=== PATIENT | male | born 1945 | race Caucasian/White ===

== ENCOUNTER → 2017-04-13 | Outpatient (CLI) | payer MEDICARE, BC ==
--- NOTE | 2017-04-14 07:07 | US ---
EXAMINATION TYPE: US carotid duplex BILAT DATE OF EXAM: 04/13/2017 COMPARISON: US 2014 CLINICAL HISTORY: htn, I10, I73.9 Peripheral vascular disease, unsp. PAD EXAM MEASUREMENTS: RIGHT: Peak Systolic Velocity (PSV) cm/sec ----- Right CCA: 100.9 ----- Right ICA: 123.0 ----- Right ECA: 115.3 ICA/CCA ratio: 1.2 RIGHT: End Diastole cm/sec ----- Right CCA: 18.3 ----- Right ICA: 34.5 ----- Right ECA: 0.0 LEFT: Peak Systolic Velocity (PSV) cm/sec ----- Left CCA: 80.6 ----- Left ICA: 133.6 ----- Left ECA: 155.5 ICA/CCA ratio: 1.7 LEFT: End Diastole cm/sec ----- Left CCA: 17.3 ----- Left ICA: 37.5 ----- Left ECA: 12.3 VERTEBRALS (direction of flow): Right Vertebral: Antegrade Left Vertebral: Antegrade Rhythm: Elevated velocities: left mid ICA and left mid ECA, no significant stenosis. IMPRESSION: 1. 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 2. No hemodynamically significant stenosis within the right carotid system.
--- NOTE | 2017-04-14 12:00 | ECHOF ---
Referral Reason:htn, I10, I73.9 Peripheral vascular disease, unsp MEASUREMENTS -------- HEIGHT: 170.2 cm WEIGHT: 71.2 kg BP: IVSd: 1.0 cm (0.6 - 1.1) LVIDd: 4.8 cm (3.9 - 5.3) LVPWd: 1.2 cm (0.6 - 1.1) IVSs: 1.5 cm LVIDs: 3.8 cm LVPWs: 1.5 cm LAESV Index (A-L): 29.56 ml/m Ao Diam: 3.1 cm (2.0 - 3.7) AV Cusp: 0.8 cm (1.5 - 2.6) LA Diam: 0.0 cm (2.7 - 3.8) MV E Robe: 0.98 m/s MV DecT: 286 ms MV A Robe: 0.70 m/s MV E/A Ratio: 1.40 AR PHT: 568 ms RAP: 5.00 mmHg RVSP: 27.35 mmHg FINDINGS -------- Sinus rhythm. Resting bradycardia (HR<60bpm). This was a technically good study. The left ventricular size is normal. There is borderline concentric left ventricular hypertrophy. Overall left ventricular systolic function is normal with, an EF between 55 - 60 %. The right ventricle is normal in size and function. LA is midly dilated 29-33ml/m2. The right atrium is normal in size. There is moderate aortic valve sclerosis. There is [id number] aortic regurgitation. The aor tic pressure half-time by doppler is 568ms. The mitral valve leaflets are mildly thickened. Mild mitral regurgitation is present. Trace tricuspid regurgitation present. Right ventricular systolic pressure is normal at < 35 mmHg. There is no evidence of pulmonary hypertension. The pulmonic valve was not well visualized. There is no pulmonic regurgitation present. The aortic root size is normal. Normal inferior vena cava with normal inspiratory collapse consistent with estimated right atrial pre ssure of 5 mmHg. There is no pericardial effusion. CONCLUSIONS -------- 1. Sinus rhythm. 2. Resting bradycardia (HR<60bpm). 3. This was a technically good study. 4. There is borderline concentric left ventricular hypertrophy. 5. Overall left ventricular systolic function is normal with, an EF between 55 - 60 %. 6. LA is midly dilated 29-33ml/m2. 7. There is moderate aortic valve sclerosis. 8. There is [id number] aortic regurgitation. 9. The mitral valve leaflets are mildly thickened. 10. Mild mitral regurgitation is present. 11. Trace tricuspid regurgitation present. 12. Right ventricular systolic pressure is normal at < 35 mmHg. 13. The pulmonic valve was not well visualized. 14. There is no pulmonic regurgitation present. 15. The aortic root size is normal. 16. There is no pericardial effusion. SPAR MACHINE OPERATOR HELPER: Cong Daniels RDCS
== END | disposition home or self-care (01) ==
LOC: RADECHMAIN 15:10
DX: I65.22 Occlusion and stenosis of left carotid artery (principal); I08.0 Rheumatic disorders of both mitral and aortic valves; I73.9 Peripheral vascular disease, unspecified; I10 Essential (primary) hypertension
CPT/HCPCS: 93306; 93880

== ENCOUNTER 2018-01-30 13:47 | Inpatient (IN) | payer BC, MEDICARE ==
[2018-01-30] MEDS ORDERED: SODIUM CHLORIDE 0.9% 1,000 ML IV STA (14:25)
[2018-01-30 14:42] LABS: Calcium 8.5 mg/dL (8.4-10.2); Potassium 4.7 mmol/L (3.5-5.1); Total Bilirubin 0.2 mg/dL (0.2-1.3); Total Protein 5.2 g/dL (6.3-8.2)
[2018-01-30 14:44] LABS: Basophils % (A) 0 %; Eosinophils % (A) 0 %; Lymphocytes # (A) 0.7 k/uL (1.0-4.8); Lymphocytes % (A) 11 %; MCH 33.1 pg (25.0-35.0); MCHC 32.1 g/dL (31.0-37.0); MCV 103.2 fL (80.0-100.0); Macrocytosis Slight; Mean Platelet Volume 10.4; Monocytes # (A) 0.4 k/uL (0-1.0); Monocytes % (A) 7 %; Neutrophils # (A) 5.1 k/uL (1.3-7.7); Neutrophils % (A) 79 %; Platelet Count 134 k/uL (150-450); RBC 1.66 m/uL (4.30-5.90); RDW 15.2 % (11.5-15.5); WBC 6.4 k/uL (3.8-10.6)
[2018-01-30 14:47] LABS: HCT 17.1 % (39.0-53.0); HGB 5.5 gm/dL (13.0-17.5)
[2018-01-30 14:54] LABS: Creatine Kinase 41 U/L (55-170)
[2018-01-30 14:56] LABS: INR 1.1 (<1.2); Prothrombin Time 10.4 sec (9.0-12.0)
[2018-01-30 15:00] LABS: Partial Thromboplastin Time 21.1 sec (22.0-30.0)
--- NOTE | 2018-01-30 15:06 | ED ---
Syncope HPI - General Chief Complaint: Syncope Stated Complaint: syncope Time Seen by Provider: 01/30/18 14:09 Source: EMS Mode of arrival: EMS Limitations: no limitations - History of Present Illness Initial Comments: 73 years old gentleman was driving and he felt dizzy, he asked his who was on the passenger seat to take over, they switched the [employer] driver's than a few minutes down the road 5 noticed that he passed out said he passed out for about term minute or 2 she also noticed that he was jerking his upper extremities in the air like he was trying to reach something then she noticed that it took a few minutes to get back to his baseline. Right now is complaining about some headache no chest pain no shortness of breath no pleuritic chest pain and abdominal pain no frequency urgency dysuria no symptoms of TIA or CVA - Related Data Home Medications Medication Instructions Recorded Confirmed Atenolol [Tenormin] 50 mg PO BID 03/26/16 01/30/18 Clopidogrel Bisulfate [Plavix] 75 mg PO DAILY 03/26/16 01/30/18 Finasteride [Proscar] 5 mg PO DAILY 03/26/16 01/30/18 Losartan/Hydrochlorothiazide 1 tab PO DAILY 03/26/16 01/30/18 [Losartan-Hctz 100-25 mg Tab] Meloxicam 15 mg PO DAILY 03/26/16 01/30/18 Simvastatin [Zocor] 20 mg PO HS 03/26/16 01/30/18 Tamsulosin [Flomax] 0.4 mg PO DAILY 03/26/16 01/30/18 Esomeprazole Magnesium [NexIUM] 20 mg PO DAILY 01/30/18 01/30/18 Allergies Allergy/AdvReac Type Severity Reaction Status Date / Time No Known Allergies Allergy Verified 01/30/18 14:32 Review of Systems ROS Statement: Those systems with pertinent positive or pertinent negative responses have been documented in the HPI. ROS Other: All systems not noted in ROS Statement are negative. Past Medical History Past Medical History: Hyperlipidemia, Hypertension, Osteoarthritis (OA) Additional Past Medical History / Comment(s): bad heart valve History of Any Multi-Drug Resistant Organisms: None Reported Past Surgical History: Appendectomy, Cholecystectomy Past Psychological History: No Psychological Hx Reported Smoking Status: Current every day smoker Past Alcohol Use History: None Reported Past Drug Use History: None Reported General Exam - General Exam Comments Initial Comments: General: The patient is awake and alert, he looks pale, tired, spacey Skin: Skin is warm and dry and no rashes or lesions are noted. Eye: Pupils are equal, round and reactive to light, both his pupils are Constricted but they are reactive to light and accommodation Ears, nose, mouth and throat: There are moist mucous membranes and no oral lesions. Neck: The neck is supple, there is no tenderness or JVD. Cardiovascular: There is a regular rate k/6 systolic murmur on the right side of the sternum at 3rd intercostal space Respiratory: To auscultation bilateral, no wheezing no rhonchi no distress respiratory wiley noticed Gastrointestinal: Soft, non-distended, non-tender abdomen without masses or organomegaly noted. There is no rebound or guarding present. Bowel sounds are unremarkable. Rectal exam was done noticed black tarry stool was noticed Back: There is no tenderness to palpation in the midline. There is no obvious deformity. Musculoskeletal: Normal ROM, no tenderness, There is no pedal edema. There is no calf tenderness or swelling. No cords were appreciated. Neurological: CN II-XII intact, Cranial nerves III through XII are intact. There are no obvious motor or sensory deficits. Coordination appears grossly intact. Speech is normal. Psychiatric: Cooperative, appropriate mood & affect, normal judgment. Limitations: no limitations Course Vital Signs 01/30/18 01/30/18 01/30/18 13:53 14:47 15:47 Pulse Rate 59 L 67 72 Respiratory 16 18 18 Rate Blood Pressure 114/53 142/63 137/65 O2 Sat by Pulse 92 L 96 96 Oximetry I spoke with the Dr. Cifuentes and informed them that hemoglobin is 5.5 troponin is negative occult blood that was positive I don't have patient's baseline hemoglobin have ordered 2 units of packed red cells EKG Findings - EKG Comments: EKG Findings:: KG is a sinus bradycardia ventricular rate is 67 ND interval is 132 QRS duration is 100 QT/QTc is 444/432 review of this EKG does not reveal any ST elevation or ST depression noticed some toe T waves in V4 V5 and V6 Medical Decision Making - Lab Data Result diagrams: 01/30/18 13:56 01/30/18 13:56 Lab Results 01/30/18 01/30/18 01/30/18 Range/Units 13:56 13:56 13:56 WBC 6.4 (3.8-10.6) k/uL RBC 1.66 L (4.30-5.90) m/uL Hgb 5.5 L* (13.0-17.5) gm/dL Hct 17.1 L* (39.0-53.0) % MCV 103.2 H (80.0-100.0) fL MCH 33.1 (25.0-35.0) pg MCHC 32.1 (31.0-37.0) g/dL RDW 15.2 (11.5-15.5) % Plt Count 134 L (150-450) k/uL Neutrophils % 79 % Lymphocytes % 11 % Monocytes % 7 % Eosinophils % 0 % Basophils % 0 % Neutrophils # 5.1 (1.3-7.7) k/uL Lymphocytes # 0.7 L (1.0-4.8) k/uL Monocytes # 0.4 (0-1.0) k/uL Eosinophils # 0.0 (0-0.7) k/uL Basophils # 0.0 (0-0.2) k/uL Macrocytosis Slight PT (9.0-12.0) sec INR (<1.2) APTT (22.0-30.0) sec Sodium 132 L (137-145) mmol/L Potassium 4.7 (3.5-5.1) mmol/L Chloride 105 (98-107) mmol/L Carbon Dioxide 22 (22-30) mmol/L Anion Gap 5 mmol/L BUN 37 H (9-20) mg/dL Creatinine 1.20 (0.66-1.25) mg/dL Est GFR (CKD-EPI)AfAm 70 (>60 ml/min/1.73 sqM) Est GFR (CKD-EPI)NonAf 61 (>60 ml/min/1.73 sqM) Glucose 128 H (74-99) mg/dL Calcium 8.5 (8.4-10.2) mg/dL Total Bilirubin 0.2 (0.2-1.3) mg/dL AST 15 L (17-59) U/L ALT 23 (21-72) U/L Alkaline Phosphatase 60 (38-126) U/L Total Creatine Kinase 41 L (55-170) U/L CK-MB (CK-2) 0.7 (0.0-2.4) ng/mL CK-MB (CK-2) Rel Index 1.7 Troponin I <0.012 (0.000-0.034) ng/mL Total Protein 5.2 L (6.3-8.2) g/dL Albumin 3.0 L (3.5-5.0) g/dL Stool Occult Blood (Negative) Blood Type Blood Type Confirm Blood Type Recheck Antibody Screen Crossmatch Spec Expiration Date 01/30/18 01/30/18 01/30/18 Range/Units 13:56 13:56 15:06 WBC (3.8-10.6) k/uL RBC (4.30-5.90) m/uL Hgb (13.0-17.5) gm/dL Hct (39.0-53.0) % MCV (80.0-100.0) fL MCH (25.0-35.0) pg MCHC (31.0-37.0) g/dL RDW (11.5-15.5) % Plt Count (150-450) k/uL Neutrophils % % Lymphocytes % % Monocytes % % Eosinophils % % Basophils % % Neutrophils # (1.3-7.7) k/uL Lymphocytes # (1.0-4.8) k/uL Monocytes # (0-1.0) k/uL Eosinophils # (0-0.7) k/uL Basophils # (0-0.2) k/uL Macrocytosis PT 10.4 (9.0-12.0) sec INR 1.1 (<1.2) APTT 21.1 L (22.0-30.0) sec Sodium (137-145) mmol/L Potassium (3.5-5.1) mmol/L Chloride (98-107) mmol/L Carbon Dioxide (22-30) mmol/L Anion Gap mmol/L BUN (9-20) mg/dL Creatinine (0.66-1.25) mg/dL Est GFR (CKD-EPI)AfAm (>60 ml/min/1.73 sqM) Est GFR (CKD-EPI)NonAf (>60 ml/min/1.73 sqM) Glucose (74-99) mg/dL Calcium (8.4-10.2) mg/dL Total Bilirubin (0.2-1.3) mg/dL AST (17-59) U/L ALT (21-72) U/L Alkaline Phosphatase (38-126) U/L Total Creatine Kinase (55-170) U/L CK-MB (CK-2) (0.0-2.4) ng/mL CK-MB (CK-2) Rel Index Troponin I (0.000-0.034) ng/mL Total Protein (6.3-8.2) g/dL Albumin (3.5-5.0) g/dL Stool Occult Blood Positive (Negative) Blood Type A Positive Blood Type Confirm Blood Type Recheck CABO Indicated Antibody Screen NEGATIVE Crossmatch See Detail Spec Expiration Date 02/02/2018 - 235501/30/18 Range/Units 15:50 WBC (3.8-10.6) k/uL RBC (4.30-5.90) m/uL Hgb (13.0-17.5) gm/dL Hct (39.0-53.0) % MCV (80.0-100.0) fL MCH (25.0-35.0) pg MCHC (31.0-37.0) g/dL RDW (11.5-15.5) % Plt Count (150-450) k/uL Neutrophils % % Lymphocytes % % Monocytes % % Eosinophils % % Basophils % % Neutrophils # (1.3-7.7) k/uL Lymphocytes # (1.0-4.8) k/uL Monocytes # (0-1.0) k/uL Eosinophils # (0-0.7) k/uL Basophils # (0-0.2) k/uL Macrocytosis PT (9.0-12.0) sec INR (<1.2) APTT (22.0-30.0) sec Sodium (137-145) mmol/L Potassium (3.5-5.1) mmol/L Chloride (98-107) mmol/L Carbon Dioxide (22-30) mmol/L Anion Gap mmol/L BUN (9-20) mg/dL Creatinine (0.66-1.25) mg/dL Est GFR (CKD-EPI)AfAm (>60 ml/min/1.73 sqM) Est GFR (CKD-EPI)NonAf (>60 ml/min/1.73 sqM) Glucose (74-99) mg/dL Calcium (8.4-10.2) mg/dL Total Bilirubin (0.2-1.3) mg/dL AST (17-59) U/L ALT (21-72) U/L Alkaline Phosphatase (38-126) U/L Total Creatine Kinase (55-170) U/L CK-MB (CK-2) (0.0-2.4) ng/mL CK-MB (CK-2) Rel Index Troponin I (0.000-0.034) ng/mL Total Protein (6.3-8.2) g/dL Albumin (3.5-5.0) g/dL Stool Occult Blood (Negative) Blood Type Blood Type Confirm A Positive Blood Type Recheck Antibody Screen Crossmatch Spec Expiration Date Critical Care Time Total Critical Care Time: 30 Critical Care Time: He passed out because of the low hemoglobin is hemoglobin is 5.[address] is normal I spoke with the Dr. robertson she agreed with the his admission to the ICU he got 2 units of packed red cells along with some fluids I would consult Dr. Gandhi for possible scope, he would benefit from EGD and colonoscopy. Will do serial H&H every 6 hours 24 Disposition Clinical Impression: Syncopal episodes, Symptomatic anemia, GI bleed, Sinusitis Disposition: ADMITTED IP TO THIS HOSP Condition: Good Referrals: Kendall Chatman DO [Primary Care Provider] - 1-2 days
[2018-01-30 15:07] LABS: Creatine Kinase MB 0.7 ng/mL (0.0-2.4); Troponin I <0.012 ng/mL (0.000-0.034)
[2018-01-30] MEDS ORDERED: PANTOPRAZOLE 40 MG/10 ML VIAL IVP ONE (15:43)
--- NOTE | 2018-01-30 15:48 | CT ---
EXAMINATION TYPE: CT brain wo con DATE OF EXAM: 01/30/2018 HISTORY: syncope CT DLP: 935.4 mGycm. Automated Exposure Control for Dose Reduction was Utilized. TECHNIQUE: CT scan of the head is performed without contrast. COMPARISON: None. FINDINGS: There is no acute intracranial hemorrhage, mass effect, or midline shift identified. The ventricles and sulci are within normal limits in size. The globes are intact. Opacification of the bi lateral maxilla sinuses. IMPRESSION: No acute intracranial hemorrhage or midline shift. Bilateral maxillary sinus disease.
--- NOTE | 2018-01-30 16:48 | XR ---
EXAMINATION TYPE: XR chest 2V DATE OF EXAM: 01/30/2018 COMPARISON: NONE HISTORY: Syncope and weakness TECHNIQUE: Frontal and lateral views of the chest are obtained. FINDINGS: No focal consolidation, pleural effusion or pneumothorax. Increased interstitial markings are favored to be chronic. The cardiomediastinal silhouette is within normal limits. Surgical clips i n the correct location of the gallbladder fossa. Exaggerated kyphosis is evident which is likely chronometer adjuster ricardo. No acute fracture. IMPRESSION: No acute cardiopulmonary process.
[2018-01-30] MEDS ORDERED: NALOXONE 0.4 MG/ML 1 ML VIAL IV PRN (17:00)
[2018-01-30] MEDS ORDERED: MORPHINE SULFATE 2 MG/ML SYRINGE IV PRN (17:00)
[2018-01-30] MEDS ORDERED: ACETAMINOPHEN TAB 325 MG TAB PO PRN (17:00)
[2018-01-30 17:19] LABS: Appearance,Urine Clear (Clear); Bilirubin,Urine Negative (Negative); Blood,Urine Negative (Negative); Color,Urine Light Yellow; Glucose,Urine (UA) Negative (Negative); Ketones,Urine Negative (Negative); Leukocyte Esterase,Urine Trace (Negative); Nitrite,Urine Negative (Negative); Protein,Urine Negative (Negative); RBC,Urine <1 /hpf (0-5); Squamous Epithelial Cell,Urine <1 /hpf (0-4); Urobilinogen,Urine <2.0 mg/dL (<2.0); WBC,Urine 2 /hpf (0-5)
[2018-01-30 18:11] LABS: Glucose,Whole Blood 122 mg/dL (75-99)
[2018-01-30] MEDS: SODIUM CHLORIDE 0.9% 1,000 ML IV SCH (18:51)
[2018-01-30 19:46] LABS: Albumin 3.2 g/dL (3.5-5.0); Calcium 8.5 mg/dL (8.4-10.2); Potassium 4.4 mmol/L (3.5-5.1); Total Bilirubin 0.4 mg/dL (0.2-1.3); Total Protein 5.4 g/dL (6.3-8.2)
[2018-01-30] MEDS: ATENOLOL 50 MG TAB PO SCH (21:04)
[2018-01-30] MEDS: ATORVASTATIN 10 MG TAB PO SCH (21:04)
[2018-01-30] MEDS: LOSARTAN-HCTZ 50-12.5 MG 1 EACH TAB PO SCH (21:40)
[2018-01-31 01:33] LABS: Anisocytosis Slight; HCT 22.6 % (39.0-53.0); MCH 32.1 pg (25.0-35.0); Macrocytosis Slight; Mean Platelet Volume 10.9; Platelet Count 105 k/uL (150-450); RBC 2.33 m/uL (4.30-5.90); WBC 4.3 k/uL (3.8-10.6)
[2018-01-31 01:36] LABS: HGB 7.5 gm/dL (13.0-17.5); MCV 97.3 fL (80.0-100.0)
[2018-01-31 02:17] LABS: Lymphocytes # (M) 1.42 k/uL (1.0-4.8); Monocytes # (M) 0.52 k/uL (0-1.0); Neutrophils # (M) 2.37 k/uL (1.3-7.7); Neutrophils % (M) 55 %; Nucleated Red Blood Cells 0 /100 WBC (0-0); Total Cells Counted 100
[2018-01-31 02:21] LABS: Rouleaux Present
[2018-01-31 05:22] LABS: Anisocytosis Slight; Basophils % (A) 0 %; Eosinophils % (A) 0 %; HCT 24.9 % (39.0-53.0); HGB 8.3 gm/dL (13.0-17.5); Lymphocytes # (A) 1.3 k/uL (1.0-4.8); Lymphocytes % (A) 29 %; MCHC 33.2 g/dL (31.0-37.0); MCV 96.6 fL (80.0-100.0); Macrocytosis Slight; Mean Platelet Volume 10.9; Monocytes # (A) 0.4 k/uL (0-1.0); Monocytes % (A) 10 %; Neutrophils # (A) 2.5 k/uL (1.3-7.7); Neutrophils % (A) 56 %; Platelet Count 113 k/uL (150-450); RBC 2.58 m/uL (4.30-5.90); WBC 4.5 k/uL (3.8-10.6)
[2018-01-31 05:33] LABS: Calcium 8.4 mg/dL (8.4-10.2); Magnesium 1.6 mg/dL (1.6-2.3); Phosphorus 3.3 mg/dL (2.5-4.5); Potassium 4.2 mmol/L (3.5-5.1)
[2018-01-31] MEDS ORDERED: Magnesium Replacement Protocol 1 EACH MISC MISCELLANE PRN (05:34)
[2018-01-31] MEDS: MAGNESIUM SULFATE-D5W PMX 1 GM in DEXTROSE/WATER 1 100ML.BAG IVPB SCH ×2 (05:45→08:49)
[2018-01-31] MEDS: SODIUM CHLORIDE 0.9% 1,000 ML IV SCH ×2 (05:45→16:14)
[2018-01-31] MEDS: FINASTERIDE 5 MG TAB PO SCH (08:53)
[2018-01-31] MEDS: TAMSULOSIN 0.4 MG CAP.ER.24H PO SCH (08:53)
[2018-01-31] MEDS ORDERED: LOSARTAN-HCTZ 50-12.5 MG 1 EACH TAB PO SCH (09:00)
[2018-01-31] MEDS ORDERED: PANTOPRAZOLE 40 MG/10 ML VIAL IVP SCH (09:00)
--- NOTE | 2018-01-31 11:09 | P.CNPUL ---
<Rhonda Diaz E - Last Filed: 01/31/18 10:44> History of Present Illness Consult date: 01/31/18 Requesting physician: Clint Cifuentes Reason for consult: other (ICU management for GI bleed) Chief complaint: syncope History of present illness: This is a 73-year-old male patient being seen examined and evaluated today on rounds. He came into the hospital yesterday after driving he felt dizzy and passed out in the passenger side of the car for approximately 2 minutes. The had to shake and rattle him see him to wake up and become alert again. He was then brought into the emergency room for further evaluation and workup. The patient was noted to have a hemoglobin of 5.5. Apparently the patient had been having dark stools for the past 3-4 days and had some mild achy abdominal pain. He states he does not have a history of bleeding. He is on Plavix per his primary care provider, which is he states is due to a bad valve, however he is unsure of which valve it is. The patient states he usually goes for yearly echoes. He has no history of PEs or DVTs in the past. Patient was given 2 units of packed red blood cells and did have an improvement in his hemoglobin to 8.3 today. The patient states he did have 1 small dark tarry stool overnight. CT of the brain was obtained and was negative for any acute hemorrhage or midline shift, he did have bilateral maxillary sinus disease. Patient does have a history of left-sided carotid stenosis surgery in the past. He states he is currently a one pack per day smoker for approximately 30 years. He denies any COPD asthma or home oxygen use. Denies any alcohol or drug use. Review of Systems 14 point review of systems was completed and is negative unless noted above in the HPI Past Medical History Past Medical History: Hyperlipidemia, Hypertension, Osteoarthritis (OA), Syncope Additional Past Medical History / Comment(s): bad heart valve, left sided carotid stenosis History of Any Multi-Drug Resistant Organisms: None Reported Past Surgical History: Appendectomy, Cholecystectomy Past Anesthesia/Blood Transfusion Reactions: No Reported Reaction Past Psychological History: No Psychological Hx Reported Smoking Status: Current every day smoker Past Alcohol Use History: None Reported Past Drug Use History: None Reported Medications and Allergies Home Medications Medication Instructions Recorded Confirmed Type Atenolol [Tenormin] 50 mg PO BID 03/26/16 01/30/18 History Clopidogrel Bisulfate [Plavix] 75 mg PO DAILY 03/26/16 01/30/18 History Finasteride [Proscar] 5 mg PO DAILY 03/26/16 01/30/18 History Losartan/Hydrochlorothiazide 1 tab PO DAILY 03/26/16 01/30/18 History [Losartan-Hctz 100-25 mg Tab] Meloxicam 15 mg PO DAILY 03/26/16 01/30/18 History Simvastatin [Zocor] 20 mg PO HS 03/26/16 01/30/18 History Tamsulosin [Flomax] 0.4 mg PO DAILY 03/26/16 01/30/18 History Esomeprazole Magnesium [NexIUM] 20 mg PO DAILY 01/30/18 01/30/18 History Allergies Allergy/AdvReac Type Severity Reaction Status Date / Time No Known Allergies Allergy Verified 01/30/18 14:32 Physical Exam Vitals: Vital Signs Temp Pulse Resp BP Pulse Ox 01/31/18 10:00 65 25 H 131/59 97 01/31/18 09:00 64 15 107/45 97 01/31/18 08:00 98.1 F 61 12 107/45 94 L 01/31/18 07:00 63 14 100/45 94 L 01/31/18 06:00 64 14 107/47 97 01/31/18 05:00 65 14 110/52 95 01/31/18 04:00 98.2 F 74 12 98/44 94 L 01/31/18 03:00 64 12 102/48 93 L 01/31/18 02:00 75 12 123/60 95 01/31/18 01:00 70 10 L 105/45 98 01/31/18 00:03 64 12 103/44 96 01/31/18 00:00 98.0 F 66 15 103/44 95 01/30/18 23:05 98.0 F 66 12 140/51 100 01/30/18 23:00 71 11 L 140/51 96 01/30/18 22:00 69 16 135/62 100 01/30/18 21:32 97.8 F 77 22 135/62 100 01/30/18 21:30 82 20 135/62 100 01/30/18 21:02 98.2 F 82 18 143/71 98 01/30/18 21:00 74 23 132/63 98 01/30/18 20:52 98.1 F 73 16 132/63 100 01/30/18 20:30 79 21 140/60 100 01/30/18 20:00 97.8 F 64 22 103/52 100 01/30/18 19:30 97.8 F 78 24 141/66 100 01/30/18 19:00 77 31 H 129/58 92 L 01/30/18 18:30 70 14 109/50 100 01/30/18 18:07 82 11 L 01/30/18 17:36 97.4 F L 67 18 127/56 97 01/30/18 17:06 97 F L 70 18 127/58 100 01/30/18 16:56 97.9 F 69 18 125/56 100 01/30/18 15:47 72 18 137/65 96 01/30/18 14:47 67 18 142/63 96 01/30/18 13:53 59 L 16 114/53 92 L Intake and Output 01/30/18 01/31/18 01/31/18 22:59 06:59 14:59 Intake Total 1020 1420 600 Output Total 0 Balance 1020 1420 600 Intake: IV 400 800 600 Sodium Chloride 0.9% 1, 400 800 400 000 ml @ 100 mls/hr IV . Q10H [facility] Rx#:[id number] magnesium 200 Blood Product 620 620 Rc As-1 Unit 0 310 [id number] Rc As-1 Unit 310 [id number] Output: Urine 0 Other: Voiding Method Toilet Toilet Toilet # Voids 1 1 1 # Bowel Movements 1 1 1 Weight 75.2 kg GENERAL EXAM: Alert, active, comfortable in no apparent distress, pale HEAD: Normocephalic. EYES: Normal reaction of pupils, equal size. NOSE: Clear with pink turbinates. THROAT: No erythema or exudates. NECK: No masses, no JVD. CHEST: No chest wall deformity. LUNGS: Equal air entry with no crackles, wheeze, rhonchi or dullness. CVS: S1 and S2 normal with no audible mumurs, regular rhythm. ABDOMEN: No hepatosplenomegaly, normal bowel sounds, no guarding or rigidity. EXTREMITIES: No edema noted, pedal pulses palpable. CENTRAL NERVOUS SYSTEM: No focal deficits, tone is normal in all 4 extremities. Results - Laboratory Findings CBC and BMP: 01/31/18 04:42 01/31/18 04:42 PT/INR, D-dimer PT 10.4 sec (9.0-12.0) 01/30/18 13:56 INR 1.1 (<1.2) 01/30/18 13:56 Abnormal lab findings: Abnormal Labs 01/30/18 01/30/18 01/30/18 13:56 13:56 13:56 RBC 1.66 L Hgb 5.5 L* Hct 17.1 L* MCV 103.2 H RDW Plt Count 134 L Lymphocytes # 0.7 L APTT Sodium 132 L Carbon Dioxide BUN 37 H Glucose 128 H POC Glucose (mg/dL) AST 15 L Total Creatine Kinase 41 L Total Protein 5.2 L Albumin 3.0 L Ur Leukocyte Esterase Crossmatch 01/30/18 01/30/18 01/30/18 13:56 13:56 17:00 RBC Hgb Hct MCV RDW Plt Count Lymphocytes # APTT 21.1 L Sodium Carbon Dioxide BUN Glucose POC Glucose (mg/dL) AST Total Creatine Kinase Total Protein Albumin Ur Leukocyte Esterase Trace H Crossmatch See Detail 01/30/18 01/30/18 01/31/18 18:08 19:15 01:02 RBC 2.33 L Hgb 7.5 L D Hct 22.6 L MCV RDW 18.0 H Plt Count 105 L Lymphocytes # APTT Sodium 134 L Carbon Dioxide BUN 30 H Glucose 123 H POC Glucose (mg/dL) 122 H AST 16 L Total Creatine Kinase Total Protein 5.4 L Albumin 3.2 L Ur Leukocyte Esterase Crossmatch 01/31/18 01/31/18 04:42 04:42 RBC 2.58 L Hgb 8.3 L Hct 24.9 L MCV RDW 18.0 H Plt Count 113 L Lymphocytes # APTT Sodium 133 L Carbon Dioxide 21 L BUN 23 H Glucose POC Glucose (mg/dL) AST Total Creatine Kinase Total Protein Albumin Ur Leukocyte Esterase Crossmatch - Diagnostic Findings Comments: CT Brain Chest x-ray: report reviewed, image reviewed Assessment and Plan Assessment: Assessment Syncopal episode Symptomatic anemia, acute blood loss, related to GI bleed Precipitous drop in hematocrit Sinusitis History of left carotid stenosis History of moderate aortic valve sclerosis History of mild to moderate aortic regurgitation History of hypertension Plan Patient should continue in ICU with close observation Continue to monitor for any overt signs of blood loss and hemoglobin levels GI on consult appreciate recommendations Obtain a carotid Doppler and echocardiogram Medications have been reviewed and will be continued as ordered. Continue with pulmonary hygiene, coughing and deep breathing exercises, and supportive care. Supplemental oxygen to maintain oxygen saturations of 92% or better in needed. GI and DVT prophylaxis. Protonix, early mobility and SCDs We will continue to monitor labs/results and adjust treatment as necessary. May for this consultation we will continue to follow this patient with you Further recommendations pending. I performed an examination of the patient and discussed their management with the nurse practitioner. I have reviewed the nurse practitioner's note and agree with the documented findings and plan of care. <Eneida Valdez - Last Filed: 01/31/18 14:17> Physical Exam Osteopathic Statement: *. No significant issues noted on an osteopathic structural exam other than those noted in the History and Physical/Consult. Vitals: Vital Signs Temp Pulse Resp BP Pulse Ox 01/31/18 12:00 68 14 119/51 97 01/31/18 11:00 63 13 108/47 96 01/31/18 10:00 65 25 H 131/59 97 01/31/18 09:00 64 15 107/45 97 01/31/18 08:00 98.1 F 61 12 107/45 94 L 01/31/18 07:00 63 14 100/45 94 L 01/31/18 06:00 64 14 107/47 97 01/31/18 05:00 65 14 110/52 95 01/31/18 04:00 98.2 F 74 12 98/44 94 L 01/31/18 03:00 64 12 102/48 93 L 01/31/18 02:00 75 12 123/60 95 01/31/18 01:00 70 10 L 105/45 98 01/31/18 00:03 64 12 103/44 96 01/31/18 00:00 98.0 F 66 15 103/44 95 01/30/18 23:05 98.0 F 66 12 140/51 100 01/30/18 23:00 71 11 L 140/51 96 01/30/18 22:00 69 16 135/62 100 01/30/18 21:32 97.8 F 77 22 135/62 100 01/30/18 21:30 82 20 135/62 100 01/30/18 21:02 98.2 F 82 18 143/71 98 01/30/18 21:00 74 23 132/63 98 01/30/18 20:52 98.1 F 73 16 132/63 100 01/30/18 20:30 79 21 140/60 100 01/30/18 20:00 97.8 F 64 22 103/52 100 01/30/18 19:30 97.8 F 78 24 141/66 100 01/30/18 19:00 77 31 H 129/58 92 L 01/30/18 18:30 70 14 109/50 100 01/30/18 18:07 82 11 L 01/30/18 17:36 97.4 F L 67 18 127/56 97 01/30/18 17:06 97 F L 70 18 127/58 100 01/30/18 16:56 97.9 F 69 18 125/56 100 01/30/18 15:47 72 18 137/65 96 01/30/18 14:47 67 18 142/63 96 Intake and Output 01/30/18 01/31/18 01/31/18 22:59 06:59 14:59 Intake Total 1020 1420 750 Output Total 0 Balance 1020 1420 750 Intake: IV 400 800 750 Sodium Chloride 0.9% 1, 400 800 550 000 ml @ 100 mls/hr IV . Q10H [facility] Rx#:[id number] magnesium 200 Blood Product 620 620 Rc As-1 Unit 0 310 [id number] Rc As-1 Unit 310 [id number] Output: Urine 0 Other: Voiding Method Toilet Toilet Toilet # Voids 1 1 1 # Bowel Movements 1 1 1 Weight 75.2 kg Results - Laboratory Findings CBC and BMP: 01/31/18 12:20 01/31/18 04:42 PT/INR, D-dimer PT 10.4 sec (9.0-12.0) 01/30/18 13:56 INR 1.1 (<1.2) 01/30/18 13:56 Abnormal lab findings: Abnormal Labs 01/30/18 01/30/18 01/30/18 13:56 13:56 13:56 RBC 1.66 L Hgb 5.5 L* Hct 17.1 L* MCV 103.2 H RDW Plt Count 134 L Lymphocytes # 0.7 L APTT Sodium 132 L Carbon Dioxide BUN 37 H Glucose 128 H POC Glucose (mg/dL) AST 15 L Total Creatine Kinase 41 L Total Protein 5.2 L Albumin 3.0 L Ur Leukocyte Esterase Crossmatch 01/30/18 01/30/18 01/30/18 13:56 13:56 17:00 RBC Hgb Hct MCV RDW Plt Count Lymphocytes # APTT 21.1 L Sodium Carbon Dioxide BUN Glucose POC Glucose (mg/dL) AST Total Creatine Kinase Total Protein Albumin Ur Leukocyte Esterase Trace H Crossmatch See Detail 01/30/18 01/30/18 01/31/18 18:08 19:15 01:02 RBC 2.33 L Hgb 7.5 L D Hct 22.6 L MCV RDW 18.0 H Plt Count 105 L Lymphocytes # APTT Sodium 134 L Carbon Dioxide BUN 30 H Glucose 123 H POC Glucose (mg/dL) 122 H AST 16 L Total Creatine Kinase Total Protein 5.4 L Albumin 3.2 L Ur Leukocyte Esterase Crossmatch 01/31/18 01/31/18 01/31/18 04:42 04:42 12:20 RBC 2.58 L 2.56 L Hgb 8.3 L 8.2 L Hct 24.9 L 24.9 L MCV RDW 18.0 H 18.4 H Plt Count 113 L 102 L Lymphocytes # APTT Sodium 133 L Carbon Dioxide 21 L BUN 23 H Glucose POC Glucose (mg/dL) AST Total Creatine Kinase Total Protein Albumin Ur Leukocyte Esterase Crossmatch Assessment and Plan Assessment: patient seen and examined in the intensive care with family at bedside. The patient states he is feeling okay. He has not had any more syncopal episodes. The patient has been hemodynamically stable. He did receive blood transfusion overnight. Hemoglobin improved from 5.5-2.3. The patient is complaining of some abdominal discomfort. He also had dark tarry stools. He is an active smoker. Patient will remain in the intensive care area today. We will order carotid Doppler and echocardiogram. Gastroenterology evaluation pending. Patient is to remain nothing by mouth. Continue Protonix and SCDs. Transfuse for hemoglobin less than 7. ~Eneida Valdez,
[2018-01-31 12:39] LABS: Anisocytosis Slight; Basophils % (A) 0 %; Eosinophils % (A) 0 %; HCT 24.9 % (39.0-53.0); HGB 8.2 gm/dL (13.0-17.5); Lymphocytes % (A) 21 %; MCH 32.1 pg (25.0-35.0); MCV 97.2 fL (80.0-100.0); Macrocytosis Slight; Mean Platelet Volume 11.5; Monocytes # (A) 0.4 k/uL (0-1.0); Monocytes % (A) 8 %; Neutrophils # (A) 3.1 k/uL (1.3-7.7); Neutrophils % (A) 66 %; Platelet Count 102 k/uL (150-450); RBC 2.56 m/uL (4.30-5.90); RDW 18.4 % (11.5-15.5); WBC 4.6 k/uL (3.8-10.6)
[2018-01-31 14:04] LABS: Large Platelets Present
[2018-01-31] MEDS ORDERED: MIDAZOLAM 2 MG/2 ML VIAL ONE (14:13)
[2018-01-31] MEDS ORDERED: LIDOCAINE 1% INJ 10MG/ML (20 ML MDV) ONE (14:13)
[2018-01-31] MEDS ORDERED: PROPOFOL 10 MG/ML 20 ML VIAL IV ONE (14:13)
[2018-01-31] MEDS ORDERED: LACTATED RINGERS 1,000 ML IV ONE (14:17)
[2018-01-31] MEDS: ATENOLOL 50 MG TAB PO SCH ×2 (14:33→21:13)
[2018-01-31 15:21] LABS: Hemoglobin A1C 5.3 % (4.0-6.0)
--- NOTE | 2018-01-31 16:09 | P.CONS ---
History of Present Illness - Reason for Consult Consult date: 01/31/18 Anemia of acute blood loss, melena Requesting physician: Clint Cifuentes - Chief Complaint Syncopal episode - History of Present Illness The patient is a 73-year-old male who has a past medical history significant for hyperlipidemia, hypertension, osteoarthritis and prior surgical history consistent of appendectomy and cholecystectomy who presented to the hospital after a syncopal episode. Per the patient he was driving with his when he began to feel dizzy and the two switched seats. The patient then had a syncopal episode and was brought to the emergency department for further workup. At the emergency department the patient was noted to have a hemoglobin of 5.5. He is on Plavix therapy daily. In addition he reports daily use of naproxen over the past 2 weeks, taking the medication once to twice daily for treatment of osteoarthritis. The patient denies any history of peptic ulcer disease, has no prior EGD and last colonoscopy was approximately 10 years ago significant for polypectomy. The patient reports associated nausea without any vomiting. He denies any bright red blood per rectum but reports that over the last few days he has had black tarry bowel movements. He reports that this is different than his baseline one bowel movement normal in color and consistency every other day. No abdominal pain reported. The patient is a previous smoker. The patient does take Nexium daily for treatment of reflux disease. Past endoscopic history: Colonoscopy approximately 10 years ago significant for polypectomy per the patient. No prior EGD Social history: Every day smoker, denies excessive alcohol use, denies illicit drug use. Family history noncontributory. Review of Systems REVIEW OF SYSTEMS: CARDIOPULMONARY: Denies chest pain or shortness of breath at this time. GENITOURINARY: No dysuria or hematuria. MUSCULOSKELETAL: No weakness reported. SKIN: Denies any new rashes or lesions, jaundice or pallor. PSYCHIATRIC: Denies any depression or anxiety. NEUROLOGY: Denies headache, denies any new focal deficits, the patient did have a syncopal episode prior to presentation. EARS: No tinnitus, discharge or new hearing loss. NOSE: No discharge or congestion. EYES: No pain in eyes or change in vision. CONSTITUTIONAL: No recent weight loss. No fever, chills, night sweats. Past Medical History Past Medical History: Hyperlipidemia, Hypertension, Osteoarthritis (OA), Syncope Additional Past Medical History / Comment(s): bad heart valve, left sided carotid stenosis History of Any Multi-Drug Resistant Organisms: None Reported Past Surgical History: Appendectomy, Cholecystectomy Past Anesthesia/Blood Transfusion Reactions: No Reported Reaction Past Psychological History: No Psychological Hx Reported Smoking Status: Current every day smoker Past Alcohol Use History: None Reported Past Drug Use History: None Reported Medications and Allergies Home Medications Medication Instructions Recorded Confirmed Type Atenolol [Tenormin] 50 mg PO BID 03/26/16 01/30/18 History Clopidogrel Bisulfate [Plavix] 75 mg PO DAILY 03/26/16 01/30/18 History Finasteride [Proscar] 5 mg PO DAILY 03/26/16 01/30/18 History Losartan/Hydrochlorothiazide 1 tab PO DAILY 03/26/16 01/30/18 History [Losartan-Hctz 100-25 mg Tab] Meloxicam 15 mg PO DAILY 03/26/16 01/30/18 History Simvastatin [Zocor] 20 mg PO HS 03/26/16 01/30/18 History Tamsulosin [Flomax] 0.4 mg PO DAILY 03/26/16 01/30/18 History Esomeprazole Magnesium [NexIUM] 20 mg PO DAILY 01/30/18 01/30/18 History Allergies Allergy/AdvReac Type Severity Reaction Status Date / Time No Known Allergies Allergy Verified 01/30/18 14:32 Physical Exam Vitals: Vital Signs Temp Pulse Resp BP Pulse Ox 01/31/18 15:00 61 18 110/46 97 01/31/18 14:00 69 20 117/50 96 01/31/18 13:00 64 28 H 125/56 98 01/31/18 12:00 68 18 119/51 97 01/31/18 11:00 63 13 108/47 96 01/31/18 10:00 65 25 H 131/59 97 01/31/18 09:00 64 15 107/45 97 01/31/18 08:00 98.1 F 61 12 107/45 94 L 01/31/18 07:00 63 14 100/45 94 L 01/31/18 06:00 64 14 107/47 97 01/31/18 05:00 65 14 110/52 95 01/31/18 04:00 98.2 F 74 12 98/44 94 L 01/31/18 03:00 64 12 102/48 93 L 01/31/18 02:00 75 12 123/60 95 01/31/18 01:00 70 10 L 105/45 98 01/31/18 00:03 64 12 103/44 96 01/31/18 00:00 98.0 F 66 15 103/44 95 01/30/18 23:05 98.0 F 66 12 140/51 100 01/30/18 23:00 71 11 L 140/51 96 01/30/18 22:00 69 16 135/62 100 01/30/18 21:32 97.8 F 77 22 135/62 100 01/30/18 21:30 82 20 135/62 100 01/30/18 21:02 98.2 F 82 18 143/71 98 01/30/18 21:00 74 23 132/63 98 01/30/18 20:52 98.1 F 73 16 132/63 100 01/30/18 20:30 79 21 140/60 100 01/30/18 20:00 97.8 F 64 22 103/52 100 01/30/18 19:30 97.8 F 78 24 141/66 100 01/30/18 19:00 77 31 H 129/58 92 L 01/30/18 18:30 70 14 109/50 100 01/30/18 18:07 82 11 L 01/30/18 17:36 97.4 F L 67 18 127/56 97 01/30/18 17:06 97 F L 70 18 127/58 100 01/30/18 16:56 97.9 F 69 18 125/56 100 01/30/18 15:47 72 18 137/65 96 Intake and Output 01/31/18 01/31/18 01/31/18 06:59 14:59 22:59 Intake Total 1420 1150 100 Balance 1420 1150 100 Intake: IV 800 1150 100 Sodium Chloride 0.9% 1, 800 750 100 000 ml @ 100 mls/hr IV . Q10H [facility] Rx#:[id number] magnesium 200 Blood Product 620 Rc As-1 Unit 310 [id number] Other: Voiding Method Toilet Toilet # Voids 1 1 # Bowel Movements 1 1 Weight 75.2 kg On physical examination, patient appears comfortable in no apparent distress. HEAD: Normocephalic, atraumatic. EYES: No scleral icterus. No conjunctival injection. MOUTH: No lesions, tongue midline. NECK: Trachea midline, no gross abnormalities. CHEST: Decreased air entry in all lung tirado with no wheezing or rhonchi appreciated. HEART: Regular rate and rhythm. ABDOMEN: Soft, obese. Bowel sounds are positive. No organomegaly. No guarding or rigidity. EXTREMITIES: No pedal edema. SKIN: No rashes, no jaundice. NEUROLOGIC: Alert and oriented x3. No focal deficits. Results CBC & Chem 7: 01/31/18 12:20 01/31/18 04:42 Labs: Abnormal Lab Results - Last 24 Hours (Table) 01/30/18 01/30/18 01/30/18 Range/Units 13:56 17:00 18:08 RBC (4.30-5.90) m/uL Hgb (13.0-17.5) gm/dL Hct (39.0-53.0) % RDW (11.5-15.5) % Plt Count (150-450) k/uL Sodium (137-145) mmol/L Carbon Dioxide (22-30) mmol/L BUN (9-20) mg/dL Glucose (74-99) mg/dL POC Glucose (mg/dL) 122 H (75-99) mg/dL AST (17-59) U/L Total Protein (6.3-8.2) g/dL Albumin (3.5-5.0) g/dL Ur Leukocyte Esterase Trace H (Negative) Crossmatch See Detail 01/30/18 01/31/18 01/31/18 Range/Units 19:15 01:02 04:42 RBC 2.33 L 2.58 L (4.30-5.90) m/uL Hgb 7.5 L D 8.3 L (13.0-17.5) gm/dL Hct 22.6 L 24.9 L (39.0-53.0) % RDW 18.0 H 18.0 H (11.5-15.5) % Plt Count 105 L 113 L (150-450) k/uL Sodium 134 L (137-145) mmol/L Carbon Dioxide (22-30) mmol/L BUN 30 H (9-20) mg/dL Glucose 123 H (74-99) mg/dL POC Glucose (mg/dL) (75-99) mg/dL AST 16 L (17-59) U/L Total Protein 5.4 L (6.3-8.2) g/dL Albumin 3.2 L (3.5-5.0) g/dL Ur Leukocyte Esterase (Negative) Crossmatch 01/31/18 01/31/18 Range/Units 04:42 12:20 RBC 2.56 L (4.30-5.90) m/uL Hgb 8.2 L (13.0-17.5) gm/dL Hct 24.9 L (39.0-53.0) % RDW 18.4 H (11.5-15.5) % Plt Count 102 L (150-450) k/uL Sodium 133 L (137-145) mmol/L Carbon Dioxide 21 L (22-30) mmol/L BUN 23 H (9-20) mg/dL Glucose (74-99) mg/dL POC Glucose (mg/dL) (75-99) mg/dL AST (17-59) U/L Total Protein (6.3-8.2) g/dL Albumin (3.5-5.0) g/dL Ur Leukocyte Esterase (Negative) Crossmatch CT Scan - head: report reviewed (No acute findings) Assessment and Plan (1) Anemia associated with acute blood loss Narrative/Plan: Patient presenting with syncopal episode found to be anemic. Patient is a known user of daily NSAID therapy, and reports increased use over the past few weeks due to worsening osteoarthritis. The patient had multiple episodes of melanotic stool prior to presentation. Current Visit: Yes Status: Acute Code(s): D62 - ACUTE POSTHEMORRHAGIC ANEMIA SNOMED Code(s): 923857210 (2) Gastrointestinal hemorrhage with melena Narrative/Plan: Patient reporting black tarry stools over the past few days. Current Visit: Yes Status: Acute Code(s): K92.1 - MELENA SNOMED Code(s): 072304208 (3) History of gastroesophageal reflux (GERD) Narrative/Plan: On home therapy with Nexium OTC. Current Visit: Yes Status: Acute Code(s): Z87.19 - PERSONAL HISTORY OF OTHER DISEASES OF THE DIGESTIVE SYSTEM SNOMED Code(s): 20025752362663 Plan: Supportive care Nothing by mouth Plan for upper endoscopy today Continue Protonix IV Avoid NSAID use Continue to hold Plavix Follow CBC serially, transfuse PRBCs as needed Thank you for allowing us to participate in the care of this patient, we will continue to follow.
--- NOTE | 2018-01-31 16:16 | P.PCN ---
Date of Procedure: 01/31/18 Description of Procedure: BRIEF HISTORY: Patient is a 73-year-old, pleasant, who presents after syncopal episode and was found to be anemic with a hemoglobin of 5.5. The patient is on Plavix daily and has been using naproxen once to twice daily over the past 2 weeks for treatment of osteoarthritis. He is on Nexium daily therapy for treatment of reflux disease. The patient notes that he had 2-3 days of black tarry stools prior to presentation. PROCEDURE PERFORMED: Esophagogastroduodenoscopy with biopsy. PREOPERATIVE DIAGNOSIS: Anemia of acute blood loss, melena. IV sedation per anesthesia. PROCEDURE: After informed consent was obtained, the patient was brought into the endoscopy unit. IV sedation was administered by Anesthesia under continuous monitoring. Initially the Olympus GIF-190 video endoscope was inserted into the mouth. Esophagus intubated without any difficulty. It was gradually advanced into the stomach and duodenum and carefully examined. The bulb and the second part of the duodenum appeared normal. The scope at this time was withdrawn to the stomach, adequately insufflated with air, and upon careful examination, mucosa of the antrum, body, cardia and the fundus appeared grossly normal. On inspection of the antrum multiple mild superficial ulcerations were noted, with biopsies taken. Gastritis was also noted in the antrum and body, with biopsies taken. The scope was then withdrawn into the esophagus. The GE junction appeared normal. The esophagus appeared normal. The patient tolerated the procedure well and was sent back to the unit for continued monitoring IMPRESSION: 1. Multiple superficial ulcerations of the antrum likely secondary to NSAID use , biopsied. 2. Gastritis of the antrum and body, mild. Biopsied. RECOMMENDATIONS: The findings of this examination were discussed with the patient his and family. 1. Continue to monitor CBC. 2. Okay for clear liquid diet. 3. Continue Protonix 40 mg by mouth twice daily. 4. Avoid NSAID use. 5. Okay for Plavix to resume tomorrow. 6. Patient will need follow-up in the GI clinic in 2 weeks, he'll also need a surveillance colonoscopy given prior history of polyps. This should be scheduled as an outpatient. 7. Await pathology from biopsies.
--- NOTE | 2018-01-31 16:25 | US ---
EXAMINATION TYPE: US carotid duplex BILAT DATE OF EXAM: 01/31/2018 COMPARISON: NONE CLINICAL HISTORY: syncope. EXAM MEASUREMENTS: RIGHT: Peak Systolic Velocity (PSV) cm/sec ----- Right CCA: 126.3 ----- Right ICA: 146.8 ----- Right ECA: 146.8 ICA/CCA ratio: 1.2 RIGHT: End Diastole cm/sec ----- Right CCA: 20.3 ----- Right ICA: 19.1 ----- Right ECA: 0.0 LEFT: Peak Systolic Velocity (PSV) cm/sec ----- Left CCA: 96.8 ----- Left ICA: 137.03 ----- Left ECA: 109.7 ICA/CCA ratio: 1.4 LEFT: End Diastole cm/sec ----- Left CCA: 12.8 ----- Left ICA: 31.6 ----- Left ECA: 5.5 VERTEBRALS (direction of flow): Right Vertebral: Antegrade Left Vertebral: Antegrade Rhythm: Normal Mild atherosclerotic changes with velocity elevations seen in bilateral ICA's and right ECA without a ny significant stenosis. IMPRESSION: No hemodynamic significant stenosis of the proximal internal carotid arteries bilaterall y by Doppler criteria, an indirect measurement of carotid stenosis. Criteria for Assigning % of Stenosis / Diameter reduction (Estimation based on the indirect measurements of the internal carotid artery velocities (ICA PSV). 1. Normal (no stenosis)=ICA PSV < 125 cm/s: ratio < 2.0: ICA EDV<40 cm/s. 2. Less than 50% stenosis=ICA PSV < 125 cm/s: ratio < 2.0: ICA EDV<40 cm/s. 3. 50 to 69% stenosis=ICA PSV of 125 to 230 cm/s: ration 2.0 ? 4.0: ICA EDV 40-100 cm/s. 4. Greater than 70% stenosis to near occlusion= ICA PSV > 230 cm/s: ratio > 4.0: ICA EDV > 100 cm/s. 5. Near occlusion= ICA PSV velocities may be low or undetectable: variable ratio and ICA EDV. 6. Total occlusion=unable to detect flow.
[2018-01-31] MEDS: PANTOPRAZOLE 40 MG TABLET PO SCH (18:02)
[2018-01-31 18:47] LABS: Anisocytosis Slight; Basophils % (A) 0 %; Eosinophils % (A) 1 %; HCT 22.6 % (39.0-53.0); HGB 7.3 gm/dL (13.0-17.5); Lymphocytes # (A) 1.1 k/uL (1.0-4.8); Lymphocytes % (A) 27 %; MCH 31.7 pg (25.0-35.0); MCHC 32.2 g/dL (31.0-37.0); MCV 98.3 fL (80.0-100.0); Macrocytosis Slight; Mean Platelet Volume 11.1; Monocytes # (A) 0.4 k/uL (0-1.0); Monocytes % (A) 9 %; Neutrophils # (A) 2.5 k/uL (1.3-7.7); Neutrophils % (A) 60 %; Platelet Count 108 k/uL (150-450); RDW 18.4 % (11.5-15.5); WBC 4.1 k/uL (3.8-10.6)
[2018-01-31] MEDS: ATORVASTATIN 10 MG TAB PO SCH (21:13)
[2018-01-31] MEDS: LOSARTAN-HCTZ 50-12.5 MG 1 EACH TAB PO SCH (21:13)
--- NOTE | 2018-01-31 22:39 | HP ---
HISTORY AND PHYSICAL DATE OF SERVICE: 01/31/2018 PRESENTING COMPLAINT: Passed out. HISTORY OF PRESENTING COMPLAINT: This is a very pleasant 73-year-old patient who follows with Dr. Chatman. Chronic stable medical conditions include hypertension, hyperlipidemia, osteoarthritis, including the hips and lower back. Patient was driving a car with his and felt dizzy, and then actually patient passed out. There was no seizure activity. No tongue- biting or incontinence. No chest pain or palpitations. The patient was brought into the ER. He was found to have a hemoglobin of 5.5, and he was given 2 units of blood. The patient for last 3 days has been noticing dark stools. The patient does take Aleve because of arthritic pain that was getting worse. He had doubled up on the dose of Aleve. Patient did undergo EGD by Dr. Zamarripa from GI and was found to have gastritis, felt to be NSAID-induced. Patient does feel weak and tired, a bit better. I had come to see the patient earlier today, but the patient had gone to the endoscopy lab. REVIEW OF SYSTEMS: CONSTITUTIONAL: Tired. HEENT: None. RESPIRATORY: Occasional wheezing. CARDIOVASCULAR: None. GASTROINTESTINAL: No abdominal pain. GENITOURINARY: None. MUSCULOSKELETAL: Arthritic pain in the back and hips. DERMATOLOGICAL: None. HEMATOLOGICAL: None. LYMPHATICS: None. PSYCHIATRY: None. NEUROLOGICAL: None. PAST MEDICAL HISTORY: 1. Hyperlipidemia. 2. Hypertension. 3. Osteoarthritis. 4. Aortic stenosis. PAST SURGICAL HISTORY: 1. Appendectomy. 2. Cholecystectomy. SOCIAL HISTORY: The patient has been smoking about a pack a day for close to 40 years. 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 . No alcohol. FAMILY HISTORY: Reviewed; noncontributory to presentation. HOME MEDICATIONS: 1. Nexium 20 mg a day. 2. Flomax 0.4 mg a day. 3. Zocor 20 mg at bedtime. 4. Meloxicam 15 mg p.o. daily. 5. Losartan/hydrochlorothiazide 100/25 one tablet p.o. daily. 6. Proscar 5 mg p.o. daily. 7. Plavix 75 mg p.o. daily. 8. Tenormin 50 mg p.o. b.i.d. ALLERGIES: NONE. PHYSICAL EXAMINATION: VITAL SIGNS ON PRESENTATION: Temperature 97.9, pulse 70, respiration 18, blood pressure 127/58. GENERAL APPEARANCE: Average build. Lying in bed, tired-appearing. EYES: Pupils equal. Conjunctivae pale. HEENT: External appearance of nose and ears normal. Oral cavity normal. NECK: JVD not raised. Mass not palpable. RESPIRATORY: Effort normal. LUNGS: Decreased breath sounds and wheezing. CARDIOVASCULAR: First and second sounds normal. Soft ejection systolic murmur in the aortic area radiating to the neck. ABDOMEN: Soft, non-tender. Liver and spleen not palpable. LYMPHATIC: No lymph node palpable in neck or axillae. PSYCHIATRY: Alert and oriented x3. Mood and affect normal. NEUROLOGICAL: Pupils equal. Cranial nerves grossly intact. Power and sensation grossly intact. MUSCULOSKELETAL: Evidence of osteoarthritis, especially in the hands. INVESTIGATIONS: White count 6.5. Hemoglobin was 5.5, currently now 7.3. BUN 37, creatinine 1.20. Carotid Doppler shows no significant stenosis. ASSESSMENT: 1. Acute severe anemia from gastrointestinal blood loss secondary to non-steroidal anti-inflammatory drugs. 2. Multiple superficial ulcerations of the antrum of the stomach secondary to non- steroidal anti-inflammatory drug use and also patient on Plavix. 3. Essential hypertension. 4. Hyperlipidemia. 5. Primary osteoarthritis of multiple joints, bilateral. 6. Chronic nicotine dependence. Patient is an active cigarette smoker. 7. Chronic obstructive pulmonary disease in a current cigarette smoker. PLAN: Of course patient's NSAIDs were discontinued. The patient was put on PPIs, given IV fluids. Home medications will be resumed. We will hold off patient's Hyzaar for now until blood pressure comes up more. Patient will be put on DuoNeb. The patient was initially admitted to the ICU; can be late in the evening moved out of the ICU. Consultation was made to GI, Dr. Zamarrpia, and Dr. Manning from Critical Care. Smoking cessation counseling was done with the patient. I told him about his new diagnosis of COPD. The patient will get a nicotine patch. More than 3 minutes was spent on this aspect of the case. MMTITOL / SERENEN: [id number] /
[2018-02-01] MEDS: SODIUM CHLORIDE 0.9% 1,000 ML IV SCH ×3 (02:03→20:12)
[2018-02-01] MEDS: NICOTINE 21MG/24HR PATCH TRANSDERM SCH ×2 (02:04→08:25)
[2018-02-01] MEDS: IPRATROPIUM-ALBUTEROL 3 ML NEB INHALATION SCH ×4 (04:39→19:25)
[2018-02-01] MEDS: FINASTERIDE 5 MG TAB PO SCH (08:25)
[2018-02-01] MEDS: ATENOLOL 50 MG TAB PO SCH ×2 (08:25→20:11)
[2018-02-01] MEDS: TAMSULOSIN 0.4 MG CAP.ER.24H PO SCH (08:25)
[2018-02-01 08:33] LABS: Anion Gap 5 mmol/L; Blood Urea Nitrogen 13 mg/dL (9-20); Calcium 8.4 mg/dL (8.4-10.2); Carbon Dioxide 23 mmol/L (22-30); Chloride 105 mmol/L (98-107); Glucose 84 mg/dL (74-99); Magnesium 1.6 mg/dL (1.6-2.3); Phosphorus 2.8 mg/dL (2.5-4.5); Sodium 133 mmol/L (137-145)
[2018-02-01] MEDS: PANTOPRAZOLE 40 MG TABLET PO SCH ×2 (09:09→17:15)
--- NOTE | 2018-02-01 09:45 | P.PN ---
Subjective Progress Note Date: 02/01/18 History of present illness: This is a 73-year-old male patient being seen examined and evaluated today on rounds. He came into the hospital yesterday after driving he felt dizzy and passed out in the passenger side of the car for approximately 2 minutes. The had to shake and rattle him see him to wake up and become alert again. He was then brought into the emergency room for further evaluation and workup. The patient was noted to have a hemoglobin of 5.5. Apparently the patient had been having dark stools for the past 3-4 days and had some mild achy abdominal pain. He states he does not have a history of bleeding. He is on Plavix per his primary care provider, which is he states is due to a bad valve, however he is unsure of which valve it is. The patient states he usually goes for yearly echoes. He has no history of PEs or DVTs in the past. Patient was given 2 units of packed red blood cells and did have an improvement in his hemoglobin to 8.3 today. The patient states he did have 1 small dark tarry stool overnight. CT of the brain was obtained and was negative for any acute hemorrhage or midline shift, he did have bilateral maxillary sinus disease. Patient does have a history of left-sided carotid stenosis surgery in the past. He states he is currently a one pack per day smoker for approximately 30 years. He denies any COPD asthma or home oxygen use. Denies any alcohol or drug use. Interval history: 02/01/2018patient being seen examined and evaluated today on rounds. He is resting up in bed on room air. The patient did undergo an EGD yesterday with GI services. Multiple superficial ulcerations possibly related to NSAID use were observed and biopsy. Patient also was noted to have some mild gastritis which was also biopsied. He did have 1 dark tarry stool yesterday. He has not had any bowel movements today. Carotid Doppler was negative for any stenosis, echocardiogram is pending. His hemoglobin today is 7.3. He was downgraded from the intensive care unit yesterday. He has been hemodynamically stable Objective - Vital Signs Vital signs: Vital Signs Temp 97.9 F 02/01/18 04:37 Pulse 68 02/01/18 07:31 Resp 15 02/01/18 04:37 BP 126/58 02/01/18 04:37 Pulse Ox 96 02/01/18 04:37 Intake & Output 01/31/18 02/01/18 02/01/18 18:59 06:59 18:59 Intake Total 1550 2195 400 Output Total 800 Balance 1550 1395 400 Weight 75.2 kg Intake: IV 1550 1100 Sodium Chloride 0.9% 1, 1150 1100 000 ml @ 100 mls/hr IV . Q10H RHIANNA Rx#:[id number] magnesium 200 Oral 1095 400 Output: Urine 800 Other: Voiding Method Toilet Toilet Toilet # Voids 1 2 # Bowel Movements 1 - Exam GENERAL EXAM: Alert, active, comfortable in no apparent distress, pale HEAD: Normocephalic. EYES: Normal reaction of pupils, equal size. NOSE: Clear with pink turbinates. THROAT: No erythema or exudates. NECK: No masses, no JVD. CHEST: No chest wall deformity. LUNGS: Equal air entry with no crackles, wheeze, rhonchi or dullness. CVS: S1 and S2 normal with no audible mumurs, regular rhythm. ABDOMEN: No hepatosplenomegaly, normal bowel sounds, no guarding or rigidity. EXTREMITIES: No edema noted, pedal pulses palpable. CENTRAL NERVOUS SYSTEM: No focal deficits, tone is normal in all 4 extremities. - Labs CBC & Chem 7: 01/31/18 18:26 02/01/18 07:39 Labs: Abnormal Lab Results - Last 24 Hours (Table) 01/31/18 01/31/18 02/01/18 Range/Units 12:20 18:26 07:39 RBC 2.56 L 2.30 L (4.30-5.90) m/uL Hgb 8.2 L 7.3 L (13.0-17.5) gm/dL Hct 24.9 L 22.6 L (39.0-53.0) % RDW 18.4 H 18.4 H (11.5-15.5) % Plt Count 102 L 108 L (150-450) k/uL Sodium 133 L (137-145) mmol/L Assessment and Plan Assessment: Assessment Syncopal episode Symptomatic anemia, acute blood loss, related to GI bleed Precipitous drop in hematocrit Sinusitis History of left carotid stenosis History of moderate aortic valve sclerosis History of mild to moderate aortic regurgitation History of hypertension Multiple superficial ulcerations and mild gastritis on EGD procedure Plan Continue to monitor for any overt signs of blood loss and hemoglobin levels GI on consult appreciate recommendations Carotid Doppler reviewed and echocardiogram pending Medications have been reviewed and will be continued as ordered. Continue with pulmonary hygiene, coughing and deep breathing exercises, and supportive care. Supplemental oxygen to maintain oxygen saturations of 92% or better in needed. GI and DVT prophylaxis. Protonix, early mobility and SCDs We will continue to monitor labs/results and adjust treatment as necessary. May for this consultation we will continue to follow this patient with you Further recommendations pending. I performed an examination of the patient and discussed their management with the nurse practitioner. I have reviewed the nurse practitioner's note and agree with the documented findings and plan of care.
[2018-02-01 12:28] LABS: Anisocytosis Slight; HCT 22.4 % (39.0-53.0); HGB 7.3 gm/dL (13.0-17.5); MCH 32.3 pg (25.0-35.0); MCHC 32.6 g/dL (31.0-37.0); MCV 99.1 fL (80.0-100.0); Macrocytosis Slight; Mean Platelet Volume 11.5; RBC 2.27 m/uL (4.30-5.90); RDW 18.1 % (11.5-15.5); WBC 3.9 k/uL (3.8-10.6)
[2018-02-01 13:03] LABS: Eosinophils # (M) 0.04 k/uL (0-0.7)
--- NOTE | 2018-02-01 13:04 | ECHOF ---
Referral Reason:sncope MEASUREMENTS -------- HEIGHT: 170.2 cm WEIGHT: 74.8 kg BP: 131/59 IVSd: 1.1 cm (0.6 - 1.1) LVIDd: 4.1 cm (3.9 - 5.3) LVPWd: 1.1 cm (0.6 - 1.1) IVSs: 1.2 cm LVIDs: 2.1 cm LVPWs: 1.2 cm LAESV Index (A-L): 29.05 ml/m Ao Diam: 3.0 cm (2.0 - 3.7) LA Diam: 2.8 cm (2.7 - 3.8) MV E Robe: 1.18 m/s MV DecT: 243 ms MV A Robe: 0.61 m/s MV E/A Ratio: 1.92 AV maxP.26 mmHg AV meanP.99 mmHg AR PHT: 512 ms RAP: 5.00 mmHg RVSP: 43.98 mmHg FINDINGS -------- Sinus rhythm. This was a technically adequate study. The left ventricular size is normal. There is mild concentric left ventricular hypertrophy. Overa ll left ventricular systolic function is normal with, an EF between 55 - 60 %. The right ventricle is normal in size and function. LA is midly dilated 29-33ml/m2. The right atrium is normal in size. There is moderate aortic valve sclerosis. There is kevj-wl-vxgwdjul aortic regurgitation. There i s moderate aortic stenosis present. Peak/mean gradient across the Aortic Valve is 52.26mmHg / 28.99 mmHg. The mitral valve leaflets are mildly thickened. Mild mitral regurgitation is present. Mild tricuspid regurgitation present. There is mild pulmonary hypertension. The right ventricular systolic pressure, as measured by Doppler, is 43.98mmHg. The pulmonic valve was not well visualized. There is no pulmonic regurgitation present. The aortic root size is normal. Normal inferior vena cava with normal inspiratory collapse consistent with estimated right atrial pre ssure of 5 mmHg. There is no pericardial effusion. CONCLUSIONS -------- 1. Sinus rhythm. 2. This was a technically adequate study. 3. The left ventricular size is normal. 4. There is mild concentric left ventricular hypertrophy. 5. Overall left ventricular systolic function is normal with, an EF between 55 - 60 %. 6. LA is midly dilated 29-33ml/m2. 7. There is moderate aortic valve sclerosis. 8. There is ltza-gb-rzzvzlqi aortic regurgitation. 9. There is moderate aortic stenosis present. 10. Peak/mean gradient across the Aortic Valve is 52.26mmHg / 28.99mmHg. 11. The mitral valve leaflets are mildly thickened. 12. Mild mitral regurgitation is present. 13. Mild tricuspid regurgitation present. 14. There is mild pulmonary hypertension. 15. The pulmonic valve was not well visualized. 16. There is no pulmonic regurgitation present. 17. The aortic root size is normal. 18. There is no pericardial effusion. GLASS BLOWER HELPER: Cong Cardoza RDCS
[2018-02-01 13:05] LABS: Large Platelets Present; Lymphocytes # (M) 0.94 k/uL (1.0-4.8); Myelocytes # (M) 0.04 k/uL (0); Myelocytes % 1 %; Neutrophils # (M) 2.77 k/uL (1.3-7.7); Neutrophils % (M) 71 %; Nucleated Red Blood Cells 0 /100 WBC (0-0); Poikilocytosis (M) Present; Polychromasia Present; Total Cells Counted 200
[2018-02-01 13:06] LABS: Platelet Count 98 k/uL (150-450)
[2018-02-01] MEDS: ATORVASTATIN 10 MG TAB PO SCH (20:11)
--- NOTE | 2018-02-01 22:49 | PN ---
PROGRESS NOTE DATE OF SERVICE: 02/01/2018 PRESENTING COMPLAINT: GI bleed. INTERVAL HISTORY: This patient is status post GI bleed, moved out of the ICU, status post EGD. He did have some black today. Overall feeling better. No abdominal pain. Less tired. REVIEW OF SYSTEMS: Done for constitutional, cardiovascular, GI, pulmonary; relevant findings as above. CURRENT MEDICATIONS: Reviewed. They include PPIs. PHYSICAL EXAMINATION: Temperature 97.4, pulse 54, respiration 16, blood pressure 126/58, pulse ox 98% on room air. GENERAL APPEARANCE: Sitting up, comfortable. EYES: Pupils equal. Conjunctivae pale. HEENT: External appearance of nose and ears normal. Oral cavity normal. NECK: JVD not raised. Mass not palpable. RESPIRATORY: Effort normal. LUNGS: Decreased breath sounds. CARDIOVASCULAR: First and second sounds normal. Soft ejection systolic murmur. ABDOMEN: Soft, non-tender. Liver and spleen not palpable. PSYCHIATRY: Alert and oriented x3. Mood and affect normal. INVESTIGATIONS: Hemoglobin 7.3. ASSESSMENT: 1. Acute severe anemia from gastrointestinal bleed secondary to non-steroidal anti- inflammatory drugs. 2. Multiple superficial ulcerations in the antrum of the stomach secondary to non- steroidal anti-inflammatory drugs and also patient has been on Plavix. 3. Essential hypertension. 4. Hyperlipidemia. 5. Primary osteoarthritis of multiple joints, bilateral. 6. Chronic nicotine dependence. Patient is an active cigarette smoker. 7. Chronic obstructive pulmonary disease in a current cigarette smoker. PLAN: Will repeat patient's hemoglobin tomorrow. Will discontinue the IV fluids. Care was discussed with the patient. MMODL / IJN: [id number] /
--- NOTE | 2018-02-01 23:46 | P.PN ---
Subjective Progress Note Date: 02/01/18 Principal diagnosis: Melena, anemia Lying in bed. No distress. Reports one dark bowel movement today. Tolerating liquids. Objective - Vital Signs Vital signs: Vital Signs Temp 98.2 F 02/01/18 21:00 Pulse 63 02/01/18 21:00 Resp 18 02/01/18 21:00 BP 130/58 02/01/18 21:00 Pulse Ox 98 02/01/18 21:00 Intake & Output 02/01/18 02/01/18 02/02/18 06:59 18:59 06:59 Intake Total 2195 1540 Output Total 800 Balance 1395 1540 Weight 75.2 kg Intake: IV 1100 500 Sodium Chloride 0.9% 1, 1100 500 000 ml @ 100 mls/hr IV . Q10H RHIANNA Rx#:[id number] Oral 1095 1040 Output: Urine 800 Other: Voiding Method Toilet Toilet # Voids 2 - Exam Constitutional: Lying in bed in no apparent distress Head: normocephalic/atraumatic Eyes: No icterus, no injection Mouth: Moist mucous membranes Nose: No discharge noted Neck: Trachea midline Lungs: Normal air entry in all lung tirado, no wheezing appreciated Abdomen: Soft, nontender, nondistended, normal bowel sounds. No guarding or rigidity Skin: No rashes, no jaundice Neuro: Awake alert and oriented 3, no focal deficits - Labs CBC & Chem 7: 02/01/18 07:39 02/01/18 07:39 Labs: Abnormal Lab Results - Last 24 Hours (Table) 02/01/18 02/01/18 Range/Units 07:39 07:39 RBC 2.27 L (4.30-5.90) m/uL Hgb 7.3 L (13.0-17.5) gm/dL Hct 22.4 L (39.0-53.0) % RDW 18.1 H (11.5-15.5) % Plt Count 98 L (150-450) k/uL Lymphocytes # (Manual) 0.94 L (1.0-4.8) k/uL Myelocytes # (Manual) 0.04 H (0) k/uL Sodium 133 L (137-145) mmol/L Assessment and Plan (1) Anemia associated with acute blood loss Narrative/Plan: Patient presenting with syncopal episode found to be anemic. Likely secondary to numerous mild superficial ulcerations of the antrum likely associated to patient's NSAID use. Current Visit: Yes Status: Acute Code(s): D62 - ACUTE POSTHEMORRHAGIC ANEMIA SNOMED Code(s): 105303750 (2) Gastrointestinal hemorrhage with melena Narrative/Plan: Patient reporting black tarry stools over the past few days. Secondary to above. Current Visit: Yes Status: Acute Code(s): K92.1 - MELENA SNOMED Code(s): 970385794 (3) History of gastroesophageal reflux (GERD) Narrative/Plan: On home therapy with Nexium OTC. Current Visit: Yes Status: Acute Code(s): Z87.19 - PERSONAL HISTORY OF OTHER DISEASES OF THE DIGESTIVE SYSTEM SNOMED Code(s): 35290677568532 Plan: Supportive care Diet advance to full liquids today Given findings of superficial antral ulcerations on EGD patient will need twice daily PPI therapy (omeprazole 20 mg or pantoprazole 40 mg) on discharge Avoid NSAID use Okay to resume Plavix tomorrow if hemoglobin stable Follow CBC serially, transfuse PRBCs as needed Follow up with gastroenterology in 2 weeks, repeat EGD to ensure healing of ulcerations in 6-8 weeks Thank you for allowing us to participate in the care of this patient, we will continue to follow.
[2018-02-02] MEDS ORDERED: MORPHINE ORAL SOLN 10 MG/5 ML CUP PO PRN (05:59)
[2018-02-02 07:25] VITALS: BP 131/58; RESP 14; TEMP 97.5
[2018-02-02 07:58] LABS: Anisocytosis Slight; Basophils % (A) 0 %; Eosinophils % (A) 1 %; HCT 24.2 % (39.0-53.0); Lymphocytes # (A) 1.1 k/uL (1.0-4.8); Lymphocytes % (A) 27 %; MCH 32.9 pg (25.0-35.0); MCHC 33.1 g/dL (31.0-37.0); MCV 99.5 fL (80.0-100.0); Macrocytosis Slight; Mean Platelet Volume 10.6; Monocytes # (A) 0.4 k/uL (0-1.0); Monocytes % (A) 9 %; Neutrophils # (A) 2.4 k/uL (1.3-7.7); Neutrophils % (A) 59 %; Platelet Count 113 k/uL (150-450); RBC 2.43 m/uL (4.30-5.90); WBC 4.1 k/uL (3.8-10.6)
[2018-02-02] MEDS: IPRATROPIUM-ALBUTEROL 3 ML NEB INHALATION SCH ×2 (08:00→13:55)
[2018-02-02 08:21] LABS: Anion Gap 5 mmol/L; Blood Urea Nitrogen 9 mg/dL (9-20); Calcium 8.7 mg/dL (8.4-10.2); Carbon Dioxide 26 mmol/L (22-30); Chloride 103 mmol/L (98-107); Glucose 91 mg/dL (74-99); Magnesium 1.5 mg/dL (1.6-2.3); Phosphorus 3.6 mg/dL (2.5-4.5); Potassium 4.3 mmol/L (3.5-5.1); Sodium 134 mmol/L (137-145)
[2018-02-02] MEDS: TAMSULOSIN 0.4 MG CAP.ER.24H PO SCH (08:48)
[2018-02-02] MEDS: ATENOLOL 50 MG TAB PO SCH (08:48)
[2018-02-02] MEDS: PANTOPRAZOLE 40 MG TABLET PO SCH (08:48)
[2018-02-02] MEDS: FINASTERIDE 5 MG TAB PO SCH (08:49)
[2018-02-02] MEDS: NICOTINE 21MG/24HR PATCH TRANSDERM SCH (08:49)
[2018-02-02] MEDS: MAGNESIUM SULFATE-D5W PMX 1 GM in DEXTROSE/WATER 1 100ML.BAG IVPB SCH ×2 (10:06→11:56)
--- NOTE | 2018-02-02 10:15 | P.PN ---
<Rhonda Diaz E - Last Filed: 02/02/18 10:12> Subjective Progress Note Date: 02/02/18 History of present illness: This is a 73-year-old male patient being seen examined and evaluated today on rounds. He came into the hospital yesterday after driving he felt dizzy and passed out in the passenger side of the car for approximately 2 minutes. The had to shake and rattle him see him to wake up and become alert again. He was then brought into the emergency room for further evaluation and workup. The patient was noted to have a hemoglobin of 5.5. Apparently the patient had been having dark stools for the past 3-4 days and had some mild achy abdominal pain. He states he does not have a history of bleeding. He is on Plavix per his primary care provider, which is he states is due to a bad valve, however he is unsure of which valve it is. The patient states he usually goes for yearly echoes. He has no history of PEs or DVTs in the past. Patient was given 2 units of packed red blood cells and did have an improvement in his hemoglobin to 8.3 today. The patient states he did have 1 small dark tarry stool overnight. CT of the brain was obtained and was negative for any acute hemorrhage or midline shift, he did have bilateral maxillary sinus disease. Patient does have a history of left-sided carotid stenosis surgery in the past. He states he is currently a one pack per day smoker for approximately 30 years. He denies any COPD asthma or home oxygen use. Denies any alcohol or drug use. Interval history: 02/01/2018patient being seen examined and evaluated today on rounds. He is resting up in bed on room air. The patient did undergo an EGD yesterday with GI services. Multiple superficial ulcerations possibly related to NSAID use were observed and biopsy. Patient also was noted to have some mild gastritis which was also biopsied. He did have 1 dark tarry stool yesterday. He has not had any bowel movements today. Carotid Doppler was negative for any stenosis, echocardiogram is pending. His hemoglobin today is 7.3. He was downgraded from the intensive care unit yesterday. He has been hemodynamically stable 02/02/2018 patient is being seen examined and evaluated today on rounds. He is resting up in bed on room air. CT is feeling at his baseline. He is asking when he'll go home. He did have 1 dark all movement overnight approximately 8 PM. He has been tolerating food and fluids quite well. His appetite is back to normal. His hemoglobin today is 8.0, his magnesium is noted to be 1.5 and is being replaced. He is hemodynamically stable, no further complaints. Objective - Vital Signs Vital signs: Vital Signs Temp 97.5 F L 02/02/18 07:23 Pulse 76 02/02/18 08:10 Resp 14 02/02/18 07:40 BP 131/58 02/02/18 07:23 Pulse Ox 95 02/02/18 04:45 Intake & Output 02/01/18 02/02/18 02/02/18 18:59 06:59 18:59 Intake Total 1540 720 Balance 1540 720 Weight 75.2 kg 75.2 kg Intake: IV 500 Sodium Chloride 0.9% 1, 500 000 ml @ 100 mls/hr IV . Q10H RHIANNA Rx#:[id number] Oral 1040 720 Other: Voiding Method Toilet Toilet # Voids 2 - Exam GENERAL EXAM: Alert, active, comfortable in no apparent distress, pale HEAD: Normocephalic. EYES: Normal reaction of pupils, equal size. NOSE: Clear with pink turbinates. THROAT: No erythema or exudates. NECK: No masses, no JVD. CHEST: No chest wall deformity. LUNGS: Equal air entry with no crackles, wheeze, rhonchi or dullness. CVS: S1 and S2 normal with no audible mumurs, regular rhythm. ABDOMEN: No hepatosplenomegaly, normal bowel sounds, no guarding or rigidity. EXTREMITIES: No edema noted, pedal pulses palpable. CENTRAL NERVOUS SYSTEM: No focal deficits, tone is normal in all 4 extremities. - Labs CBC & Chem 7: 02/02/18 07:38 02/02/18 07:38 Labs: Abnormal Lab Results - Last 24 Hours (Table) 02/01/18 02/02/18 02/02/18 Range/Units 07:39 07:38 07:38 RBC 2.27 L 2.43 L (4.30-5.90) m/uL Hgb 7.3 L 8.0 L (13.0-17.5) gm/dL Hct 22.4 L 24.2 L (39.0-53.0) % RDW 18.1 H 18.0 H (11.5-15.5) % Plt Count 98 L 113 L (150-450) k/uL Lymphocytes # (Manual) 0.94 L (1.0-4.8) k/uL Myelocytes # (Manual) 0.04 H (0) k/uL Sodium 134 L (137-145) mmol/L Magnesium 1.5 L (1.6-2.3) mg/dL Assessment and Plan Assessment: Assessment Syncopal episode Symptomatic anemia, acute blood loss, related to GI bleed Precipitous drop in hematocrit Sinusitis History of left carotid stenosis History of moderate aortic valve sclerosis History of mild to moderate aortic regurgitation History of hypertension Multiple superficial ulcerations and mild gastritis on EGD procedure Hypomagnesemia Plan 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 Continue with pulmonary hygiene, coughing and deep breathing exercises, and supportive care. Supplemental oxygen to maintain oxygen saturations of 92% or better in needed. GI and DVT prophylaxis. Protonix, early mobility and SCDs We will continue to monitor labs/results and adjust treatment as necessary. May for this consultation we will continue to follow this patient with you Further recommendations pending. I performed an examination of the patient and discussed their management with the nurse practitioner. I have reviewed the nurse practitioner's note and agree with the documented findings and plan of care. <Eneida Valdez - Last Filed: 02/02/18 13:08> Objective - Vital Signs Vital signs: Vital Signs Temp 97.5 F L 02/02/18 07:23 Pulse 76 02/02/18 08:10 Resp 14 02/02/18 08:00 BP 131/58 02/02/18 07:23 Pulse Ox 95 02/02/18 04:45 Intake & Output 02/01/18 02/02/18 02/02/18 18:59 06:59 18:59 Intake Total 1540 720 480 Balance 1540 720 480 Weight 75.2 kg 75.2 kg Intake: IV 500 Sodium Chloride 0.9% 1, 500 000 ml @ 100 mls/hr IV . Q10H RHIANNA Rx#:[id number] Oral 1040 720 480 Other: Voiding Method Toilet Toilet Toilet # Voids 2 2 - Labs CBC & Chem 7: 02/02/18 07:38 02/02/18 07:38 Labs: Abnormal Lab Results - Last 24 Hours (Table) 02/01/18 02/02/18 02/02/18 Range/Units 07:39 07:38 07:38 RBC 2.43 L (4.30-5.90) m/uL Hgb 8.0 L (13.0-17.5) gm/dL Hct 24.2 L (39.0-53.0) % RDW 18.0 H (11.5-15.5) % Plt Count 98 L 113 L (150-450) k/uL Lymphocytes # (Manual) 0.94 L (1.0-4.8) k/uL Myelocytes # (Manual) 0.04 H (0) k/uL Sodium 134 L (137-145) mmol/L Magnesium 1.5 L (1.6-2.3) mg/dL Assessment and Plan Assessment: Patient seen and examined. Patient states he is feeling good and would like to go home. Hemoglobin has been stable. He did have one dark stool overnight. He is tolerating his diet. Ok to DC from pulmonary standpoint. ~Eneida Valdez DO
[2018-02-02 15:08] VITALS: PULSE 62
--- NOTE | 2018-02-03 07:34 | DS ---
DISCHARGE SUMMARY DATE OF ADMISSION: 01/30/2018 DATE OF DISCHARGE: 02/02/2018 FINAL DIAGNOSES: 1. Acute severe anemia from gastrointestinal bleed secondary to nonsteroidal anti- inflammatory drugs. 2. Multiple superficial ulcerations/severe gastritis of the antrum stomach secondary to NSAIDs. 3. Essential hypertension. 4. Hyperlipidemia. 5. Primary osteoarthritis multiple joints bilateral. 6. Chronic nicotine dependence, patient is a cigarette smoker. 7. Chronic obstructive pulmonary disease in a current cigarette smoker. 8. Moderate aortic valve stenosis, nonrheumatic. HOSPITAL COURSE: This patient presented with a hemoglobin of 5.5, was having dark stools for 2 to 3 days at home. Patient has been taking Aleve and Plavix. The patient did receive a total of 2 units of blood. Hemoglobin is stable at 8. The patient did undergo EGD by Dr. Zamarripa. The patient was found to have multiple superficial ulcerations in the antrum. The patient is up and about, feeling much better. On the day of discharge, care was discussed in detail with the patient, his and daughter. Questions were answered. The patient told to resume Plavix in 5 days. On examination: ABDOMEN: Soft, nontender. CONSULTATION: Dr. Zamarripa from GI; Dr. Valdez from Critical Care. Additionally because patient had passed out, patient did have a carotid Doppler that was unremarkable. CT scan of the brain showed chronic changes and 2-D echocardiogram showed preserved LV function and moderate aortic valve sclerosis. DISCHARGE MEDICATIONS: 1. Tenormin 50 mg b.i.d. 2. Plavix 75 mg a day, start in 5 days. 3. Proscar 5 mg a day. 4. Zocor 20 mg at bedtime. 5. Flomax 0.4 mg p.o. daily. 6. Tylenol 650 mg q.4 p.r.n. 7. Ventolin HFA 1 or 2 puffs q.6 p.r.n. 8. Nexium 20 mg p.o. b.i.d. 9. Nicotine 21 mg patch. Follow up with Dr. Eneida Valdez on 02/04/2018; Dr. Chatman on 02/10/2018; Dr. Zamarripa on 02/25/2018 CBC on 02/08/2018. Discussion and discharge planning more than 35 minutes. MMODL / IJN: [id number] /
== END 2018-02-02 16:10 | disposition home or self-care (01) | DRG 378 ==
LOC: EC 13:47 → 6ICU 17:00 → 5MS5E 01-31 23:08
PROVIDERS: ADMIT Hospitalist; ATTEND Hospitalist
PROC: 30233N1 Transfusion of Nonautologous Red Blood Cells into Peripheral Vein, Percutaneous Approach (ICD-10-PCS; 2018-01-30)
PROC: 0DB78ZX Excision of Stomach, Pylorus, Via Natural or Artificial Opening Endoscopic, Diagnostic (ICD-10-PCS; principal; 2018-01-31 09:35)
DX: K25.4 Chronic or unspecified gastric ulcer with hemorrhage (principal); D62 Acute posthemorrhagic anemia; K29.70 Gastritis, unspecified, without bleeding; E78.5 Hyperlipidemia, unspecified; E83.42 Hypomagnesemia; F17.210 Nicotine dependence, cigarettes, uncomplicated; I10 Essential (primary) hypertension; I35.2 Nonrheumatic aortic (valve) stenosis with insufficiency; J44.9 Chronic obstructive pulmonary disease, unspecified; K21.9 Gastro-esophageal reflux disease without esophagitis; M47.9 Spondylosis, unspecified; M16.0 Bilateral primary osteoarthritis of hip; T39.395A Adverse effect of other nonsteroidal anti-inflammatory drugs [NSAID], initial encounter; Z79.02 Long term (current) use of antithrombotics/antiplatelets; Z79.899 Other long term (current) drug therapy; Z71.6 Tobacco abuse counseling; I65.22 Occlusion and stenosis of left carotid artery; Z86.010 Personal history of colon polyps; J32.9 Chronic sinusitis, unspecified
CPT/HCPCS: 36415; 43239; 70450; 71046; 80048; 80053; 81001; 82272; 82550; 82553; 83036; 83735; 84100; 84484; 85025; 85610; 85730; 86850; 86900; 86901; 86920; 88305; 88342; 93005; 93306; 93880; 94640; 96361; 96374; 99291

== ENCOUNTER → 2018-02-26 | Outpatient (CLI) | payer MEDICARE ==
[2018-02-26 11:42] LABS: Anisocytosis Slight; HCT 30.3 % (39.0-53.0); HGB 9.8 gm/dL (13.0-17.5); Hypochromasia Moderate; MCH 31.6 pg (25.0-35.0); MCHC 32.4 g/dL (31.0-37.0); MCV 97.6 fL (80.0-100.0); Macrocytosis Slight; RDW 16.1 % (11.5-15.5); WBC 5.1 k/uL (3.8-10.6)
[2018-02-26 12:30] LABS: Platelet Count 92 k/uL (150-450)
== END ==
LOC: LABWHC1 10:49
PROVIDERS: ATTEND Internal Medicine
DX: D50.0 Iron deficiency anemia secondary to blood loss (chronic) (principal)
CPT/HCPCS: 36415; 85027

== ENCOUNTER 2018-05-19 08:25 | Day surgery (SDC) | payer MEDICARE ==
[2018-05-16 17:33] VITALS: BMI 25.8
[~2018-05-19 08:25] MED LIST: LACTATED RINGERS 1,000 ML IV SCH; LIDOCAINE 1% 20 ML VIAL (10MG/ML) FOR IV START INTRADERMA PRN
[2018-05-19 08:54] VITALS: RESP 16; TEMP 96.6
[2018-05-19] MEDS ORDERED: LIDOCAINE 1% INJ 10MG/ML (20 ML MDV) ONE (09:28)
[2018-05-19] MEDS ORDERED: PROPOFOL 10 MG/ML 20 ML VIAL IV ONE (09:28)
[2018-05-19] MEDS ORDERED: GLYCOPYRROLATE 0.2 MG/ML 2 ML VIAL ONE (09:28)
[2018-05-19 11:07] VITALS: BP 139/61; PULSE 56
--- NOTE | 2018-05-19 11:36 | P.PCN ---
Date of Procedure: 05/19/18 Description of Procedure: Brief history: Patient is a pleasant 73-year-old male with a medical history significant for a large polyp found approximate 10 years ago for which the patient reports perforation during polypectomy and was sent to [facility], as well as a history of a recent upper GI bleed secondary to gastric ulcer who presents for outpatient evaluation with colonoscopy. The patient's last colonoscopy was approximately 10 years ago and he has had no subsequent colonoscopic evaluation. Procedure performed: Esophagogastroduodenoscopy with biopsy Colonoscopy with polypectomy, clip placement and biopsy Estimated blood loss: Minimal. Preoperative diagnosis: Anesthesia: MAC Procedure: After informed consent was obtained from the patient was brought into the endoscopy unit and IV sedation was administered by anesthesia under continuous monitoring. Initially upper endoscopy was done. The Olympus GF 190 video endoscope was inserted into the mouth and esophagus intubated without any difficulty and was gradually advanced into the stomach and duodenum and carefully examined. The bulb and second part of the duodenum appeared normal, with biopsies taken. The scope was then withdrawn into the stomach adequately insufflated with air and upon careful examination the antrum and body, cardia and fundus appeared normal except for some mild scattered erythema in the antrum and body which was biopsied. The scope was then withdrawn into the esophagus. Patient had a small hiatal hernia The GE junction appeared regular with no erythema erosions or ulcerations. Rest of the esophagus appeared normal. Patient tolerated the procedure well. At this time the patient continued to remain sedation. Initial digital rectal examination was normal. Olympus CF 190 video colonoscope was then inserted into the rectum and gradually advanced to the cecum without any difficulty. Careful examination was performed as the scope was gradually being withdrawn. The prep was excellent. The cecum, ascending colon, transverse colon, descending colon, sigmoid colon and rectum appeared grossly normal with the mild amount of small diverticula scattered in the sigmoid and descending colon. 1 cm ascending colon polyp was removed with hot snare with a clip placed for hemostasis. Retroflexion was performed in the rectum with a flat villous appearing polyp noted measuring approximately 1.5 -2 cm which was biopsied with cold forcep. Internal hemorrhoids were also noted. Patient tolerated the procedure well. Impression: 1. Mild gastritis of the antrum and body, biopsied. Hiatal hernia. Duodenal biopsies. 2. Mild scattered diverticulosis. Internal hemorrhoids. Ascending colonic polyp removed with hot snare with a clip placed for hemostasis. Flat villous appearing large rectal polyp biopsied. Recommendations: Findings of this examination were discussed with the patient as well as his . Await pathology. Okay to keep her PPI therapy as tolerated. Okay to restart a high-fiber diet. Patient will need repeat endoscopy for removal of the large rectal polyp, to be scheduled. Follow up with gastroenterology as previously scheduled.
== END 2018-05-19 12:00 | disposition home or self-care (01) ==
LOC: ORWHC2ENDO 08:25
PROVIDERS: ATTEND Internal Medicine
DX: Z12.11 Encounter for screening for malignant neoplasm of colon (principal); D12.2 Benign neoplasm of ascending colon; D12.8 Benign neoplasm of rectum; K29.50 Unspecified chronic gastritis without bleeding; K44.9 Diaphragmatic hernia without obstruction or gangrene; K57.30 Diverticulosis of large intestine without perforation or abscess without bleeding; K64.8 Other hemorrhoids; Z86.010 Personal history of colon polyps; E78.5 Hyperlipidemia, unspecified; I10 Essential (primary) hypertension; I65.22 Occlusion and stenosis of left carotid artery; N40.0 Benign prostatic hyperplasia without lower urinary tract symptoms; Z79.02 Long term (current) use of antithrombotics/antiplatelets; Z79.899 Other long term (current) drug therapy; Z90.49 Acquired absence of other specified parts of digestive tract; Z87.891 Personal history of nicotine dependence
CPT/HCPCS: 88305; 45380; 45385; 43239; J2001; J2704; 45382

== ENCOUNTER 2018-06-23 08:27 | Day surgery (SDC) | payer MEDICARE ==
[2018-06-21 11:17] VITALS: BMI 25.8
[2018-06-23 08:47] VITALS: TEMP 97.6
[2018-06-23] MEDS ORDERED: PROPOFOL 10 MG/ML 20 ML VIAL IV ONE (09:06)
--- NOTE | 2018-06-23 10:44 | P.PCN ---
Date of Procedure: 06/23/18 Description of Procedure: BRIEF HISTORY: Patient is a 73-year-old pleasant male patient who previously presented for screening colonoscopy colonic including a large rectal tubulovillous adenoma. At that time biopsies of adenoma did not show evidence of dysplasia. The patient was brought back for polypectomy. PROCEDURE PERFORMED: Flexible sigmoidoscopy with polypectomy and clip placement. PREOPERATIVE DIAGNOSIS: Rectal polyp. ESTIMATED BLOOD LOSS: Minimal. IV sedation per Anesthesia. PROCEDURE: After informed consent was obtained, the patient, was brought into the endoscopy unit. IV sedation was administered by Anesthesia under continuous monitoring. Digital rectal examination was normal. Initially the Olympus CF- 190 flexible video colonoscope was then inserted in the rectum. Prep was excellent. The previously seen rectal polyp was visualized. Saline lift was used to raise the polyp, and pieces of the polyp were then removed with a combination of both hot snare and cold snare polypectomy. A large amount of tissue was obtained, however the polyp was extremely friable and the polyp was not able to be completely resected. A clip was placed for hemostasis at a point polyp resection where oozing of blood could be seen, hemostasis was achieved. The patient tolerated the procedure well. IMPRESSION: Flexible sigmoidoscopy with piecemeal resection of a large rectal polyp with both hot and cold snare polypectomy, and clip placement for hemostasis. Pieces of the polyp remained at the end of the procedure. RECOMMENDATIONS: Findings of this examination were discussed with the patient and his . Await pathology from biopsies. Patient should follow-up in the clinic in the next 1-2 weeks. The patient will be referred to a colorectal surgeon for further intervention.
[2018-06-23 10:53] VITALS: BP 122/57; PULSE 67; RESP 18
== END 2018-06-23 11:44 | disposition home or self-care (01) ==
LOC: ORWHC2ENDO 08:27
PROVIDERS: ATTEND Internal Medicine
DX: D12.8 Benign neoplasm of rectum (principal); Z87.891 Personal history of nicotine dependence; I10 Essential (primary) hypertension; E78.5 Hyperlipidemia, unspecified; I38 Endocarditis, valve unspecified; N40.0 Benign prostatic hyperplasia without lower urinary tract symptoms; Z86.73 Personal history of transient ischemic attack (TIA), and cerebral infarction without residual deficits; M19.90 Unspecified osteoarthritis, unspecified site; I65.22 Occlusion and stenosis of left carotid artery; Z79.02 Long term (current) use of antithrombotics/antiplatelets; Z79.899 Other long term (current) drug therapy
CPT/HCPCS: 88305; 45338; J2704; 45334; 45335

== ENCOUNTER → 2018-07-08 | Outpatient (CLI) | payer MEDICARE ==
[2018-07-08 15:31] LABS: Anisocytosis Slight; Basophils % (A) 0 %; Eosinophils # (A) 0.1 k/uL (0-0.7); Eosinophils % (A) 2 %; HCT 26.4 % (39.0-53.0); HGB 8.6 gm/dL (13.0-17.5); Hypochromasia Slight; Lymphocytes # (A) 1.1 k/uL (1.0-4.8); Lymphocytes % (A) 37 %; MCHC 32.7 g/dL (31.0-37.0); Macrocytosis Moderate; Mean Platelet Volume 11.1; Monocytes # (A) 0.1 k/uL (0-1.0); Monocytes % (A) 4 %; Neutrophils # (A) 1.6 k/uL (1.3-7.7); Neutrophils % (A) 53 %; RBC 2.62 m/uL (4.30-5.90); RDW 19.1 % (11.5-15.5)
[2018-07-08 15:33] LABS: Platelet Count 79 k/uL (150-450)
== END | disposition home or self-care (01) ==
LOC: LABWHC1 13:30
PROVIDERS: ATTEND Internal Medicine
DX: K25.3 Acute gastric ulcer without hemorrhage or perforation (principal)
CPT/HCPCS: 36415; 85025

== ENCOUNTER → 2018-08-02 | Outpatient (CLI) | payer MEDICARE ==
--- NOTE | 2018-08-02 11:19 | US ---
EXAMINATION TYPE: US abdomen complete DATE OF EXAM: 08/02/2018 COMPARISON: None CLINICAL HISTORY: D61.818 pancytopenia. GB removed x 40 years ago, abn labs EXAM MEASUREMENTS: Liver Length: 12.9 cm CHD: 0.6 cm Spleen: 9.3 cm Right Kidney: 9.7 x 4.9 x 4.9 cm Left Kidney: 9.4 x 4.8 x 4.8 cm Pancreas: Body and tail not well visualized Liver: Echogenic focus seen with shadow - 0.6 x 0.5 cm Gallbladder: Surgically absent Evidence for sonographic Villagran's sign: neg CBD: Obscured by overlying bowel gas CHD: wnl Spleen: wnl Right Kidney: Prominent pyramids visualized Left Kidney: wnl Upper IVC: wnl Abd Aorta: Proximal portion not well visualized, no AAA visualized The visualized liver is slightly heterogeneous. Technologist marked shadowing 5 mm focus likely refle cting benign calcification. No suspicious intrahepatic mass or ductal dilatation is seen. The intrahe patic portion of the IVC and visualized mid and distal abdominal aorta are within normal limits. Gall bladder is surgically absent. Visualized portion of Common hepatic duct is upper limits of normal. T he pancreas is not well seen on images saved secondary to shadowing from overlying bowel gas. The sp wm is unremarkable. Kidneys are symmetric and free of hydronephrosis. No renal lesions are seen. IMPRESSION: Normal size spleen and liver. No suspicious acute findings seen.
== END ==
LOC: RADUSWWP 10:39
PROVIDERS: ATTEND Internal Medicine Hematology & Oncology
DX: D61.818 Other pancytopenia (principal)
CPT/HCPCS: 76700

== ENCOUNTER 2018-08-13 16:04 | Emergency (ER) | payer MEDICARE ==
[2018-08-13] MEDS ORDERED: OXYMETAZOLINE 0.05% NASL SPRAY 1 SPRAY BOTTLE NASAL STA (17:18)
--- NOTE | 2018-08-13 17:22 | ED ---
ENT HPI - General Chief complaint: ENT Stated complaint: Nosebleed since 7am Time Seen by Provider: 08/13/18 17:03 Source: patient Mode of arrival: ambulatory Limitations: no limitations - History of Present Illness Initial comments: 73-year-old male patient presents to the emergency department today for evaluation of epistaxis. Patient states he has had left-sided nasal bleeding since 30 this morning. Patient states that he has been holding pressure and attempt to get the bleeding to stop was unsuccessful. Patient states that he has been evaluated recently by hematology for anemia and low platelets. Patient does take Plavix but did not take his dosage today. Patient denies any new or worsening dizziness or weakness. Denies any headache or facial pain. Denies any trauma to the nose. Patient denies any recent rash, fever, chills, shortness breath, chest pain, abdominal pain, nausea, vomiting, diarrhea, constipation, back pain, numbness, tingling, dizziness, weakness, hematuria, dysuria, urinary urgency, urinary frequency, headache, visual changes, or any other complaints. - Related Data Home Medications Medication Instructions Recorded Confirmed Atenolol [Tenormin] 50 mg PO BID 03/26/16 05/19/18 Clopidogrel Bisulfate [Plavix] 75 mg PO DAILY 03/26/16 05/16/18 Finasteride [Proscar] 5 mg PO DAILY 03/26/16 05/16/18 Simvastatin [Zocor] 20 mg PO HS 03/26/16 05/16/18 Tamsulosin [Flomax] 0.4 mg PO DAILY 03/26/16 05/16/18 Previous Rx's Medication Instructions Recorded Acetaminophen Tab [Tylenol] 650 mg PO Q4HR PRN tab 02/02/18 Albuterol Inhaler [Ventolin Hfa 1 - 2 puff INHALATION RT-Q6H PRN 02/02/18 Inhaler] #1 inhaler Esomeprazole Magnesium [NexIUM] 20 mg PO BID #60 capsule. 02/02/18 Allergies Allergy/AdvReac Type Severity Reaction Status Date / Time No Known Allergies Allergy Verified 08/13/18 16:15 Review of Systems ROS Statement: Those systems with pertinent positive or pertinent negative responses have been documented in the HPI. ROS Other: All systems not noted in ROS Statement are negative. Past Medical History Past Medical History: Hyperlipidemia, Hypertension, Osteoarthritis (OA), Syncope Additional Past Medical History / Comment(s): bad heart valve, left sided carotid stenosis History of Any Multi-Drug Resistant Organisms: None Reported Past Surgical History: Appendectomy, Cholecystectomy Additional Past Surgical History / Comment(s): COLONOSCOPY/EGD Past Anesthesia/Blood Transfusion Reactions: No Reported Reaction Past Psychological History: No Psychological Hx Reported Smoking Status: Current every day smoker Past Alcohol Use History: None Reported Past Drug Use History: None Reported - Past Family History Mother Family Medical History: No Reported History General Exam Limitations: no limitations General appearance: alert, in no apparent distress, other (Physical well- developed, well-nourished adult male patient in no acute distress. Vital signs upon presentation are pulse 78, respirations 18, blood pressure 126/54, pulse ox 98% on room air.) Eye exam: Present: normal appearance, PERRL, EOMI. Absent: scleral icterus, conjunctival injection, periorbital swelling ENT exam: Present: normal exam, normal oropharynx, mucous membranes moist, other (There is evidence of bleeding to the left nare) Respiratory exam: Present: normal lung sounds bilaterally. Absent: respiratory distress, wheezes, rales, rhonchi, stridor Cardiovascular Exam: Present: regular rate, normal rhythm, normal heart sounds. Absent: systolic murmur, diastolic murmur, rubs, gallop, clicks Neurological exam: Present: alert, oriented X3, CN II-XII intact Skin exam: Present: warm, dry, intact, pallor. Absent: rash Course Vital Signs 08/13/18 08/13/18 08/13/18 16:13 18:52 20:00 Pulse Rate 78 67 62 Respiratory 18 18 18 Rate Blood Pressure 126/54 141/58 169/59 O2 Sat by Pulse 98 100 100 Oximetry 08/13/18 21:04 Pulse Rate 60 Respiratory 16 Rate Blood Pressure 133/49 O2 Sat by Pulse 100 Oximetry Medical Decision Making - Medical Decision Making 73-year-old male patient currently being evaluated for pancytopenia presents to the emergency department today for evaluation of left sided nasal bleeding. Patient has had nosebleeds since 01 03 he was unable to get it to stop at home. Physical examination does reveal active bleeding from the left nare. We did draw a CBC, compared to when stays draw labs are stable. Patient does take Rian vix, he did skip today's dose. We initially attempted blowing out all clots, and instillation of Afrin, and holding pressure for 20 minutes. Bleeding continued after this, but did slow considerably. I did identify area of bleeding and attempted to cauterize with silver nitrate stick. Patient had cessation of bleeding for a short period but then it restarted. I did discuss options with the patient, he declined nasal packing. We attempted instillation of Afrin once again with direct pressure. This did provide cessation of bleeding. We did monitor patient for 45 minutes to an hour he had no return of bleeding. He was given dose of his blood pressure medication as his blood pressure was elevated. 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 He is instructed to obtain [id number] nasal saline and to obtain humidifier as he does use a wood stove at home. He is instructed on his primary care physician for recheck in 1-2 days. Return parameters were discussed in detail. He verbalizes understanding and agrees with this plan. - Lab Data Result diagrams: 08/13/18 17:43 Lab Results 08/13/18 08/13/18 Range/Units 17:43 17:43 WBC 2.1 L (3.8-10.6) k/uL RBC 2.58 L (4.30-5.90) m/uL Hgb 8.5 L (13.0-17.5) gm/dL Hct 26.3 L (39.0-53.0) % MCV 101.9 H (80.0-100.0) fL MCH 32.8 (25.0-35.0) pg MCHC 32.2 (31.0-37.0) g/dL RDW 17.8 H (11.5-15.5) % Plt Count 75 L (150-450) k/uL Hypochromasia Slight Anisocytosis Slight Macrocytosis Moderate PT 10.8 (9.0-12.0) sec INR 1.0 (<1.2) APTT 25.3 (22.0-30.0) sec Disposition Clinical Impression: Epistaxis Disposition: HOME SELF-CARE Condition: Good Instructions (If sedation given, give patient instructions): Nosebleed (ED) Additional Instructions: Obtain over the counter nasal saline, do two sprays to both nostrils twice daily. Consider using a humidifier especially when sleeping. Follow up with your gauge machine operator for further evaluation. Follow up with Ears, nose, and throat specialist as needed. Return to the emergency department immediately for any new, worsening, or concerning symptoms. Is patient prescribed a controlled substance at d/c from ED?: No Referrals: Kendall Chatman DO [Primary Care Provider] - 1-2 days Jhon Aldridge MD [STAFF PHYSICIAN] - 1-2 days Time of Disposition: 20:39
[2018-08-13 17:52] LABS: Anisocytosis Slight; HCT 26.3 % (39.0-53.0); HGB 8.5 gm/dL (13.0-17.5); Hypochromasia Slight; MCH 32.8 pg (25.0-35.0); MCHC 32.2 g/dL (31.0-37.0); MCV 101.9 fL (80.0-100.0); Macrocytosis Moderate; Mean Platelet Volume 13.2; RBC 2.58 m/uL (4.30-5.90); RDW 17.8 % (11.5-15.5); WBC 2.1 k/uL (3.8-10.6)
[2018-08-13 18:02] LABS: Platelet Count 75 k/uL (150-450)
[2018-08-13 18:04] LABS: Partial Thromboplastin Time 25.3 sec (22.0-30.0); Prothrombin Time 10.8 sec (9.0-12.0)
[2018-08-13] MEDS ORDERED: SILVER NITRATE APPLICATOR 1 EACH STICK..EA. TOPICAL STA (18:27)
[2018-08-13] MEDS ORDERED: LIDOCAINE 1% INJ 10MG/ML (20 ML MDV) SQ ONE (18:31)
[2018-08-13] MEDS ORDERED: TRANEXAMIC ACID 1,000 MG/10 ML VIAL MISCELLANE ONE (19:45)
[2018-08-13] MEDS ORDERED: ATENOLOL 50 MG TAB PO STA (19:59)
[2018-08-13 21:06] VITALS: BP 133/49; PULSE 60; RESP 16
== END 2018-08-13 21:06 | disposition home or self-care (01) ==
LOC: EC 16:04
DX: R04.0 Epistaxis (principal); I10 Essential (primary) hypertension; E78.5 Hyperlipidemia, unspecified; F17.200 Nicotine dependence, unspecified, uncomplicated; Z53.29 Procedure and treatment not carried out because of patient's decision for other reasons; Z79.02 Long term (current) use of antithrombotics/antiplatelets; Z79.899 Other long term (current) drug therapy
CPT/HCPCS: 36415; 85027; 85610; 85730; 99283; 30901; J2001

== ENCOUNTER 2018-08-14 10:51 | Emergency (ER) | payer MEDICARE ==
[2018-08-14 11:02] VITALS: PULSE 67; RESP 18; TEMP 97.9
[2018-08-14] MEDS ORDERED: OXYMETAZOLINE 0.05% NASL SPRAY 1 SPRAY BOTTLE NASAL STA (11:23)
--- NOTE | 2018-08-14 12:05 | ED ---
ENT HPI - General Chief complaint: ENT Stated complaint: nose bleed-revisit Time Seen by Provider: 08/14/18 11:22 Source: patient Mode of arrival: ambulatory Limitations: no limitations - History of Present Illness Initial comments: 73-year-old male with past medical history of chronic anemia and thrombocytopenia on Plavix presenting today for chief complaint of left nostril nosebleed. Patient states that a 30 a.m. yesterday he began to develop a nose bleed out of the left nostril. Patient denies any trauma. Patient denies any headache nausea vomiting diarrhea melena or hematochezia. Patient states that he present to the emergency department around 4:30 PM, with a area was cauterized, and bleeding had subsided upon discharge. However when patient arrived at car and began to slowly dripped blood again. Patient states he just went home, attempted to apply pressure and use Afrin-however patient states bleeding persisted through the night and into this morning. Bleeding was still occurring this morning patient presented for evaluation. 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 Patient states he has had iron infusions, however no specific diagnosis. Patient states he has held his Lasix to Plavix doses due to the bleeding. Upon arrival patient has tissue stuck in left n ostril. Vital signs within acceptable limits. Remaining review of systems negative, patient denies any recent fever, chills, shortness of breath, chest pain, back pain, abdominal pain, nausea or vomiting, numbness or tingling, dysuria or hematuria, constipation or diarrhea, headaches or visual changes, or any other complaints. HR WNL. - Related Data Home Medications Medication Instructions Recorded Confirmed Atenolol [Tenormin] 50 mg PO BID 03/26/16 05/19/18 Clopidogrel Bisulfate [Plavix] 75 mg PO DAILY 03/26/16 05/16/18 Finasteride [Proscar] 5 mg PO DAILY 03/26/16 05/16/18 Simvastatin [Zocor] 20 mg PO HS 03/26/16 05/16/18 Tamsulosin [Flomax] 0.4 mg PO DAILY 03/26/16 05/16/18 Previous Rx's Medication Instructions Recorded Acetaminophen Tab [Tylenol] 650 mg PO Q4HR PRN tab 02/02/18 Albuterol Inhaler [Ventolin Hfa 1 - 2 puff INHALATION RT-Q6H PRN 02/02/18 Inhaler] #1 inhaler Esomeprazole Magnesium [NexIUM] 20 mg PO BID #60 capsule. 02/02/18 Amoxicillin 875 mg PO Q12HR 5 Days #10 tablet 08/14/18 Allergies Allergy/AdvReac Type Severity Reaction Status Date / Time No Known Allergies Allergy Verified 08/14/18 11:02 Review of Systems ROS Statement: Those systems with pertinent positive or pertinent negative responses have been documented in the HPI. ROS Other: All systems not noted in ROS Statement are negative. Past Medical History Past Medical History: Hyperlipidemia, Hypertension, Osteoarthritis (OA), Syncope Additional Past Medical History / Comment(s): bad heart valve, left sided carotid stenosis History of Any Multi-Drug Resistant Organisms: None Reported Past Surgical History: Appendectomy, Cholecystectomy Additional Past Surgical History / Comment(s): COLONOSCOPY/EGD Past Anesthesia/Blood Transfusion Reactions: No Reported Reaction Past Psychological History: No Psychological Hx Reported Smoking Status: Current every day smoker Past Alcohol Use History: None Reported Past Drug Use History: None Reported - Past Family History Mother Family Medical History: No Reported History General Exam - General Exam Comments Initial Comments: General: The patient is awake and alert, in no distress, and does not appear acutely ill. Eye: Pupils are equal, round and reactive to light, extra-ocular movements are intact. No nystagmus. There is normal conjunctiva bilaterally. No signs of icterus. Ears, nose, mouth and throat: There are moist mucous membranes and no oral lesions. Oropharynx reveals no findings consistent with posterior epistaxis. Upon examination of the anterior nasal cavity there is no evidence of active ble eding site. There is previous cauterized area. No active bleeding. Pt blew clot of of nose prior to exam. No septal hematoma/deviation. Neck: The neck is supple, there is no tenderness or JVD. Cardiovascular: There is a regular rate and rhythm. No murmur, rub or gallop is appreciated. Respiratory: Lungs are clear to auscultation, respirations are non-labored, breath sounds are equal. No wheezes, stridor, rales, or rhonchi. Gastrointestinal: Soft, non-distended, non-tender abdomen without masses or organomegaly noted. There is no rebound or guarding present. Musculoskeletal: Normal ROM, no tenderness. Strength 5/5. Sensation intact. Radial pulses equal bilaterally 2+. Neurological: A&O x 3. CN II-XII intact, There are no obvious motor or sensory deficits. Coordination appears grossly intact. Speech is normal. Skin: Skin is warm and dry and no rashes or lesions are noted. Psychiatric: Cooperative, appropriate mood & affect, normal judgment. Limitations: no limitations Course Vital Signs 08/14/18 08/14/18 10:59 13:00 Temperature 97.9 F Pulse Rate 67 Respiratory 18 18 Rate Blood Pressure 125/50 173/56 O2 Sat by Pulse 100 100 Oximetry Medical Decision Making - Medical Decision Making 73yo presenting for epistaxis. There is no evidence of posterior bleeding. No blood in the oropharynx. Blood was coming from left nares per patient. Patient has no active bleeding upon arrival, blew clots from left nostril. Patient's hemoglobin remained stable. Blood pressure within acceptable limits. Platelets remains chronically low. There is no acute changes and laboratory studies. Pancytopenia. Patient follows hematology Dr. Balderas who is aware of all laboratory findings. Patient held plavix x 2 doses. Patient was anteriorly packed in the left nare. Started on ppx antibiotics, and instructed to follow-up with ENT within the next 1-2 days to remove packing. Patient understands that packing is not to be in for longer than 48 hours. He understood the importance of prophylactic antibiotics. She will return parameters deny questions this time. Patient appears well. Hemodynamically stable. Patient discharged stable condition after discussing the case with his provider Dr. Moe. - Lab Data Result diagrams: 08/14/18 12:15 08/14/18 12:15 Lab Results 08/14/18 08/14/18 Range/Units 12:15 12:15 WBC 3.4 L (3.8-10.6) k/uL RBC 2.60 L (4.30-5.90) m/uL Hgb 8.7 L (13.0-17.5) gm/dL Hct 26.3 L (39.0-53.0) % MCV 100.9 H (80.0-100.0) fL MCH 33.3 (25.0-35.0) pg MCHC 33.0 (31.0-37.0) g/dL RDW 18.6 H (11.5-15.5) % Plt Count 79 L (150-450) k/uL Neutrophils % 68 % Lymphocytes % 24 % Monocytes % 5 % Eosinophils % 1 % Basophils % 0 % Neutrophils # 2.3 (1.3-7.7) k/uL Lymphocytes # 0.8 L (1.0-4.8) k/uL Monocytes # 0.2 (0-1.0) k/uL Eosinophils # 0.0 (0-0.7) k/uL Basophils # 0.0 (0-0.2) k/uL Manual Slide Review Performed Large Platelets Present Hypochromasia Slight Anisocytosis Slight Macrocytosis Moderate Sodium 140 (137-145) mmol/L Potassium 4.1 (3.5-5.1) mmol/L Chloride 106 (98-107) mmol/L Carbon Dioxide 27 (22-30) mmol/L Anion Gap 7 mmol/L BUN 23 H (9-20) mg/dL Creatinine 1.21 (0.66-1.25) mg/dL Est GFR (CKD-EPI)AfAm 69 (>60 ml/min/1.73 sqM) Est GFR (CKD-EPI)NonAf 60 (>60 ml/min/1.73 sqM) Glucose 107 H (74-99) mg/dL Calcium 10.0 (8.4-10.2) mg/dL Total Bilirubin 0.5 (0.2-1.3) mg/dL AST 29 (17-59) U/L ALT 27 (21-72) U/L Alkaline Phosphatase 90 (38-126) U/L Total Protein 7.5 (6.3-8.2) g/dL Albumin 4.4 (3.5-5.0) g/dL Disposition Clinical Impression: Anterior epistaxis, Thrombocytopenia, Chronic anemia Disposition: HOME SELF-CARE Condition: Good Instructions (If sedation given, give patient instructions): Nosebleed (ED) Additional Instructions: Please use medication as discussed. Please follow-up with ENT in 1-2 days for packing removal. Please removing packing in 48 hours preferably by ENT. Please return to emergency room if the symptoms increase or worsen or for any other concerns. Prescriptions: Amoxicillin 875 mg PO Q12HR 5 Days #10 tablet Is patient prescribed a controlled substance at d/c from ED?: No Referrals: Kendall Chatman DO [Primary Care Provider] - 1-2 days Time of Disposition: 13:10
[2018-08-14] MEDS ORDERED: SODIUM CHLORIDE 0.9% 1,000 ML IV ONE (12:23)
[2018-08-14 12:43] LABS: Albumin 4.4 g/dL (3.5-5.0); Potassium 4.1 mmol/L (3.5-5.1); Total Bilirubin 0.5 mg/dL (0.2-1.3); Total Protein 7.5 g/dL (6.3-8.2)
[2018-08-14 12:50] LABS: Anisocytosis Slight; Basophils % (A) 0 %; Eosinophils % (A) 1 %; HCT 26.3 % (39.0-53.0); HGB 8.7 gm/dL (13.0-17.5); Hypochromasia Slight; Lymphocytes # (A) 0.8 k/uL (1.0-4.8); Lymphocytes % (A) 24 %; MCH 33.3 pg (25.0-35.0); MCV 100.9 fL (80.0-100.0); Macrocytosis Moderate; Mean Platelet Volume 12.2; Monocytes # (A) 0.2 k/uL (0-1.0); Monocytes % (A) 5 %; Neutrophils # (A) 2.3 k/uL (1.3-7.7); Neutrophils % (A) 68 %; RDW 18.6 % (11.5-15.5); WBC 3.4 k/uL (3.8-10.6)
[2018-08-14 12:55] LABS: Large Platelets Present
[2018-08-14 12:56] LABS: Platelet Count 79 k/uL (150-450)
[2018-08-14 13:25] VITALS: BP 173/56
== END 2018-08-14 13:37 | disposition home or self-care (01) ==
LOC: EC 10:51
DX: R04.0 Epistaxis (principal); D69.6 Thrombocytopenia, unspecified; D53.9 Nutritional anemia, unspecified; D61.818 Other pancytopenia; E78.5 Hyperlipidemia, unspecified; I10 Essential (primary) hypertension; F17.200 Nicotine dependence, unspecified, uncomplicated; Z79.02 Long term (current) use of antithrombotics/antiplatelets; Z79.899 Other long term (current) drug therapy; Z86.79 Personal history of other diseases of the circulatory system
CPT/HCPCS: 30901; 36415; 80053; 85025; 99283

== ENCOUNTER 2018-08-16 10:26 | Emergency (ER) | payer MEDICARE ==
[2018-08-16 10:31] VITALS: RESP 18
--- NOTE | 2018-08-16 11:34 | ED ---
General Adult HPI - General Chief complaint: ENT Stated complaint: NEEDS NASAL PACKING REMOVED Time Seen by Provider: 08/16/18 11:01 Source: patient, RN notes reviewed Mode of arrival: ambulatory Limitations: no limitations - History of Present Illness Initial comments: 73-year-old male with a past medical history of hyperlipidemia, hypertension, murmur, carotid stenosis presents to the emergency department for nasal bleed. Patient also has chronic anemia. Patient had left-sided nasal bleeding occurring 3 days ago. He had went home after bleeding was stopped in the emergency department and had a rebleed. Patient returned for nasal packing. Patient did try to follow-up with his ENT but was unable to get an appointment so return here for nasal packing removal today. Patient states he has not been taking his Plavix and would like to ask his primary care provider if he needs to continue this before restarting it. Patient has been taking the antibiotic. Patient has no other complete at this time.Patient has no other complaints at this time including shortness of breath, chest pain, abdominal pain, nausea or vomiting, headache, or visual changes. - Related Data Home Medications Medication Instructions Recorded Confirmed Atenolol [Tenormin] 50 mg PO BID 03/26/16 08/16/18 Clopidogrel Bisulfate [Plavix] 75 mg PO DAILY 03/26/16 08/16/18 Finasteride [Proscar] 5 mg PO DAILY 03/26/16 08/16/18 Simvastatin [Zocor] 20 mg PO HS 03/26/16 08/16/18 Tamsulosin [Flomax] 0.4 mg PO BID 03/26/16 08/16/18 Losartan-Hctz 50-12.5 mg [Hyzaar 1 tab PO DAILY 08/16/18 08/16/18 50-12.5] Meloxicam 15 mg PO DAILY 08/16/18 08/16/18 Previous Rx's Medication Instructions Recorded Acetaminophen Tab [Tylenol] 650 mg PO Q4HR PRN tab 02/02/18 Albuterol Inhaler [Ventolin Hfa 1 - 2 puff INHALATION RT-Q6H PRN 02/02/18 Inhaler] #1 inhaler Esomeprazole Magnesium [NexIUM] 20 mg PO BID #60 capsule. 02/02/18 Amoxicillin 875 mg PO Q12HR 5 Days #10 tablet 03/10/19 Allergies Allergy/AdvReac Type Severity Reaction Status Date / Time No Known Allergies Allergy Verified 08/16/18 11:21 Review of Systems ROS Statement: Those systems with pertinent positive or pertinent negative responses have been documented in the HPI. ROS Other: All systems not noted in ROS Statement are negative. Past Medical History Past Medical History: Hyperlipidemia, Hypertension, Osteoarthritis (OA), Syncope Additional Past Medical History / Comment(s): bad heart valve, left sided carotid stenosis History of Any Multi-Drug Resistant Organisms: None Reported Past Surgical History: Appendectomy, Cholecystectomy Additional Past Surgical History / Comment(s): COLONOSCOPY/EGD Past Anesthesia/Blood Transfusion Reactions: No Reported Reaction Past Psychological History: No Psychological Hx Reported Smoking Status: Current every day smoker Past Alcohol Use History: None Reported Past Drug Use History: None Reported - Past Family History Mother Family Medical History: No Reported History General Exam Limitations: no limitations General appearance: alert, in no apparent distress Head exam: Present: atraumatic, normocephalic, normal inspection Eye exam: Present: normal appearance, PERRL, EOMI. Absent: scleral icterus, conjunctival injection, periorbital swelling ENT exam: Present: normal oropharynx, TM's normal bilaterally, normal external ear exam, other (Muricel Nasal packing present in the left naris.) Neck exam: Present: normal inspection, full ROM. Absent: tenderness, meningismus, lymphadenopathy Respiratory exam: Present: normal lung sounds bilaterally. Absent: respiratory distress, wheezes, rales, rhonchi, stridor Cardiovascular Exam: Present: regular rate, normal rhythm, normal heart sounds. Absent: systolic murmur, diastolic murmur, rubs, gallop, clicks Neurological exam: Present: alert, oriented X3, CN II-XII intact Psychiatric exam: Present: normal affect, normal mood Course Vital Signs 08/16/18 10:29 Temperature 97.9 F Pulse Rate 66 Respiratory 18 Rate Blood Pressure 131/68 O2 Sat by Pulse 99 Oximetry Medical Decision Making - Medical Decision Making 73-year-old male presents to the emergency department for removal of nasal packing. This has been in for 2 days. Nasal packing was removed without difficulty. No rebleed occurred. Patient is hemodynamically stable. He is well-appearing. Patient does take Plavix but has ceased to the use of this for the past 4 days. Patient states he would like to talk to his primary care provider before continuing this. I did recommend he call today to speak with him. Patient is eager to go home. Discussed following up with ENT and returning here feels any worsening symptoms or rebleed. Disposition Clinical Impression: Encounter for removal of nasal packing Disposition: HOME SELF-CARE Condition: Good Instructions (If sedation given, give patient instructions): Nosebleed (ED) Additional Instructions: Call your doctor to talk about Plavix. Please follow up with ENT in 1-2 days. If you have any worsening symptoms or bleeding recurs return to the emergency department. Is patient prescribed a controlled substance at d/c from ED?: No Referrals: Kendall Chatman DO [Primary Care Provider] - 1-2 days Wiley Castillo DO [Doctor of Osteopathic Medicine] - 1-2 days Time of Disposition: 11:33
[2018-08-16 12:04] VITALS: BP 120/38; PULSE 60; TEMP 97.8
== END 2018-08-16 12:03 | disposition home or self-care (01) ==
LOC: EC 10:26
DX: Z48.00 Encounter for change or removal of nonsurgical wound dressing (principal); D53.9 Nutritional anemia, unspecified; E78.5 Hyperlipidemia, unspecified; I10 Essential (primary) hypertension; M19.90 Unspecified osteoarthritis, unspecified site; F17.200 Nicotine dependence, unspecified, uncomplicated; Z79.1 Long term (current) use of non-steroidal anti-inflammatories (NSAID); Z79.899 Other long term (current) drug therapy
CPT/HCPCS: 99281

== ENCOUNTER 2018-09-03 14:00 | Inpatient (IN) | payer MEDICARE ==
[2018-09-03] MEDS ORDERED: SODIUM CHLORIDE 0.9% 1,000 ML IV STA (14:22)
[2018-09-03] MEDS ORDERED: PANTOPRAZOLE 40 MG/10 ML VIAL IVP STA (14:22)
--- NOTE | 2018-09-03 14:28 | ED ---
General Adult HPI - General Chief complaint: GI Bleed Stated complaint: blood in stool/weakness Time Seen by Provider: 09/03/18 14:09 Source: patient, family, RN notes reviewed Mode of arrival: ambulatory Limitations: no limitations - History of Present Illness Initial comments: Patient is a pleasant 73-year-old male presenting to the emergency department with concerns regarding GI hemorrhage. Patient was discharged from the hospital 5 days ago. Patient was told there was a area of hemorrhaging Stomach. Patient states they believe to resolved when he was discharged. Patient did follow-up with his primary care physician 2 days ago and repeat he moglobin was at 7.8, the same when he was discharged. Patient denies any abdominal pain. Patient has continued black stools. Patient continually is feeling lightheaded and dizzy. Patient has generalized fatigue. - Related Data Home Medications Medication Instructions Recorded Confirmed Atenolol [Tenormin] 50 mg PO BID 03/26/16 09/03/18 Finasteride [Proscar] 5 mg PO DAILY 03/26/16 09/03/18 Simvastatin [Zocor] 20 mg PO HS 03/26/16 09/03/18 Tamsulosin [Flomax] 0.4 mg PO BID 03/26/16 09/03/18 Losartan-Hctz 50-12.5 mg [Hyzaar 1 tab PO DAILY 08/16/18 09/03/18 50-12.5] Previous Rx's Medication Instructions Recorded Acetaminophen Tab [Tylenol] 650 mg PO Q4HR PRN tab 02/02/18 Albuterol Inhaler [Ventolin Hfa 1 - 2 puff INHALATION RT-Q6H PRN 02/02/18 Inhaler] #1 inhaler Esomeprazole Magnesium [NexIUM] 20 mg PO BID #60 capsule. 02/02/18 Allergies Allergy/AdvReac Type Severity Reaction Status Date / Time No Known Allergies Allergy Verified 09/03/18 14:13 Review of Systems ROS Statement: Those systems with pertinent positive or pertinent negative responses have been documented in the HPI. ROS Other: All systems not noted in ROS Statement are negative. Constitutional: Denies: fever Eyes: Denies: eye pain ENT: Denies: ear pain Respiratory: Denies: cough Cardiovascular: Denies: chest pain Endocrine: Reports: fatigue Gastrointestinal: Reports: melena. Denies: abdominal pain Genitourinary: Denies: dysuria Musculoskeletal: Denies: back pain Skin: Denies: rash Neurological: Denies: headache Past Medical History Past Medical History: Hyperlipidemia, Hypertension, Osteoarthritis (OA), Syncope Additional Past Medical History / Comment(s): anemia, bad heart valve, left sided carotid stenosis History of Any Multi-Drug Resistant Organisms: None Reported Past Surgical History: Appendectomy, Cholecystectomy Additional Past Surgical History / Comment(s): COLONOSCOPY/EGD Past Anesthesia/Blood Transfusion Reactions: No Reported Reaction Additional Past Anesthesia/Blood Transfusion Reaction / Comment(s): Pt has received blood in past without reaction. Past Psychological History: No Psychological Hx Reported Smoking Status: Current every day smoker Past Alcohol Use History: None Reported Past Drug Use History: None Reported - Past Family History Mother Family Medical History: No Reported History Additional Family Medical History / Comment(s): Mother of cancerous cordoma in her spine at the age of 63 yrs. Father Family Medical History: Dementia Additional Family Medical History / Comment(s): Father lived to be 83 yrs old. General Exam Limitations: no limitations General appearance: alert, in no apparent distress Head exam: Present: atraumatic Eye exam: Present: normal appearance, PERRL ENT exam: Present: normal oropharynx Neck exam: Present: normal inspection Respiratory exam: Present: normal lung sounds bilaterally Cardiovascular Exam: Present: regular rate, normal rhythm GI/Abdominal exam: Present: soft. Absent: distended, tenderness Extremities exam: Present: normal inspection Neurological exam: Present: alert Psychiatric exam: Present: normal affect, normal mood Skin exam: Present: normal color Course Vital Signs 09/03/18 14:03 Temperature 98.2 F Pulse Rate 84 Respiratory 16 Rate Blood Pressure 94/51 O2 Sat by Pulse 100 Oximetry Medical Decision Making - Medical Decision Making Patient reevaluated and updated. Case was discussed with Dr. Obregon, who will admit patient that was recently discharged from [facility]. He agrees with one unit of packed red cells and GI consult. - Lab Data Result diagrams: 09/03/18 14:37 Lab Results 09/03/18 Range/Units 14:37 WBC 2.8 L (3.8-10.6) k/uL RBC 1.95 L (4.30-5.90) m/uL Hgb 6.6 L* (13.0-17.5) gm/dL Hct 20.2 L (39.0-53.0) % MCV 103.8 H (80.0-100.0) fL MCH 33.9 (25.0-35.0) pg MCHC 32.6 (31.0-37.0) g/dL RDW 26.4 H (11.5-15.5) % Disposition Clinical Impression: GI bleed Disposition: ADMITTED IP TO THIS HOSP Is patient prescribed a controlled substance at d/c from ED?: No Referrals: Kendall Chatman DO [Primary Care Provider] - 1-2 days Decision Time: 15:04
[2018-09-03 14:53] LABS: Anisocytosis Marked; Basophils % (A) 0 %; Eosinophils # (A) 0.1 k/uL (0-0.7); Eosinophils % (A) 3 %; HCT 20.2 % (39.0-53.0); Hypochromasia Slight; Lymphocytes # (A) 0.6 k/uL (1.0-4.8); Lymphocytes % (A) 21 %; MCH 33.9 pg (25.0-35.0); MCHC 32.6 g/dL (31.0-37.0); MCV 103.8 fL (80.0-100.0); Macrocytosis Marked; Monocytes # (A) 0.1 k/uL (0-1.0); Monocytes % (A) 5 %; Neutrophils # (A) 1.9 k/uL (1.3-7.7); Neutrophils % (A) 69 %; Platelet Count 150 k/uL (150-450); RBC 1.95 m/uL (4.30-5.90); WBC 2.8 k/uL (3.8-10.6)
[2018-09-03 14:56] LABS: HGB 6.6 gm/dL (13.0-17.5); RDW 26.4 % (11.5-15.5)
[2018-09-03] MEDS ORDERED: NALOXONE 0.4 MG/ML 1 ML VIAL IV PRN (15:00)
[2018-09-03 15:05] LABS: Albumin 3.5 g/dL (3.5-5.0); Calcium 9.1 mg/dL (8.4-10.2); Potassium 3.9 mmol/L (3.5-5.1); Total Bilirubin 0.3 mg/dL (0.2-1.3); Total Protein 5.8 g/dL (6.3-8.2)
[2018-09-03 15:12] LABS: Prothrombin Time 10.6 sec (9.0-12.0)
[2018-09-03 15:14] LABS: Large Platelets Present; Mixed Population RBC Present; Poikilocytosis (M) Present; Polychromasia Present
[2018-09-03] MEDS ORDERED: ALBUTEROL NEBULIZED 2.5 MG/3 ML INHALATION PRN (17:08)
--- NOTE | 2018-09-03 17:13 | P.HPIM ---
History of Present Illness H&P Date: 09/03/18 The patient is a 73-year-old male with a PMH of hypertension, hyperlipidemia, carotid stenosis, syncope, and anemia presents to the ED with complaints of melanotic stools. The patient was recently discharged on 08/29/2018 from [facility] when he was admitted for acute lower GI bleed. 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 The patient's bleeding had stabilized and he was discharged with plans of push enteroscopy if he had another episode of GI bleeding. The patient now reports that he noticed an episode of black tarry stool yesterday and then had another episode 3 hours prior to presentation. He reports only having these 2 bowel movements and has otherwise not noted any bright red blood per rectum. He also reports feeling fatigued but denied abdominal pain, nausea, vomiting, fever, chills, chest pain, shortness of breath. The patient underwent extensive evaluation in the emergency room, with WBC count 2.8, hemoglobin 6.6, platelets 150, BUNs 38, and creatinine 1.33. 1 unit of PRBCs was ordered and it GI consult was placed. The patient was subsequently admitted to the medicine service for further management. Review of Systems Pertinent positives and negatives as discussed in HPI, a complete review of systems was performed and all other systems are negative. Past Medical History Past Medical History: Hyperlipidemia, Hypertension, Osteoarthritis (OA), Syncope Additional Past Medical History / Comment(s): anemia, bad heart valve, left sided carotid stenosis History of Any Multi-Drug Resistant Organisms: None Reported Past Surgical History: Appendectomy, Cholecystectomy Additional Past Surgical History / Comment(s): COLONOSCOPY/EGD Past Anesthesia/Blood Transfusion Reactions: No Reported Reaction Additional Past Anesthesia/Blood Transfusion Reaction / Comment(s): Pt has re ceived blood in past without reaction. Past Psychological History: No Psychological Hx Reported Smoking Status: Current every day smoker Past Alcohol Use History: None Reported Past Drug Use History: None Reported - Past Family History Mother Family Medical History: No Reported History Additional Family Medical History / Comment(s): Mother of cancerous cordoma in her spine at the age of 63 yrs. Father Family Medical History: Dementia Additional Family Medical History / Comment(s): Father lived to be 83 yrs old. Medications and Allergies Home Medications Medication Instructions Recorded Confirmed Type Atenolol [Tenormin] 50 mg PO BID 03/26/16 09/03/18 History Finasteride [Proscar] 5 mg PO DAILY 03/26/16 09/03/18 History Simvastatin [Zocor] 20 mg PO HS 03/26/16 09/03/18 History Tamsulosin [Flomax] 0.4 mg PO BID 03/26/16 09/03/18 History Acetaminophen Tab [Tylenol] 650 mg PO Q4HR PRN tab 02/02/18 09/03/18 Rx Albuterol Inhaler [Ventolin Hfa 1 - 2 puff INHALATION RT-Q6H PRN 02/02/18 Rx Inhaler] #1 inhaler Esomeprazole Magnesium [NexIUM] 20 mg PO BID #60 capsule. 02/02/18 09/03/18 Rx Losartan-Hctz 50-12.5 mg [Hyzaar 1 tab PO DAILY 08/16/18 09/03/18 History 50-12.5] Allergies Allergy/AdvReac Type Severity Reaction Status Date / Time No Known Allergies Allergy Verified 09/03/18 14:13 Physical Exam Vitals: Vital Signs Temp Pulse Resp BP Pulse Ox 09/03/18 15:50 98.2 F 63 4 L 107/51 100 09/03/18 15:30 63 4 L 107/51 09/03/18 15:00 70 0 L 98/47 100 09/03/18 14:54 98/47 99 09/03/18 14:03 98.2 F 84 16 94/51 100 Intake and Output 09/03/18 09/03/18 09/03/18 06:59 14:59 22:59 Other: Weight 70.307 kg General: non toxic, no distress, appears at stated age, normal weight Derm: no unusual rashes/lesions no unusual ecchymoses, warm, dry, pale Head: atraumatic, normocephalic, symmetric Eyes: EOMI, no lid lag, anicteric sclera, pupils equal round reactive to light, pale conjunctiva ENT: Nose and ears atraumatic, no thrush, no pharyngeal erythema Neck: No thyromegaly, no cervical lymphadenopathy, trachea midline, supple Mouth: no lip lesion, mucus membranes moist Cardiovascular: S1S2 reg, no murmur, positive posterior tibial pulse bilateral, no edema, capillary refill less than 2 seconds Lungs: CTA bilateral, no rhonchi, no rales , no accessory muscle use Abdominal: soft, nontender to palpation, no guarding, no appreciable organomegaly, normal bowel sounds Ext: no gross muscle atrophy, muscle strength 5 out of 5 in all 4 extremities grossly, no contractures, Neuro: CN II-XI grossly intact, light touch intact all 4 extremities, finger to nose within normal limits, Psych: Alert, oriented, appropriate affect Results CBC & Chem 7: 09/03/18 14:37 09/03/18 14:40 Labs: Abnormal Lab Results - Last 24 Hours (Table) 09/03/18 09/03/18 09/03/18 Range/Units 14:33 14:33 14:37 WBC 2.8 L (3.8-10.6) k/uL RBC 1.95 L (4.30-5.90) m/uL Hgb 6.6 L* (13.0-17.5) gm/dL Hct 20.2 L (39.0-53.0) % MCV 103.8 H (80.0-100.0) fL RDW 26.4 H (11.5-15.5) % Lymphocytes # 0.6 L (1.0-4.8) k/uL APTT 21.0 L (22.0-30.0) sec Chloride (98-107) mmol/L BUN (9-20) mg/dL Creatinine (0.66-1.25) mg/dL Glucose (74-99) mg/dL ALT (21-72) U/L Total Protein (6.3-8.2) g/dL Crossmatch See Detail 09/03/18 Range/Units 14:40 WBC (3.8-10.6) k/uL RBC (4.30-5.90) m/uL Hgb (13.0-17.5) gm/dL Hct (39.0-53.0) % MCV (80.0-100.0) fL RDW (11.5-15.5) % Lymphocytes # (1.0-4.8) k/uL APTT (22.0-30.0) sec Chloride 109 H (98-107) mmol/L BUN 38 H (9-20) mg/dL Creatinine 1.33 H (0.66-1.25) mg/dL Glucose 136 H (74-99) mg/dL ALT 20 L (21-72) U/L Total Protein 5.8 L (6.3-8.2) g/dL Crossmatch Assessment and Plan Plan: Acute lower GI bleeding, noted to have AVM on Pill endoscopy on previous admission -GI consult -1 unit PRBCs ordered -Continue with IV fluids -Continue with Protonix IV -Follow CBC daily 8 hourly TI -Likely secondary to hypertension due to active bleeding -BUN disproportionately increased likely due to GI bleeding -IV fluids -Monitor BMP Hypertension -Hold medications in setting of active bleeding Hyperlipidemia -Resume Zocor DVT//GI prophylaxis -Contraindicated due to active bleeding -Protonix The patient is admitted with an anticipated greater than 2 midnight stay for evaluation of active GI bleeding. CODE STATUS:Full Code Discussed with: Patient Anticipated discharge date: 09/05/[address]: Home A total of 35 minutes was spent on the care of this complex patient more than 50% of the time was spent in counseling and care coordination.
[2018-09-03] MEDS: SODIUM CHLORIDE 0.9% 1,000 ML IV SCH (19:41)
[2018-09-03] MEDS: ATORVASTATIN 10 MG TAB PO SCH (20:05)
[2018-09-03 21:59] LABS: Anisocytosis Marked; Hypochromasia Marked; MCH 31.2 pg (25.0-35.0); MCHC 31.8 g/dL (31.0-37.0); Macrocytosis Marked; Mean Platelet Volume 13.1; Platelet Count 104 k/uL (150-450); RBC 1.94 m/uL (4.30-5.90); WBC 2.4 k/uL (3.8-10.6)
[2018-09-03 22:08] LABS: RDW 27.8 % (11.5-15.5)
[2018-09-03 22:09] LABS: MCV 98.1 fL (80.0-100.0)
[2018-09-03 22:23] LABS: Eosinophils # (M) 0.05 k/uL (0-0.7); Lymphocytes # (M) 0.65 k/uL (1.0-4.8); Monocytes # (M) 0.12 k/uL (0-1.0); Neutrophils # (M) 1.58 k/uL (1.3-7.7); Neutrophils % (M) 66 %; Nucleated Red Blood Cells 0 /100 WBC (0-0); Poikilocytosis (M) Present; Total Cells Counted 100
[2018-09-04 07:01] LABS: Anisocytosis Marked; Basophils % (A) 0 %; Eosinophils % (A) 2 %; HCT 24.1 % (39.0-53.0); Hypochromasia Slight; Lymphocytes # (A) 1.1 k/uL (1.0-4.8); Lymphocytes % (A) 42 %; MCH 30.1 pg (25.0-35.0); MCHC 32.8 g/dL (31.0-37.0); Macrocytosis Moderate; Mean Platelet Volume 12.7; Monocytes # (A) 0.1 k/uL (0-1.0); Monocytes % (A) 3 %; Neutrophils # (A) 1.4 k/uL (1.3-7.7); Neutrophils % (A) 52 %; RBC 2.62 m/uL (4.30-5.90); WBC 2.6 k/uL (3.8-10.6)
[2018-09-04 07:08] LABS: Calcium 8.4 mg/dL (8.4-10.2); Potassium 3.8 mmol/L (3.5-5.1)
[2018-09-04 07:26] LABS: RDW 27.8 % (11.5-15.5)
[2018-09-04 07:27] LABS: HGB 7.9 gm/dL (13.0-17.5); MCV 91.8 fL (80.0-100.0)
[2018-09-04 07:30] LABS: Ovalocytes Present; Platelet Count 87 k/uL (150-450); Poikilocytosis (M) Present
[2018-09-04] MEDS ORDERED: ACETAMINOPHEN TAB 325 MG TAB PO PRN (07:51)
[2018-09-04] MEDS ORDERED: NALOXONE 0.4 MG/ML 1 ML VIAL IV PRN (07:51)
[2018-09-04] MEDS ORDERED: MELATONIN 3 MG TABLET PO PRN (07:51)
--- NOTE | 2018-09-04 10:12 | P.PN ---
Subjective Progress Note Date: 09/04/18 Principal diagnosis: dark stool Patient is a 73-year-old male past medical history of hypertension, dyslipidemia, BPH, and known GI bleed secondary to AVM. Patient was recently hospitalized last week due to a GI bleed requiring multiple transfusions. He had a negative EGD, prior had had a negative colonoscopy, and subsequently underwent a PillCam which showed an AVM with stigmata of bleeding. Plan was for discharge home with possible push enteroscopy should he rebleed. His hemoglobin decreased despite 1 unit of packed red blood cells and he was subsequently tr ansfused an additional 2 units of packed red blood cells. Patient seen and examined at bedside. He has had one dark bowel movement since coming to the hospital. No nausea, vomiting, chest pain, or shortness of breath. He was having some lightheadedness and dizziness as well as generalized malaise at presentation but this has resolved with blood transfusions. An echocardiogram january of 2018 which showed a normal EF as well as moderate aortic stenosis. Objective - Vital Signs Vital signs: Vital Signs Temp 98.2 F 09/04/18 08:00 Pulse 61 09/04/18 08:00 Resp 18 09/04/18 08:00 BP 116/50 09/04/18 08:00 Pulse Ox 96 09/04/18 08:00 Intake & Output 09/03/18 09/04/18 09/04/18 18:59 06:59 18:59 Intake Total 0 2360 180 Output Total 100 100 Balance 0 2260 80 Weight 70.307 kg 69 kg Intake: Intake, IV Titration 200 Amount Sodium Chloride 0.9% 1, 100 000 ml @ 100 mls/hr IV . Q10H STA Rx#:[id number] Sodium Chloride 0.9% 1, 100 000 ml @ 50 mls/hr IV . Q20H RHIANNA Rx#:[id number] Oral 300 180 Blood Product 0 1860 Rc As-1 Unit 310 [id number] Rc As-1 Unit 0 310 [id number] Rc As-1 Unit 310 [id number] Output: Stool 100 100 Other: # Voids 3 1 # Bowel Movements 1 - Exam General: ill appearing, pale, no distress, appears at stated age Derm:pale warm, dry Head: atraumatic, normocephalic, symmetric Eyes: EOMI, no lid lag, anicteric sclera Mouth: no lip lesion, mucus membranes moist Cardiovascular: S1S2 reg, Grade III systolic murmur, positive posterior tibial pulse bilateral, Lungs: CTA bilateral, no rhonchi, no rales , no accessory muscle use Abdominal: soft, nontender to palpation, no guarding, no appreciable organomegaly Ext: no gross muscle atrophy, no edema, no contractures Neuro: CN II-XI grossly intact, no focal neuro deficits Psych: Alert, oriented, appropriate affect - Labs CBC & Chem 7: 09/04/18 06:15 09/04/18 06:15 Labs: Abnormal Lab Results - Last 24 Hours (Table) 09/03/18 09/03/18 09/03/18 Range/Units 14:33 14:33 14:37 WBC 2.8 L (3.8-10.6) k/uL RBC 1.95 L (4.30-5.90) m/uL Hgb 6.6 L* (13.0-17.5) gm/dL Hct 20.2 L (39.0-53.0) % MCV 103.8 H (80.0-100.0) fL RDW 26.4 H (11.5-15.5) % Plt Count (150-450) k/uL Lymphocytes # 0.6 L (1.0-4.8) k/uL Lymphocytes # (Manual) (1.0-4.8) k/uL APTT 21.0 L (22.0-30.0) sec Chloride (98-107) mmol/L BUN (9-20) mg/dL Creatinine (0.66-1.25) mg/dL Glucose (74-99) mg/dL ALT (21-72) U/L Total Protein (6.3-8.2) g/dL Crossmatch See Detail 09/03/18 09/03/18 09/04/18 Range/Units 14:40 21:12 06:15 WBC 2.4 L (3.8-10.6) k/uL RBC 1.94 L (4.30-5.90) m/uL Hgb 6.0 L* (13.0-17.5) gm/dL Hct 19.0 L* (39.0-53.0) % MCV (80.0-100.0) fL RDW 27.8 H (11.5-15.5) % Plt Count 104 L (150-450) k/uL Lymphocytes # (1.0-4.8) k/uL Lymphocytes # (Manual) 0.65 L (1.0-4.8) k/uL APTT (22.0-30.0) sec Chloride 109 H 110 H (98-107) mmol/L BUN 38 H 36 H (9-20) mg/dL Creatinine 1.33 H 1.28 H (0.66-1.25) mg/dL Glucose 136 H (74-99) mg/dL ALT 20 L (21-72) U/L Total Protein 5.8 L (6.3-8.2) g/dL Crossmatch 09/04/18 Range/Units 06:15 WBC 2.6 L (3.8-10.6) k/uL RBC 2.62 L (4.30-5.90) m/uL Hgb 7.9 L D (13.0-17.5) gm/dL Hct 24.1 L (39.0-53.0) % MCV (80.0-100.0) fL RDW 27.8 H (11.5-15.5) % Plt Count 87 L (150-450) k/uL Lymphocytes # (1.0-4.8) k/uL Lymphocytes # (Manual) (1.0-4.8) k/uL APTT (22.0-30.0) sec Chloride (98-107) mmol/L BUN (9-20) mg/dL Creatinine (0.66-1.25) mg/dL Glucose (74-99) mg/dL ALT (21-72) U/L Total Protein (6.3-8.2) g/dL Crossmatch Assessment and Plan Assessment: GI bleed secondary to AVM, acute blood loss anemia -Status post 3 units packed red blood cells -Await GI recommendations -Clear liquid diet -IV PPI -Follow serial CBCs Dizziness -Likely secondary to hypovolemia however patient has known moderate aortic stenosis repeat echocardiogram -Follow telemetry Pancytopenia-leukopenia, anemia, and thrombocytopenia -Follows with Dr. Balderas in the clinic, history of MGUS -Follow CBC -If thrombocytopenia worsens would consider inpatient oncology consult Ataxia secondary to hypovolemia -ARB on hold -IV fluids -Repeat basic metabolic profile in a.m. Continue with Flomax and Proscar Hypertension, now slightly hypotensive -Blood pressure medications on hold -Follow blood pressures -IV fluids Dyslipidemia -Statin therapy DVT prophylaxis: SCDs Discussed with: Patient, nursing Anticipated discharge: 2-[address]: Home A total of 35 minutes was spent on the care of this complex patient more than 50% of the time was spent in counseling and care coordination.
[2018-09-04] MEDS: PANTOPRAZOLE 40 MG/10 ML VIAL IV SCH (11:25)
[2018-09-04] MEDS: SODIUM CHLORIDE 0.9% 1,000 ML IV SCH (11:26)
[2018-09-04] MEDS: FINASTERIDE 5 MG TAB PO SCH (11:28)
[2018-09-04] MEDS: TAMSULOSIN 0.4 MG CAP.ER.24H PO SCH ×2 (11:28→20:35)
--- NOTE | 2018-09-04 11:58 | HP ---
HISTORY AND PHYSICAL DATE OF SERVICE: September 04, 2018. REQUESTING PHYSICIAN: Dr. Kendall Chatman. REASON FOR CONSULTATION: Recurrent anemia and black tarry stools. HISTORY OF PRESENT ILLNESS: The patient is a 73-year-old pleasant white male admitted to hospital because of black tarry stools for the last 2 days duration. Came to the emergency room and was noted to have a hemoglobin of 6.6 requiring 2 units of blood transfusion. The patient has been having recurrent anemia and GI bleed since January of 2018. He presented with melena in January, an upper endoscopy done by Dr. Zamarripa and was diagnosed with duodenal ulcer. He was readmitted in May of 2018, at which time he had an upper endoscopy as well as colonoscopy performed. Upper endoscopy revealed completely healed duodenal ulcer with mild gastritis and colonoscopy revealed a large polyp in the rectum that could not be completely removed. He had repeat resurveillance flexible sigmoidoscopy in June 2018 and a residual polyp was partially removed. He was referred to a colorectal surgeon. In the meantime, the patient was readmitted to the hospital again 10 days ago with black tarry stools. He underwent an upper endoscopy again on August 26, 2018, which showed gastritis but no active upper gastrointestinal bleed. 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 The plan was to do a enteroscopy if he has continued to have a recurrent bleeding. In the meantime the patient home a week ago. He is readmitted again with a hemoglobin of 6.3, and black tarry stools for the last 2 days duration. He denies any abdominal pain. No nausea or vomiting. No recent NSAID use. PAST MEDICAL HISTORY: Significant for recurrent GI bleed since January of 2018, colon polyps, hypertension, hyperlipidemia, degenerative joint disease. PAST SURGICAL HISTORY: Appendectomy, cholecystectomy, multiple EGDs in the last 6 months, colonoscopy as mentioned above. MEDICATIONS: At home include: Tenormin, Proscar, Zocor, Tylenol, Ventolin, Nexium, Hyzaar, Albuterol. ALLERGIES: None. SOCIAL HISTORY: No smoking or alcohol use. FAMILY HISTORY: Mother had some spine cancerous condition. Father had dementia. REVIEW OF SYSTEMS: Cardiopulmonary: No chest pain, shortness of breath. GENITOURINARY: No dysuria or hematuria. Musculoskeletal unremarkable. Skin unremarkable. Endocrine unremarkable. Psychiatric unremarkable. Neurology unremarkable. ENT/vision unremarkable. Constitutional: No recent weight loss. No fever, chills, night sweats. PHYSICAL EXAMINATION: Appears comfortable in no apparent distress. Vital signs stable. Blood pressure is 103/46, pulse rate 56. Temperature . HEENT examination unremarkable. Conjunctivae pink. Sclerae anicteric. Oral cavity no lesions. Neck no jugular venous distention or lymph node enlargement. Chest was clear to auscultation. HEART: Regular rate and rhythm. ABDOMEN: Soft. Bowel sounds are positive. No organomegaly. Extremities: No pedal edema. Skin no rashes. NEUROLOGIC: Alert and oriented x3. No focal deficits. LAB DATA: Done at the time of admission hospital hemoglobin was 6.6, received 2 units of blood. This morning is 7.9, WBC 2.6, and platelets are 87,000. PT/INR is within normal limits. BUN 36, creatinine 1.23. Stool occult blood was positive. IMPRESSION: 1. Obscure gastrointestinal bleed since January of 2018 and upper endoscopy in January of 2018 that showed a duodenal ulcer. Repeat upper endoscopy and colonoscopy in May of 2018 revealed heal duodenal ulcer but large rectal polyp that was partially removed. Flexible sigmoidoscopy in June of 2018 showed residual polyp that could not be completely removed and referred to a colorectal surgeon, which patient has not seen to date. August 26, 2018, admitted again had an upper endoscopy that was unremarkable, followed by a small bowel capsule endoscopy that showed active oozing in the mid small bowel, possibly AVM. Now presents with black tarry stools of 2 days and recurrent anemia. Received 2 units of blood transfusion for hemoglobin of 6. He is doing well currently. 2. Mild pancytopenia, rule out bone marrow pathology. RECOMMENDATION: We will schedule him for an EGD/small bowel enteroscopy tomorrow. I discussed with the patient, risks, benefits and complications of the procedure. He is agreeable to it. Thank you for this consultation. MMODL / IJN: [id number] /
[2018-09-04 14:52] LABS: Anisocytosis Marked; Basophils % (A) 0 %; Eosinophils # (A) 0.1 k/uL (0-0.7); Eosinophils % (A) 2 %; HCT 22.3 % (39.0-53.0); HGB 7.4 gm/dL (13.0-17.5); Lymphocytes # (A) 0.8 k/uL (1.0-4.8); Lymphocytes % (A) 29 %; MCH 29.8 pg (25.0-35.0); MCHC 33.1 g/dL (31.0-37.0); MCV 89.8 fL (80.0-100.0); Macrocytosis Moderate; Monocytes # (A) 0.1 k/uL (0-1.0); Monocytes % (A) 4 %; Neutrophils # (A) 1.7 k/uL (1.3-7.7); Neutrophils % (A) 62 %; Poikilocytosis Slight; RBC 2.48 m/uL (4.30-5.90); WBC 2.7 k/uL (3.8-10.6)
[2018-09-04 14:55] LABS: RDW 27.7 % (11.5-15.5)
[2018-09-04 15:16] LABS: Hypochromasia (M) Present; Mixed Population RBC Present; Polychromasia Present
[2018-09-04 15:17] LABS: Platelet Count 97 k/uL (150-450)
[2018-09-04] MEDS: ATORVASTATIN 10 MG TAB PO SCH (20:35)
[2018-09-04 21:17] LABS: Anisocytosis Marked; Basophils % (A) 0 %; Eosinophils % (A) 2 %; HCT 22.6 % (39.0-53.0); HGB 7.2 gm/dL (13.0-17.5); Lymphocytes % (A) 46 %; MCH 28.9 pg (25.0-35.0); MCHC 31.9 g/dL (31.0-37.0); MCV 90.6 fL (80.0-100.0); Macrocytosis Moderate; Mean Platelet Volume 12.9; Monocytes # (A) 0.1 k/uL (0-1.0); Monocytes % (A) 4 %; Neutrophils % (A) 46 %; RBC 2.49 m/uL (4.30-5.90); WBC 2.1 k/uL (3.8-10.6)
[2018-09-04 21:18] LABS: Platelet Count 92 k/uL (150-450); RDW 26.8 % (11.5-15.5)
[2018-09-05] MEDS: SODIUM CHLORIDE 0.9% 1,000 ML IV SCH ×2 (06:27→12:31)
[2018-09-05 07:14] LABS: Anisocytosis Marked; MCH 31.1 pg (25.0-35.0); MCHC 34.1 g/dL (31.0-37.0); MCV 91.3 fL (80.0-100.0); Macrocytosis Moderate; Mean Platelet Volume 12.7; RBC 2.07 m/uL (4.30-5.90)
[2018-09-05 07:15] LABS: Calcium 8.2 mg/dL (8.4-10.2); Potassium 3.7 mmol/L (3.5-5.1)
[2018-09-05 07:20] LABS: HCT 18.9 % (39.0-53.0); HGB 6.5 gm/dL (13.0-17.5)
[2018-09-05] MEDS ORDERED: Potassium Replacement Protocol 1 EACH MISC MISCELLANE PRN (07:54)
[2018-09-05] MEDS: FINASTERIDE 5 MG TAB PO SCH (08:04)
[2018-09-05] MEDS: PANTOPRAZOLE 40 MG/10 ML VIAL IV SCH (08:04)
[2018-09-05] MEDS: TAMSULOSIN 0.4 MG CAP.ER.24H PO SCH ×2 (08:04→20:49)
[2018-09-05] MEDS: POTASSIUM CHLORIDE 10 MEQ in WATER FOR INJECTION 1 100ML.BAG IVPB SCH ×2 (08:10→09:44)
[2018-09-05 10:29] LABS: Platelet Count 99 k/uL (150-450)
--- NOTE | 2018-09-05 10:50 | ECHOF ---
Referral Reason:murmur MEASUREMENTS -------- HEIGHT: 170.2 cm WEIGHT: 68.9 kg BP: 114/73 RVIDd: 3.3 cm (< 3.3) IVSd: 1.3 cm (0.6 - 1.1) LVIDd: 4.2 cm (3.9 - 5.3) LVPWd: 1.2 cm (0.6 - 1.1) IVSs: 1.5 cm LVIDs: 3.5 cm LVPWs: 1.3 cm LA Diam: 4.5 cm (2.7 - 3.8) LAESV Index (A-L): 32.34 ml/m Ao Diam: 2.6 cm (2.0 - 3.7) LA Diam: 4.8 cm (2.7 - 3.8) MV EXCURSION: 18.048 mm (> 18.000) MV EF SLOPE: 70 mm/s (70 - 150) EPSS: 0.5 cm MV E Robe: 1.02 m/s MV DecT: 194 ms MV A Robe: 0.85 m/s MV E/A Ratio: 1.20 AV maxP.44 mmHg AV meanP.82 mmHg AR PHT: 445 ms RAP: 5.00 mmHg RVSP: 27.65 mmHg FINDINGS -------- Sinus rhythm. This was a technically adequate study. The left ventricular size is normal. There is mild concentric left ventricular hypertrophy. Overa ll left ventricular systolic function is normal with, an EF between 55 - 60 %. The right ventricle is normal in size. The left atrium is mildly dilated. LA is midly dilated 29-33ml/m2. The right atrial size is normal. There is mild aortic regurgitation. There is eyvbmnxd-pt-ypuqke aortic stenosis present. Peak/luke n gradient across the Aortic Valve is 60.44mmHg / 34.82mmHg. Mild mitral annular calcification present. Mild mitral regurgitation is present. Mild tricuspid regurgitation present. There is no evidence of pulmonary hypertension. The right v entricular systolic pressure, as measured by Doppler, is 27.65mmHg. There is no pulmonic regurgitation present. The aortic root size is normal. There is no pericardial effusion. CONCLUSIONS -------- 1. The left ventricular size is normal. 2. There is mild concentric left ventricular hypertrophy. 3. Overall left ventricular systolic function is normal with, an EF between 55 - 60 %. 4. The right ventricle is normal in size. 5. The left atrium is mildly dilated. 6. LA is midly dilated 29-33ml/m2. 7. The right atrial size is normal. 8. There is mild aortic regurgitation. 9. There is hexepfgr-rr-wqppov aortic stenosis present. 10. Peak/mean gradient across the Aortic Valve is 60.44mmHg / 34.82mmHg. 11. Mild mitral annular calcification present. 12. Mild mitral regurgitation is present. 13. Mild tricuspid regurgitation present. 14. There is no evidence of pulmonary hypertension. 15. The right ventricular systolic pressure, as measured by Doppler, is 27.65mmHg. 16. There is no pulmonic regurgitation present. 17. The aortic root size is normal. 18. There is no pericardial effusion. INTERIOR DESIGN FACULTY MEMBER: Olga Phillips RDCS
--- NOTE | 2018-09-05 11:42 | P.PN ---
Subjective Progress Note Date: 09/05/18 Principal diagnosis: GI bleed Patient was seen and examined. No acute events overnight. Hemoglobin this morning under 7, transfuse 1 unit PRBC. Plans for EGD with push enteroscopy this morning. Patient reports 2 melanotic bowel movements yesterday. No bowel movement this morning. He denies any chest pain, shortness of breath or palpitations. Objective - Vital Signs Vital signs: Vital Signs Temp 98.3 F 09/05/18 08:00 Pulse 71 09/05/18 08:00 Resp 18 09/05/18 08:00 BP 125/60 09/05/18 08:00 Pulse Ox 99 09/05/18 08:00 Intake & Output 09/04/18 09/05/18 09/05/18 18:59 06:59 18:59 Intake Total 180 560 0 Output Total 550 Balance -370 560 0 Weight 69.1 kg Intake: Oral 180 560 Blood Product 0 Rc As-1 Unit 0 [id number] Output: Urine 250 Stool 300 Other: # Voids 1 2 1 # Bowel Movements 1 - Exam General: [non toxic], [no distress], [appears at stated age] Derm: [warm], [dry] Head: [atraumatic], [normocephalic], [symmetric] Eyes: [EOMI], [no lid lag], [anicteric sclera] Mouth: [no lip lesion], [mucus membranes moist] Cardiovascular: [S1S2 reg], [systolic murmur], [positive posterior tibial pulse bilateral], Lungs: [CTA bilateral], [no rhonchi, no rales] , [no accessory muscle use] Abdominal: [soft], [ nontender to palpation], [no guarding], [no appreciable organomegaly] Ext: [no gross muscle atrophy], [no edema], [no contractures] Neuro: [no focal neuro deficits] Psych: [Alert], [oriented], [appropriate affect] - Labs CBC & Chem 7: 09/05/18 06:27 09/05/18 06:27 Labs: Abnormal Lab Results - Last 24 Hours (Table) 09/03/18 09/04/18 09/04/18 Range/Units 14:33 13:58 21:05 WBC 2.7 L 2.1 L (3.8-10.6) k/uL RBC 2.48 L 2.49 L (4.30-5.90) m/uL Hgb 7.4 L 7.2 L (13.0-17.5) gm/dL Hct 22.3 L 22.6 L (39.0-53.0) % RDW 27.7 H 26.8 H (11.5-15.5) % Plt Count 97 L 92 L (150-450) k/uL Neutrophils # 1.0 L (1.3-7.7) k/uL Lymphocytes # 0.8 L (1.0-4.8) k/uL Chloride (98-107) mmol/L BUN (9-20) mg/dL Calcium (8.4-10.2) mg/dL Crossmatch See Detail 09/05/18 09/05/18 Range/Units 06:27 06:27 WBC 2.0 L (3.8-10.6) k/uL RBC 2.07 L (4.30-5.90) m/uL Hgb 6.5 L* (13.0-17.5) gm/dL Hct 18.9 L* (39.0-53.0) % RDW 28.0 H (11.5-15.5) % Plt Count 99 L (150-450) k/uL Neutrophils # (1.3-7.7) k/uL Lymphocytes # (1.0-4.8) k/uL Chloride 113 H (98-107) mmol/L BUN 28 H (9-20) mg/dL Calcium 8.2 L (8.4-10.2) mg/dL Crossmatch Assessment and Plan Assessment: Assessment and Plan 1. GI bleed secondary to AVM, acute blood loss anemia 2. Aortic stenosis 3. Pancytopenia 4. Hypertension 1. History of AVM. Hemoglobin from 7.22 to 6.5 this morning, ordered 1 unit PRBC. Continue Protonix IV. CBC every 8 hours. Gastroenterology consulted, plans for EGD and small bowel enteroscopy today. 2. Echocardiogram shows moderate to severe aortic stenosis. Patient with complaints of dizziness in the past, none currently. Will consult cardiology for further recommendations. 3. History of MGUS, sees Dr. Balderas in outpatient setting. Daily CBC. 4. BP 121/55. Hold home antihypertensiveatenolol, losartan, hydrochlorothiazide. Monitor vitals, adjust medications as necessary. Patient admitted for GI bleed. Transfused 1 unit this morning. Nothing by mouth for EGD and push enteroscopy.
[2018-09-05] MEDS ORDERED: PROPOFOL 10 MG/ML 20 ML VIAL IV ONE (12:45)
[2018-09-05] MEDS ORDERED: LIDOCAINE 1% INJ 10MG/ML (20 ML MDV) ONE (12:45)
[2018-09-05] MEDS ORDERED: IV FLUID CONTINUATION 700 ML IV ONE (12:57)
--- NOTE | 2018-09-05 14:47 | P.PCN ---
Date of Procedure: 09/05/18 Description of Procedure: BRIEF HISTORY: The patient is a pleasant 73-year-old male was admitted to the hospital with complaints of dark black tarry stools for the past 2 days. On presentation to the emergency room the patient was found to have a hemoglobin of 6.6. The patient has been seen since January for recurrent GI bleeding. On initial evaluation in January the patient was found to have peptic ulcer disease on upper endoscopy. He was seen in 05/2018 at which time he had an EGD which showed a healed duodenal ulcer and mild gastritis and a colonoscopy with a large rectal polyp which could not be completely removed. The patient had repeat flexible sigmoidoscopy with partial resection of the polyp in June 2018 and was scheduled to be followed up at [facility]. However the patient has remained anemic and was readmitted to the hospital 10 days ago with black tarry stools at which time upper endoscopy was significant only for gastritis. 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 He was on Plavix at that time which has been held. He presents back to the hospital with recurrent symptoms consistent with an upper GI bleed. PROCEDURE PERFORMED: Push enteroscopy. PREOPERATIVE DIAGNOSIS: Melena, anemia of acute blood loss. ESTIMATED BLOOD LOSS: Minimal. IV sedation per anesthesia. PROCEDURE: After informed consent was obtained, the patient was brought into the endoscopy unit. IV sedation was administered by Anesthesia under continuous monitoring. Initially the pediatric colonoscope was inserted into the mouth. Esophagus intubated without any difficulty. It was gradually advanced into the stomach and duodenum and carefully examined. The scope was able to be advanced to approxi mately 40 cm past the pylorus, with no old blood or active bleeding seen. Previously noted arteriovenous malformations, which were seen on video capsule endoscopy could not be identified. The scope at this time was withdrawn to the stomach, adequately insufflated with air, and upon careful examination, mucosa of the antrum, body, cardia and the fundus appeared normal. The scope was then withdrawn into the esophagus. The GE junction was located at 37 cm from the incisors. The esophagus appeared normal. There were no erosions or ulcerations seen and the patient tolerated the procedure well. IMPRESSION: 1. Push enteroscopy to approximately 40 cm past the pylorus, with no evidence of active bleeding or old blood seen. RECOMMENDATIONS: The findings of this examination were discussed with the patient, his and daughter. Okay for clear liquids. Continue to monitor hemoglobin and hematocrit and transfuse as needed. At this time given the recurrent nature of the patient's GI bleeding would recommend transfer to a tertiary referral center for further evaluation, with consideration for CT angiography with coiling, single or double balloon endoscopy or other more definitive modality given the persistence of the patient's symptoms. The case has been discussed with the admitting physician.
[2018-09-05 17:00] LABS: Anisocytosis Marked; Basophils % (A) 0 %; Eosinophils % (A) 2 %; HCT 22.6 % (39.0-53.0); HGB 7.4 gm/dL (13.0-17.5); Hypochromasia Slight; Lymphocytes # (A) 0.6 k/uL (1.0-4.8); Lymphocytes % (A) 32 %; MCH 30.2 pg (25.0-35.0); MCHC 32.7 g/dL (31.0-37.0); MCV 92.4 fL (80.0-100.0); Macrocytosis Moderate; Mean Platelet Volume 11.8; Monocytes # (A) 0.1 k/uL (0-1.0); Monocytes % (A) 5 %; Neutrophils # (A) 1.2 k/uL (1.3-7.7); Neutrophils % (A) 60 %; RBC 2.44 m/uL (4.30-5.90)
[2018-09-05 17:10] LABS: Platelet Count 92 k/uL (150-450); RDW 25.3 % (11.5-15.5)
[2018-09-05] MEDS: ATORVASTATIN 10 MG TAB PO SCH (20:49)
[2018-09-05 21:09] VITALS: BP 112/64; PULSE 72; RESP 16; TEMP 97
== END 2018-09-05 21:49 | disposition short-term general hospital (02) | DRG 300 ==
LOC: EC 14:00 → 3SCARD 15:01
PROVIDERS: ADMIT Internal Medicine; ATTEND Internal Medicine
PROC: 30233N1 Transfusion of Nonautologous Red Blood Cells into Peripheral Vein, Percutaneous Approach (ICD-10-PCS; principal; 2018-09-03)
PROC: 0DJ08ZZ Inspection of Upper Intestinal Tract, Via Natural or Artificial Opening Endoscopic (ICD-10-PCS; 2018-09-05)
DX: Q27.33 Arteriovenous malformation of digestive system vessel (principal); D61.818 Other pancytopenia; D62 Acute posthemorrhagic anemia; N17.9 Acute kidney failure, unspecified; E78.5 Hyperlipidemia, unspecified; E86.1 Hypovolemia; F17.200 Nicotine dependence, unspecified, uncomplicated; I10 Essential (primary) hypertension; I35.0 Nonrheumatic aortic (valve) stenosis; K29.70 Gastritis, unspecified, without bleeding; K62.1 Rectal polyp; K26.9 Duodenal ulcer, unspecified as acute or chronic, without hemorrhage or perforation; I95.9 Hypotension, unspecified; N40.0 Benign prostatic hyperplasia without lower urinary tract symptoms; Z79.899 Other long term (current) drug therapy; Z81.8 Family history of other mental and behavioral disorders; Z86.010 Personal history of colon polyps; Z87.11 Personal history of peptic ulcer disease; Z90.49 Acquired absence of other specified parts of digestive tract
CPT/HCPCS: 36415; 43235; 80048; 80053; 82272; 84132; 85025; 85027; 85610; 85730; 86850; 86900; 86901; 86920; 93306; 96374; 99285

== ENCOUNTER 2019-01-03 10:43 | Day surgery (SDC) | payer MEDICARE ==
[2018-12-30 08:56] VITALS: BMI 23.5
[2019-01-03 10:58] VITALS: RESP 18; TEMP 97.6
[2019-01-03] MEDS ORDERED: LIDOCAINE 1% 20 ML VIAL (10MG/ML) FOR IV START INTRADERMA ONE (11:03)
[2019-01-03] MEDS ORDERED: LACTATED RINGERS 1,000 ML IV ONE (11:09)
[2019-01-03 11:33] LABS: Anisocytosis Slight; Basophils % (A) 1 %; Eosinophils # (A) 0.1 k/uL (0-0.7); Eosinophils % (A) 2 %; HCT 28.6 % (39.0-53.0); HGB 9.5 gm/dL (13.0-17.5); Lymphocytes # (A) 0.8 k/uL (1.0-4.8); Lymphocytes % (A) 30 %; MCH 39.1 pg (25.0-35.0); MCHC 33.2 g/dL (31.0-37.0); MCV 117.6 fL (80.0-100.0); Macrocytosis Marked; Mean Platelet Volume 13.2; Monocytes # (A) 0.2 k/uL (0-1.0); Monocytes % (A) 6 %; Neutrophils # (A) 1.6 k/uL (1.3-7.7); Neutrophils % (A) 60 %; RBC 2.43 m/uL (4.30-5.90); RDW 19.1 % (11.5-15.5); WBC 2.7 k/uL (3.8-10.6)
[2019-01-03 12:12] LABS: Anisocytosis Slight; Basophils % (A) 0 %; Eosinophils # (A) 0.1 k/uL (0-0.7); Eosinophils % (A) 3 %; HCT 25.9 % (39.0-53.0); HGB 8.4 gm/dL (13.0-17.5); Lymphocytes # (A) 0.7 k/uL (1.0-4.8); Lymphocytes % (A) 31 %; MCHC 32.5 g/dL (31.0-37.0); Macrocytosis Marked; Mean Platelet Volume 12.2; Monocytes # (A) 0.1 k/uL (0-1.0); Monocytes % (A) 4 %; Neutrophils # (A) 1.3 k/uL (1.3-7.7); Neutrophils % (A) 61 %; RBC 2.27 m/uL (4.30-5.90); RDW 18.5 % (11.5-15.5); WBC 2.1 k/uL (3.8-10.6)
[2019-01-03] MEDS ORDERED: PROPOFOL 10 MG/ML 20 ML VIAL IV ONE (12:15)
[2019-01-03] MEDS ORDERED: LIDOCAINE 1% INJ 10MG/ML (20 ML MDV) ONE (12:15)
[2019-01-03 12:29] LABS: Poikilocytosis (M) Present
[2019-01-03 12:32] LABS: Large Platelets Present; Platelet Count 114 k/uL (150-450); Poikilocytosis (M) Present
--- NOTE | 2019-01-03 12:38 | P.PCN ---
Date of Procedure: 01/03/19 Preoperative Diagnosis: Pancytopenia, iron deficiency anemia Postoperative Diagnosis: Same Procedure(s) Performed: Bone marrow aspiration biopsy Anesthesia: MAC Surgeon: [employer]: Stated None Pathology: other Condition: stable Disposition: same day Indications for Procedure: Persistent pancytopenia. Iron deficiency anemia. Persistent anemia despite correction of iron deficiency. Operative Findings: Adequate sample Description of Procedure: The procedure was explained in detail to the patient and his family in the office. He was admitted to the outpatient endoscopy suite where IV access and informed consent were obtained. He was then placed in the left lateral decubitus position. The area over both posterior hilar crest was cleaned and prepped with chlorhexidine and sterile draping. IV sedation was then initiated. Local anesthesia was administered with lidocaine to the right posterior hilar crest. A Jamshidi needle was then inserted and bone marrow aspirate and biopsy obtained. On withdrawal of the needle hemostasis was easily achieved. Blood loss was minimal and recovery from sedation was satisfactory. He appeared to have tolerated the procedure well without any obvious immediate complications.
[2019-01-03 13:02] VITALS: BP 136/71; PULSE 60
[2019-01-03 13:25] LABS: Reticulocyte % 2.3 % (0.5-2.0)
== END 2019-01-03 13:14 | disposition home or self-care (01) ==
LOC: OR 10:43
PROVIDERS: ATTEND Internal Medicine Hematology & Oncology
DX: D53.9 Nutritional anemia, unspecified (principal); D72.818 Other decreased white blood cell count; D69.6 Thrombocytopenia, unspecified; D50.0 Iron deficiency anemia secondary to blood loss (chronic); I10 Essential (primary) hypertension; F17.200 Nicotine dependence, unspecified, uncomplicated; K92.2 Gastrointestinal hemorrhage, unspecified; Q27.33 Arteriovenous malformation of digestive system vessel; I65.22 Occlusion and stenosis of left carotid artery; E78.5 Hyperlipidemia, unspecified; M19.90 Unspecified osteoarthritis, unspecified site; Z97.2 Presence of dental prosthetic device (complete) (partial); Z79.899 Other long term (current) drug therapy
CPT/HCPCS: 85025; 85045; 38222; J2001; J2704

== ENCOUNTER 2019-02-17 06:18 | Day surgery (SDC) | payer MEDICARE ==
[2019-02-14 15:12] VITALS: BMI 23.9
[~2019-02-17 06:18] MED LIST changes: +ALPRAZolam 0.25 MG TAB PO PRN; +ALPRAZolam 0.5 MG TAB PO PRN; +ASPIRIN 325 MG TAB PO STA; +ATORVASTATIN 80 MG TAB PO STA; -LACTATED RINGERS 1,000 ML IV SCH; -LIDOCAINE 1% 20 ML VIAL (10MG/ML) FOR IV START INTRADERMA PRN; +NITROGLYCERIN SL TABS 0.4 MG TAB SUBLINGUAL PRN; +SODIUM CHLORIDE 0.9% 1,000 ML in EMPTY BAG 1 BAG IV ONE
[2019-02-17 07:00] VITALS: TEMP 98.1
[2019-02-17 07:04] LABS: Anisocytosis Slight; Basophils # (A) 0.1 k/uL (0-0.2); Basophils % (A) 3 %; Eosinophils # (A) 0.1 k/uL (0-0.7); Eosinophils % (A) 3 %; HCT 26.8 % (39.0-53.0); HGB 9.4 gm/dL (13.0-17.5); Hypochromasia Slight; Lymphocytes % (A) 35 %; MCH 41.3 pg (25.0-35.0); MCV 117.9 fL (80.0-100.0); Macrocytosis Marked; Mean Platelet Volume 12.3; Monocytes # (A) 0.1 k/uL (0-1.0); Monocytes % (A) 3 %; Neutrophils # (A) 1.5 k/uL (1.3-7.7); Neutrophils % (A) 55 %; Platelet Count 133 k/uL (150-450); RBC 2.28 m/uL (4.30-5.90); RDW 17.7 % (11.5-15.5); WBC 2.7 k/uL (3.8-10.6)
[2019-02-17 07:11] LABS: Calcium 9.4 mg/dL (8.4-10.2); Potassium 3.9 mmol/L (3.5-5.1)
[2019-02-17] MEDS ORDERED: fentaNYL (PF) 50 MCG/ML 2 ML AMP ONE (07:15)
[2019-02-17] MEDS: BENZOCAINE SPRAY 1 CAN MUCOUS MEM ONE ×2 (07:22→07:28)
[2019-02-17] MEDS ORDERED: LIDOCAINE 1% INJ 10MG/ML (20 ML MDV) ONE (07:23)
[2019-02-17] MEDS ORDERED: IV FLUID CONTINUATION 800 ML IV ONE (07:28)
[2019-02-17] MEDS ORDERED: MIDAZOLAM (PF) 2 MG/2 ML VIAL IV ONE (07:39)
[2019-02-17] MEDS ORDERED: fentaNYL (PF) 50 MCG/ML 2 ML AMP IV ONE (07:39)
[2019-02-17 08:00] LABS: Poikilocytosis (M) Present
[2019-02-17 08:01] LABS: RBC Fragments Present
[2019-02-17] MEDS ORDERED: LIDOCAINE 1% INJ 10MG/ML (20 ML MDV) SQ ONE (08:04)
[2019-02-17] MEDS ORDERED: MIDAZOLAM (PF) 2 MG/2 ML VIAL IVP ONE (08:04)
--- NOTE | 2019-02-17 08:09 | ECHOT ---
TRANSESOPHAGEAL ECHOCARDIOGRAM TRANSESOPHAGEAL ECHO: INDICATION: Aortic stenosis. PROCEDURE NOTE: After obtaining informed consent, transesophageal echocardiogram was performed in left lateral position using an Omni plane probe, 2 mg of Versed and 25 mcg of fentanyl were used for sedation. Patient tolerated the procedure well without any obvious immediate complications. FINDINGS: 1. 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 There is severe regurgitation of the aortic valve noted. 2. Mitral valve shows mild mitral regurgitation. 3. Left ventricle has normal size and systolic function. 4. Tricuspid valve appears anatomically normal. 5. INTERATRIAL SEPTUM: There is no evidence of [id number]-[id number] shunt by color-flow Doppler or cklkj-of-cxig shunt by agitated saline contrast study. 6. Aorta shows moderate atherosclerotic changes without any evidence of ascending aortic aneurysm. CONCLUSION: 1. 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 2. Mild mitral regurgitation. 3. Normal left ventricular systolic function. PLAN: Patient will undergo cardiac catheterization and will be referred to [facility] for evaluation for TAVR as the patient who has myelodysplastic syndrome and is currently being evaluated for bone marrow transplant. MMODL / IJN: [id number] /
[2019-02-17] MEDS ORDERED: RX INFO: IV CONTRAST WAS GIVEN 1 EACH MISC MISCELLANE PRN (08:29)
[2019-02-17] MEDS ORDERED: IOPAMIDOL-370 150ML BTL INJ ONE (08:30)
[2019-02-17] MEDS ORDERED: SODIUM CHLORIDE 0.9% 1,000 ML IV SCH (08:30)
--- NOTE | 2019-02-17 09:00 | CC ---
CARDIAC CATHETERIZATION REPORT PROCEDURE: Left heart catheterization. INDICATION: Aortic stenosis/regurgitation. PROCEDURE NOTE: After obtaining informed consent, left heart catheterization, coronary angiogram and aortogram were performed via the right femoral artery using standard Lillian catheters. Patient tolerated the procedure well without any obvious immediate complications. A femoral angiogram was performed and Angio-Seal was deployed for hemostasis. Patient received moderate conscious sedation. Total sedation time was 23 minutes. FINDINGS: 1. HEMODYNAMICS: Central aortic pressure is 126/70 mm. 2. AORTOGRAM: Aortogram is performed and shows severe aortic regurgitation. Ascending aorta does not appear enlarged. 3. ANGIOGRAPHIC DATA: Left Main Coronary Artery: Left main coronary artery is a normal-sized vessel and is free of stenosis. Divides into left anterior descending coronary artery and circumflex coronary artery. LAD and its branches; circumflex coronary artery and its branches are free of significant stenosis. Right coronary artery is a large dominant vessel and is free of significant stenosis. CONCLUSIONS: 1. A 3+ aortic regurgitation. 2. Normal coronary arteries. PLAN: Will refer the patient to the [facility] at . MMODL / IJN: [id number] /
[2019-02-17 11:40] VITALS: RESP 18
[2019-02-17 11:41] VITALS: BP 124/58; PULSE 73
== END 2019-02-17 13:34 | disposition home or self-care (01) ==
LOC: CATHCVL 06:18
PROVIDERS: ATTEND Internal Medicine Cardiovascular Disease
DX: Q23.8 Other congenital malformations of aortic and mitral valves (principal); I70.0 Atherosclerosis of aorta; I10 Essential (primary) hypertension; I65.23 Occlusion and stenosis of bilateral carotid arteries; E78.2 Mixed hyperlipidemia; D46.9 Myelodysplastic syndrome, unspecified; F17.210 Nicotine dependence, cigarettes, uncomplicated; Z79.899 Other long term (current) drug therapy; Z82.49 Family history of ischemic heart disease and other diseases of the circulatory system
CPT/HCPCS: 93312; 93320; 93325; 93454; 93567; 80048; 85025; C1760; C1894; C1769; J2001; J3010; J2250; Q9967

== ENCOUNTER → 2019-03-09 | Outpatient (CLI) | payer MEDICARE ==
[2019-03-09 15:17] LABS: Anisocytosis Slight; MCH 40.4 pg (25.0-35.0); MCHC 33.4 g/dL (31.0-37.0); MCV 121.1 fL (80.0-100.0); Macrocytosis Marked; Mean Platelet Volume 11.4; Platelet Count 105 k/uL (150-450); RBC 2.23 m/uL (4.30-5.90); RDW 17.2 % (11.5-15.5); WBC 2.9 k/uL (3.8-10.6)
[2019-03-09 16:37] LABS: Anisocytosis (M) Present; Monocytes # (M) 0.09 k/uL (0-1.0); Neutrophils % (M) 73 %; Nucleated Red Blood Cells 0 /100 WBC (0-0); Polychromasia Present; Total Cells Counted 100
[2019-03-10 03:21] LABS: African American GFR (CKD) 77.3 (60.0-200.0); Anion Gap 10.3 mmol/L (4.00-12.00); BUN/Creat Ratio 11.82 Ratio (12.00-20.00); Calcium 9.5 mg/dL (8.7-10.3); Carbon Dioxide 24.7 mmol/L (21.6-31.8); Potassium 4.6 mmol/L (3.5-5.5)
== END | disposition home or self-care (01) ==
LOC: LABWHC1 14:20
PROVIDERS: ATTEND Student in an Organized Health Care Education/Training Program
DX: I35.0 Nonrheumatic aortic (valve) stenosis (principal)
CPT/HCPCS: 36415; 80048; 83880; 85025

== ENCOUNTER → 2019-05-03 | Outpatient (CLI) | payer MEDICARE ==
--- NOTE | 2019-05-03 18:20 | US ---
EXAMINATION TYPE: US carotid duplex BILAT DATE OF EXAM: 05/03/2019 COMPARISON: CLINICAL HISTORY: Z01.818 PreSurgical. HTN, preop, no hx of TIA EXAM MEASUREMENTS: RIGHT: Peak Systolic Velocity (PSV) cm/sec ----- Right CCA: 88.6 ----- Right ICA: 141.7 ----- Right ECA: 104.3 ICA/CCA ratio: 1.6 RIGHT: End Diastole cm/sec ----- Right CCA: 13.8 ----- Right ICA: 17.5 ----- Right ECA: 0.0 LEFT: Peak Systolic Velocity (PSV) cm/sec ----- Left CCA: 95.3 ----- Left ICA: 143.1 ----- Left ECA: 104.3 ICA/CCA ratio: 1.5 LEFT: End Diastole cm/sec ----- Left CCA: 13.7 ----- Left ICA: 34.9 ----- Left ECA: 0.0 VERTEBRALS (direction of flow): Right Vertebral: Antegrade Left Vertebral: Antegrade Rhythm: Normal Bilateral wall thickening. No significant stenosis. Plaque visualized in bilateral bulbs. Elevated proximal right ICA, right mid ICA, left proximal ICA and distal left ICA. Kipr-ir-ixyfiexp peripheral plaque bilateral carotid bulbs. Increased peak systolic velocity bilatera l internal carotid arteries but end-diastolic velocity and ratios are within normal limits. IMPRESSION: Eyic-rk-zztrjyea atherosclerotic changes bilaterally without hemodynamic significant gerri nosis seen in either internal carotid artery. Criteria for Assigning % of Stenosis / Diameter reduction (Estimation based on the indirect measurements of the internal carotid artery velocities (ICA PSV). 1. Normal (no stenosis)=ICA PSV < 125 cm/s: ratio < 2.0: ICA EDV<40 cm/s. 2. Less than 50% stenosis=ICA PSV < 125 cm/s: ratio < 2.0: ICA EDV<40 cm/s. 3. 50 to 69% stenosis=ICA PSV of 125 to 230 cm/s: ration 2.0 ? 4.0: ICA EDV 40-100 cm/s. 4. Greater than 70% stenosis to near occlusion= ICA PSV > 230 cm/s: ratio > 4.0: ICA EDV > 100 cm/s. 5. Near occlusion= ICA PSV velocities may be low or undetectable: variable ratio and ICA EDV. 6. Total occlusion=unable to detect flow.
== END | disposition home or self-care (01) ==
LOC: RADUSWWP 15:32
PROVIDERS: ATTEND Thoracic Surgery (Cardiothoracic Vascular Surgery)
DX: I65.23 Occlusion and stenosis of bilateral carotid arteries (principal)
CPT/HCPCS: 93880

== ENCOUNTER → 2019-05-16 | Outpatient (CLI) | payer MEDICARE ==
[2019-05-16 13:49] LABS: Anisocytosis Slight; HCT 25.6 % (39.0-53.0); HGB 8.5 gm/dL (13.0-17.5); Hypochromasia Slight; MCH 40.2 pg (25.0-35.0); MCHC 33.2 g/dL (31.0-37.0); MCV 121.3 fL (80.0-100.0); Macrocytosis Marked; Mean Platelet Volume 13.3; RBC 2.11 m/uL (4.30-5.90); RDW 17.6 % (11.5-15.5); WBC 3.8 k/uL (3.8-10.6)
[2019-05-16 13:50] LABS: Appearance,Urine Clear (Clear); Bilirubin,Urine Negative (Negative); Blood,Urine Negative (Negative); Color,Urine Yellow; Glucose,Urine (UA) Negative (Negative); Ketones,Urine Negative (Negative); Leukocyte Esterase,Urine Moderate (Negative); Nitrite,Urine Negative (Negative); PH, Urine 7.5 (5.0-8.0); Protein,Urine 1+ (Negative); RBC,Urine 1 /hpf (0-5); Specific Gravity,Urine 1.008 (1.001-1.035); Urobilinogen,Urine <2.0 mg/dL (<2.0); WBC,Urine 3 /hpf (0-5)
[2019-05-16 14:07] LABS: INR 1.1 (<1.2); Prothrombin Time 11.3 sec (9.0-12.0)
[2019-05-16 14:22] LABS: Platelet Count 345 k/uL (150-450)
[2019-05-16 19:34] LABS: African American GFR (CKD) 77.3 (60.0-200.0); Albumin 4.3 g/dL (3.80-4.90); Albumin/Globulin Ratio 2.05 (1.60-3.17); Anion Gap 6.8 mmol/L (4.00-12.00); BUN/Creat Ratio 10.91 Ratio (12.00-20.00); Calcium 9.3 mg/dL (8.7-10.3); Carbon Dioxide 26.2 mmol/L (21.6-31.8); Globulin 2.1 g/dL (1.6-3.3); Non-African American GFR(CKD) 66.7 (60.0-200.0); Potassium 4.6 mmol/L (3.5-5.5); Total Bilirubin 0.5 mg/dL (0.3-1.2); Total Protein 6.4 g/dL (6.2-8.2)
== END | disposition home or self-care (01) ==
LOC: LABWHC1 12:52
PROVIDERS: ATTEND Thoracic Surgery (Cardiothoracic Vascular Surgery)
DX: Z01.812 Encounter for preprocedural laboratory examination (principal); I35.0 Nonrheumatic aortic (valve) stenosis
CPT/HCPCS: 36415; 80053; 81001; 85027; 85610

== ENCOUNTER 2019-05-23 02:03 | Observation (INO) | payer MEDICARE ==
[2019-05-23] MEDS ORDERED: MORPHINE SULFATE 4 MG/ML SYRINGE IM STA (02:29)
[2019-05-23] MEDS ORDERED: SODIUM CHLORIDE 0.9% 500 ML 500 ML IV ONE (02:29)
[2019-05-23] MEDS ORDERED: ONDANSETRON 4 MG/2 ML VIAL IVP STA (02:29)
--- NOTE | 2019-05-23 02:32 | ED ---
General Adult HPI - General Chief complaint: Abdominal Pain Stated complaint: Abdominal Pain, vomiting Time Seen by Provider: 05/23/19 02:15 Source: patient, RN notes reviewed, old records reviewed Mode of arrival: ambulatory Limitations: no limitations - History of Present Illness Initial comments: 74-year-old male presenting for evaluation generalized abdominal pain and vomiting. Patient has had greater than 10 episodes of vomiting today with any f ood or liquid. He said generalized abdominal pain. He does not had any bowel movement today. No diarrhea. No fever or chills. Patient was scheduled for aortic valve replacement at [facility] this morning. Denies significant dyspnea. He has intermittent chest pain which she's had for many months, unchanged from baseline. - Related Data Home Medications Medication Instructions Recorded Confirmed Atenolol [Tenormin] 50 mg PO BID 03/26/16 02/17/19 Finasteride [Proscar] 5 mg PO DAILY 03/26/16 02/17/19 Simvastatin [Zocor] 20 mg PO HS 03/26/16 02/17/19 Tamsulosin [Flomax] 0.4 mg PO BID 03/26/16 02/17/19 Esomeprazole Magnesium [NexIUM] 20 mg PO DAILY 12/30/18 02/17/19 Ferrous Sulfate [Feosol] 325 mg PO DAILY 12/30/18 02/17/19 Losartan/Hydrochlorothiazide 1 each PO QAM 12/30/18 02/17/19 [Losartan-Hctz 100-25 mg Tab] Previous Rx's Medication Instructions Recorded Acetaminophen Tab [Tylenol] 650 mg PO Q4HR PRN tab 02/02/18 Allergies Allergy/AdvReac Type Severity Reaction Status Date / Time No Known Allergies Allergy Verified 05/23/19 02:12 Review of Systems ROS Statement: Those systems with pertinent positive or pertinent negative responses have been documented in the HPI. ROS Other: All systems not noted in ROS Statement are negative. Past Medical History Past Medical History: Cancer, GI Bleed, Hyperlipidemia, Hypertension, Prostate Disorder, Rheumatoid Arthritis (RA) Additional Past Medical History / Comment(s): anemia, "bad heart valve", left sided carotid stenosis, heart murmer, bleeding ulcer 2017, bleed in small intestine 09/2018, "low platelets", dx. w/MDS in December-needs bone marrow transplant per pt. History of Any Multi-Drug Resistant Organisms: None Reported Past Surgical History: Appendectomy, Cholecystectomy, Tonsillectomy Additional Past Surgical History / Comment(s): COLONOSCOPY/EGD Past Anesthesia/Blood Transfusion Reactions: No Reported Reaction Additional Past Anesthesia/Blood Transfusion Reaction / Comment(s): Pt has received blood in past without reaction. Past Psychological History: No Psychological Hx Reported Smoking Status: Current every day smoker Past Alcohol Use History: None Reported Past Drug Use History: None Reported - Past Family History Mother Family Medical History: Cancer Additional Family Medical History / Comment(s): . Father Family Medical History: Deep Vein Thrombosis (DVT) Additional Family Medical History / Comment(s): Father lived to be 83 yrs old. Son(s) Family Medical History: Cancer General Exam Limitations: no limitations General appearance: alert, in no apparent distress Head exam: Present: atraumatic, normocephalic Eye exam: Present: normal appearance, PERRL ENT exam: Present: mucous membranes dry Neck exam: Present: normal inspection. Absent: tenderness, meningismus Respiratory exam: Present: normal lung sounds bilaterally. Absent: respiratory distress, wheezes Cardiovascular Exam: Present: regular rate, normal rhythm GI/Abdominal exam: Present: soft, tenderness (mild generalized tenderness to palpation). Absent: distended, guarding, rebound Extremities exam: Present: normal inspection, normal capillary refill. Absent: pedal edema Back exam: Present: normal inspection Neurological exam: Present: alert, oriented X3, CN II-XII intact. Absent: motor sensory deficit Psychiatric exam: Present: normal affect, normal mood Skin exam: Present: warm, dry, intact. Absent: cyanosis, diaphoretic Course Vital Signs 05/23/19 05/23/19 02:09 03:12 Temperature 98 F 98.7 F Pulse Rate 72 96 Respiratory 18 18 Rate Blood Pressure 184/55 175/59 O2 Sat by Pulse 100 99 Oximetry - Reevaluation(s) Reevaluation #1: 05/23/19 04:02 heart catheterization reviewed from 02/17/2019, normal coronary arteries. EKG Findings - EKG Comments: EKG Findings:: EKG: Normal sinus rhythm, left ventricular hypertrophy with repo larization abnormality, rate of 66, MA interval 126, QRS duration 98, QTC 444, no ST segment elevation, similar compared to previous EKG. Medical Decision Making - Medical Decision Making 74-year-old male presenting for evaluation of abdominal pain nausea vomiting. Patient has generalized abdominal pain with several episodes of vomiting. He a ppears dehydrated on exam. he has mild generalized tenderness to palpation. No rebound or guarding on exam. He has normal white blood cell count, hemoglobin is 8.4 which is stable for this patient. He has mild lactic acid 2.3. He has a potassium of 3.[address] negative for obstruction, negative for an acute process. There is fat stranding adjacent to the kidneys, possible previous obstruction, urinalysis is pending, patient has been unable to give a urine sample in the emergency department likely secondary to dehydration. This will be obtained. After multiple doses of antiemetics and pain medication he has persistent symptoms. He will be admitted for symptom control. Gastroenterology placed on consult. - Lab Data Result diagrams: 05/23/19 02:43 05/23/19 02:43 Lab Results 05/23/19 05/23/19 05/23/19 Range/Units 02:43 02:43 02:43 WBC 7.9 (3.8-10.6) k/uL RBC 2.11 L (4.30-5.90) m/uL Hgb 8.4 L (13.0-17.5) gm/dL Hct 25.0 L (39.0-53.0) % MCV 118.4 H (80.0-100.0) fL MCH 39.6 H (25.0-35.0) pg MCHC 33.4 (31.0-37.0) g/dL RDW 18.4 H (11.5-15.5) % Plt Count 459 H (150-450) k/uL Neutrophils % 86 % Lymphocytes % 8 % Monocytes % 5 % Eosinophils % 0 % Basophils % 5 % Neutrophils # 6.7 (1.3-7.7) k/uL Lymphocytes # 0.6 L (1.0-4.8) k/uL Monocytes # 0.4 (0-1.0) k/uL Eosinophils # 0.0 (0-0.7) k/uL Basophils # 0.4 H (0-0.2) k/uL Manual Slide Review Performed Large Platelets Present Hypochromasia Slight Poikilocytosis (manual Present Anisocytosis Slight Macrocytosis Marked A Ovalocytes Present Fragmented RBCs Present PT (9.0-12.0) sec INR (<1.2) APTT (22.0-30.0) sec Sodium 139 (137-145) mmol/L Potassium 3.4 L (3.5-5.1) mmol/L Chloride 101 (98-107) mmol/L Carbon Dioxide 28 (22-30) mmol/L Anion Gap 10 mmol/L BUN 11 (9-20) mg/dL Creatinine 0.98 (0.66-1.25) mg/dL Est GFR (CKD-EPI)AfAm 90 (>60 ml/min/1.73 sqM) Est GFR (CKD-EPI)NonAf 77 (>60 ml/min/1.73 sqM) Glucose 190 H (74-99) mg/dL Plasma Lactic Acid Jorge 2.3 H* (0.7-2.0) mmol/L Calcium 9.6 (8.4-10.2) mg/dL Total Bilirubin 0.7 (0.2-1.3) mg/dL AST 29 (17-59) U/L ALT 13 (4-49) U/L Alkaline Phosphatase 78 (38-126) U/L Total Protein 7.6 (6.3-8.2) g/dL Albumin 4.7 (3.5-5.0) g/dL Amylase 122 H (30-110) U/L Lipase 193 (23-300) U/L 05/23/19 Range/Units 02:43 WBC (3.8-10.6) k/uL RBC (4.30-5.90) m/uL Hgb (13.0-17.5) gm/dL Hct (39.0-53.0) % MCV (80.0-100.0) fL MCH (25.0-35.0) pg MCHC (31.0-37.0) g/dL RDW (11.5-15.5) % Plt Count (150-450) k/uL Neutrophils % % Lymphocytes % % Monocytes % % Eosinophils % % Basophils % % Neutrophils # (1.3-7.7) k/uL Lymphocytes # (1.0-4.8) k/uL Monocytes # (0-1.0) k/uL Eosinophils # (0-0.7) k/uL Basophils # (0-0.2) k/uL Manual Slide Review Large Platelets Hypochromasia Poikilocytosis (manual Anisocytosis Macrocytosis Ovalocytes Fragmented RBCs PT 11.3 (9.0-12.0) sec INR 1.1 (<1.2) APTT 25.2 (22.0-30.0) sec Sodium (137-145) mmol/L Potassium (3.5-5.1) mmol/L Chloride (98-107) mmol/L Carbon Dioxide (22-30) mmol/L Anion Gap mmol/L BUN (9-20) mg/dL Creatinine (0.66-1.25) mg/dL Est GFR (CKD-EPI)AfAm (>60 ml/min/1.73 sqM) Est GFR (CKD-EPI)NonAf (>60 ml/min/1.73 sqM) Glucose (74-99) mg/dL Plasma Lactic Acid Jorge (0.7-2.0) mmol/L Calcium (8.4-10.2) mg/dL Total Bilirubin (0.2-1.3) mg/dL AST (17-59) U/L ALT (4-49) U/L Alkaline Phosphatase (38-126) U/L Total Protein (6.3-8.2) g/dL Albumin (3.5-5.0) g/dL Amylase (30-110) U/L Lipase (23-300) U/L Disposition Clinical Impression: Abdominal pain, Intractable nausea and vomiting Disposition: ADMITTED IP TO THIS [facility] Condition: Stable Is patient prescribed a controlled substance at d/c from ED?: No Referrals: Kendall Chatman DO [Primary Care Provider] - 1-2 days Decision to Admit Reason: Admit from EC Decision Date: 05/23/19 Decision Time: 04:41
[2019-05-23] MEDS ORDERED: MORPHINE SULFATE 4 MG/ML SYRINGE IVP STA (02:43)
[2019-05-23 03:00] LABS: Anisocytosis Slight; Basophils # (A) 0.4 k/uL (0-0.2); Basophils % (A) 5 %; Eosinophils % (A) 0 %; HGB 8.4 gm/dL (13.0-17.5); Hypochromasia Slight; Lymphocytes # (A) 0.6 k/uL (1.0-4.8); Lymphocytes % (A) 8 %; MCH 39.6 pg (25.0-35.0); MCHC 33.4 g/dL (31.0-37.0); MCV 118.4 fL (80.0-100.0); Macrocytosis Marked; Mean Platelet Volume 13.6; Monocytes # (A) 0.4 k/uL (0-1.0); Monocytes % (A) 5 %; Neutrophils # (A) 6.7 k/uL (1.3-7.7); Neutrophils % (A) 86 %; Platelet Count 459 k/uL (150-450); RBC 2.11 m/uL (4.30-5.90); RDW 18.4 % (11.5-15.5); WBC 7.9 k/uL (3.8-10.6)
[2019-05-23 03:09] LABS: INR 1.1 (<1.2); Partial Thromboplastin Time 25.2 sec (22.0-30.0); Prothrombin Time 11.3 sec (9.0-12.0)
[2019-05-23 03:13] LABS: Albumin 4.7 g/dL (3.5-5.0); Calcium 9.6 mg/dL (8.4-10.2); Potassium 3.4 mmol/L (3.5-5.1); Total Bilirubin 0.7 mg/dL (0.2-1.3); Total Protein 7.6 g/dL (6.3-8.2)
--- NOTE | 2019-05-23 03:14 | CT ---
EXAMINATION TYPE: CT abdomen pelvis wo con DATE OF EXAM: 05/23/2019 COMPARISON: 08/29/2018 HISTORY: Abd pain CT DLP: 470.20 mGycm Automated exposure control for dose reduction was used. Lung bases are clear. There is no pleural effusion. Heart size is normal. There is no pericardial eff usion. There are clips from cholecystectomy. Liver and spleen appear normal. There is no sign of panc reatic mass. Stomach appears normal. There is no adrenal mass. Bile ducts are not dilated. Kidneys orta ve normal size. There is no hydronephrosis. Ureters are not dilated. There is no retroperitoneal adenopathy. There ar e numerous diverticula in the sigmoid colon. Bladder distends smoothly. There is no inguinal hernia. There is no free fluid in the pelvis. There is no sign of thickened appendix. There is a 2 mm calculus upper pole left kidney. There is no mesenteric edema. There is no ascites or free air. There is no sign of a bowel obstructio n. There is multilevel spondylotic changes in the lumbar spine. There is multilevel lumbar facet arth ropathy. Bony pelvis is intact. IMPRESSION: No evidence of renal obstruction. Mild fat stranding around the kidneys could relate to previous epis ode of obstruction. Nonobstructing small left renal calculus not significantly different than last ex am. No sign of acute abdomen and pelvis. Extensive colonic diverticulosis without diverticulitis.
[2019-05-23 03:20] LABS: Large Platelets Present; Ovalocytes Present; Poikilocytosis (M) Present
[2019-05-23 03:21] LABS: RBC Fragments Present
[2019-05-23] MEDS ORDERED: SODIUM CHLORIDE 0.9% 500 ML 500 ML IV STA (03:32)
[2019-05-23] MEDS ORDERED: HYDROmorphone 1 MG/ML 1 ML SYRINGE IVP STA (03:44)
[2019-05-23] MEDS ORDERED: HYDROmorphone 0.5 MG/0.5 ML SYRINGE IVP PRN (04:37)
[2019-05-23] MEDS ORDERED: ONDANSETRON 4 MG/2 ML VIAL IVP PRN (04:37)
[2019-05-23] MEDS ORDERED: NALOXONE 0.4 MG/ML 1 ML VIAL IV PRN (04:37)
[2019-05-23] MEDS ORDERED: ACETAMINOPHEN TAB 325 MG TAB PO PRN (04:37)
[2019-05-23] MEDS: 0.9% NACL WITH KCL 20 MEQ/L 1,000 ML IV SCH ×2 (05:05→18:39)
[2019-05-23 05:23] LABS: Appearance,Urine Clear (Clear); Bacteria,Urine Rare /hpf; Bilirubin,Urine Negative (Negative); Blood,Urine Moderate (Negative); Color,Urine Yellow; Glucose,Urine (UA) Negative (Negative); Hyaline Casts,Urine 125 /lpf (0-2); Ketones,Urine Negative (Negative); Leukocyte Esterase,Urine Negative (Negative); Mucus,Urine Occasional /hpf; Nitrite,Urine Negative (Negative); Protein,Urine 3+ (Negative); RBC,Urine 8 /hpf (0-5); Specific Gravity,Urine 1.019 (1.001-1.035); Urobilinogen,Urine <2.0 mg/dL (<2.0); WBC,Urine 2 /hpf (0-5)
[2019-05-23] MEDS: HYDROmorphone 1 MG/ML 1 ML SYRINGE IVP PRN ×3 (08:21→18:23)
[2019-05-23] MEDS: PANTOPRAZOLE 40 MG/10 ML VIAL IV SCH (08:50)
[2019-05-23] MEDS: ATENOLOL 50 MG TAB PO SCH ×2 (10:42→21:26)
[2019-05-23] MEDS: LOSARTAN-HCTZ 50-12.5 MG 1 EACH TAB PO SCH (10:42)
[2019-05-23] MEDS: FINASTERIDE 5 MG TAB PO SCH (10:42)
[2019-05-23] MEDS ORDERED: fentaNYL (PF) 50 MCG/ML 2 ML AMP ONE (13:23)
[2019-05-23] MEDS ORDERED: PROPOFOL 10 MG/ML 20 ML VIAL IV ONE (13:23)
[2019-05-23] MEDS ORDERED: MIDAZOLAM 2 MG/2 ML VIAL ONE (13:23)
[2019-05-23] MEDS ORDERED: LIDOCAINE 1% INJ 10MG/ML (20 ML MDV) ONE (13:23)
[2019-05-23] MEDS ORDERED: IV FLUID CONTINUATION 400 ML IV ONE (13:26)
--- NOTE | 2019-05-23 13:46 | P.PCN ---
Date of Procedure: 05/23/19 Procedure(s) Performed: BRIEF HISTORY: Patient is a 74 to-year-old, pleasant, white male, admitted hospital with acute onset of severe epigastric pain associated with nausea vomiting that started yesterday morning. Today he had a couple of episodes of coffee-ground emesis. he is hence scheduled for an upper endoscopy to evaluate further.. PROCEDURE PERFORMED: Esophagogastroduodenoscopy biopsy. PREOPERATIVE DIAGNOSIS: epigastric pain/nausea vomiting and coffee-ground emesis of 2 days' duration. IV sedation per anesthesia. PROCEDURE: After informed consent was obtained, the patient was brought into the endoscopy unit. IV sedation was administered by Anesthesia under continuous monitoring. Initially the Olympus GIF-140 video endoscope was inserted into the mouth. Esophagus intubated without any difficulty. It was gradually advanced into the stomach and duodenum and carefully examined. The second part of the duodenum appeared normal.in the bulb of the duodenum there was a 2 cm flat polyp that was biopsied. No ulcerations seen. The scope at this time was withdrawn to the stomach, adequately insufflated with air, and upon careful examination, mucosa of the antrum, body, cardia and the fundus appeared normal. The scope was then withdrawn into the esophagus. The GE junction was located at 39 cm from the incisors. There was mild erythema of the GE junction consistent with LA grade A reflux esophagitis.Therest of the esophagus appeared normal. The patient tolerated the procedure well. IMPRESSION: 1. Mild distal esophagitis. 2. 2 cm flat duodenal polyp status post biopsy. RECOMMENDATIONS: The findings of this examination were discussed with the patient. He'll be started on a full liquid diet. Continue on Protonix 40 mg twice daily. Follow with the biopsy results.. 74
--- NOTE | 2019-05-23 14:01 | P.HPIM ---
History of Present Illness H&P Date: 05/23/19 Chief Complaint: epigastric pain History of presenting complaint: This is a pleasant 74-year-old patient, left-sided carotid stenosis low platelets, myelodysplastic syndrome and a bone marrow transplant, aortic stenosis patient was due for a TAVR procedure this morning at [facility]. Patient had a bleeding peptic ulcer about a year ago. Patient yesterday morning started of with epigastric pain that became rather severe. She had been vomiting it was clear became more dark clear today. He does take iron supplement the stools always dark. The pain was localized to the epigastric.with no radiation.. Patient did feel weak and tired admitted for the same. Seen by GI awaiting her endoscopy Review of systems: GEN.: Tired EYES: None HEENT: None NECK: None RESPIRATORY: None CARDIOVASCULAR: None GASTROINTESTINAL: As above GENITOURINARY: None MUSCULOSKELETAL: Joint pains LYMPHATICS: None HEMATOLOGICAL: None PSYCHIATRY: None NEUROLOGICAL: None Social history: , patient smoked for over 50 years about a pack a day and for about a year and do down to a few cigarettes a day. No alcohol. Physical examination: VITAL SIGNS: 98, 72, 18, 184/55, 100% on room air GENERAL: BMI 24.3, laying in bed, but anxious. EYES: Pupils equal. Conjunctiva palel. HEENT: External appearance of nose and ears normal, oral cavity grossly normal. NECK: JVD not raised; masses not palpable. HEART: First and second heart sounds are normal; no edema. LUNGS: Respiratory rate normal; decreased breath sounds. ABDOMEN: Soft, nontender, liver spleen not palpable, no masses palpable. PSYCH: Alert and oriented x3; mood and affect normal. NEUROLOGICAL: Cranial nerves grossly intact; no facial asymmetry, power and sensation grossly intact. LYMPHATICS: No lymph nodes palpable in the axilla and neck INVESTIGATIONS, reviewed in the clinical context: White count 7.9 hemoglobin 8.4 hemoglobin was above About a month ago platelets 459 potassium 3.4 creatinine 0.98 EKG tracing personally reviewed by me-LVH with repolarization changes Computed tomography scan abdomen-left renal calculus nonobstructive, chronic diverticulosis Assessment: -Patient presents with acute abdomen with severe epigastric pain progressively getting worse. Patient does always have black stools but takes iron supplementation. Has a history of bleeding peptic ulcer disease over a year ago. suspect the same to be causing his symptoms. -Macrocytic anemia, cause unknown -Left renal calculi, asymptomatic -Colonic diverticulosis, asymptomatic -Hyperlipidemia -Essential hypertension -BPH -Chronic rheumatoid arthritis -Chronic left carotid stenosis -Chronic nicotine dependence patient cigarette smoker -Moderate to severe aortic stenosis, with preserved LV function EF 55-60% patient was due for aTAVR procedure the today. Will need to be rescheduled. Plan: Home medications were resumed. Patient's nothing by mouth since morning for procedure this afternoon in terms of EGD. Care was discussed with the patient question were answered. Past Medical History Past Medical History: Cancer, GI Bleed, Hyperlipidemia, Hypertension, Prostate Disorder, Rheumatoid Arthritis (RA) Additional Past Medical History / Comment(s): anemia, "bad heart valve", left sided carotid stenosis, heart murmer, bleeding ulcer 2017, bleed in small intestine 09/2018, "low platelets", dx. w/MDS in December-needs bone marrow transpl ant per pt. History of Any Multi-Drug Resistant Organisms: None Reported Past Surgical History: Appendectomy, Cholecystectomy, Tonsillectomy Additional Past Surgical History / Comment(s): COLONOSCOPY/EGD Past Anesthesia/Blood Transfusion Reactions: No Reported Reaction Additional Past Anesthesia/Blood Transfusion Reaction / Comment(s): Pt has received blood in past without reaction. Past Psychological History: No Psychological Hx Reported Additional Psychological History / Comment(s): . Smoking Status: Current every day smoker Past Alcohol Use History: None Reported Additional Past Alcohol Use History / Comment(s): Pt started smoking as a teen and was 1 ppd smoker until 01/2018. now down to 3-4 cigarettes daily Past Drug Use History: None Reported - Past Family History Mother Family Medical History: Cancer Additional Family Medical History / Comment(s): . Father Family Medical History: Deep Vein Thrombosis (DVT) Additional Family Medical History / Comment(s): Father lived to be 83 yrs old. Son(s) Family Medical History: Cancer Medications and Allergies Home Medications Medication Instructions Recorded Confirmed Type Atenolol [Tenormin] 50 mg PO BID 03/26/16 05/23/19 History Finasteride [Proscar] 5 mg PO DAILY 03/26/16 05/23/19 History Simvastatin [Zocor] 20 mg PO HS 03/26/16 05/23/19 History Losartan/Hydrochlorothiazide 1 tab PO DAILY 05/23/19 05/23/19 History [Losartan-Hctz 50-12.5 mg Tab] Allergies Allergy/AdvReac Type Severity Reaction Status Date / Time No Known Allergies Allergy Verified 05/23/19 08:44 Physical Exam Vitals: Vital Signs Temp Pulse Pulse Resp BP BP BP 05/23/19 07:35 98.2 F 79 18 161/56 05/23/19 05:31 98.6 F 76 18 165/57 05/23/19 04:50 90 18 176/59 05/23/19 03:12 98.7 F 96 18 175/59 05/23/19 02:09 98 F 72 18 184/55 Pulse Ox 05/23/19 07:35 92 L 05/23/19 05:31 92 L 05/23/19 04:50 98 05/23/19 03:12 99 05/23/19 02:09 100 Intake and Output 05/22/19 05/23/19 05/23/19 22:59 06:59 14:59 Intake Total 75 100 Balance 75 100 Intake: Intake, IV Titration 75 Amount 0.9% NaCl with KCl 20 Meq 75 /l 1,000 ml @ 75 mls/hr IV .[id number] [facility] Rx#: [id number] Oral 100 Other: Weight 70.307 kg Results CBC & Chem 7: 05/23/19 02:43 05/23/19 02:43 Labs: Abnormal Lab Results - Last 24 Hours (Table) 05/23/19 05/23/19 05/23/19 Range/Units 02:43 02:43 02:43 RBC 2.11 L (4.30-5.90) m/uL Hgb 8.4 L (13.0-17.5) gm/dL Hct 25.0 L (39.0-53.0) % MCV 118.4 H (80.0-100.0) fL MCH 39.6 H (25.0-35.0) pg RDW 18.4 H (11.5-15.5) % Plt Count 459 H (150-450) k/uL Lymphocytes # 0.6 L (1.0-4.8) k/uL Basophils # 0.4 H (0-0.2) k/uL Macrocytosis Marked A Potassium 3.4 L (3.5-5.1) mmol/L Glucose 190 H (74-99) mg/dL Plasma Lactic Acid Jorge 2.3 H* (0.7-2.0) mmol/L Amylase 122 H (30-110) U/L Urine Protein (Negative) Urine Blood (Negative) Urine RBC (0-5) /hpf Urine Bacteria (None) /hpf Hyaline Casts (0-2) /lpf Urine Mucus (None) /hpf 05/23/19 Range/Units 04:46 RBC (4.30-5.90) m/uL Hgb (13.0-17.5) gm/dL Hct (39.0-53.0) % MCV (80.0-100.0) fL MCH (25.0-35.0) pg RDW (11.5-15.5) % Plt Count (150-450) k/uL Lymphocytes # (1.0-4.8) k/uL Basophils # (0-0.2) k/uL Macrocytosis Potassium (3.5-5.1) mmol/L Glucose (74-99) mg/dL Plasma Lactic Acid Jorge (0.7-2.0) mmol/L Amylase (30-110) U/L Urine Protein 3+ H (Negative) Urine Blood Moderate H (Negative) Urine RBC 8 H (0-5) /hpf Urine Bacteria Rare H (None) /hpf Hyaline Casts 125 H (0-2) /lpf Urine Mucus Occasional H (None) /hpf Thrombosis Risk Factor Assmnt - Choose All That Apply Each Factor Represents 1 point: Medical pt on bed rest Each Risk Factor Represents 2 Points: Age 61-74 years Thrombosis Risk Factor Assessment Total Risk Factor Score: 3 Thrombosis Risk Factor Assessment Level: Moderate Risk
--- NOTE | 2019-05-23 19:07 | CONS ---
CONSULTATION DATE OF SERVICE: 05/23/2019 REQUESTING PHYSICIAN: Dr. Kendall Chatman. REASON FOR CONSULTATION: Severe epigastric pain, nausea, vomiting, coffee ground emesis. HISTORY OF PRESENT ILLNESS: The patient is a 74 -year-old pleasant white male came to the emergency room yesterday complaining of acute onset of severe epigastric pain associated with nausea, vomiting that started yesterday. He had several episodes of bilious emesis yesterday and this morning he had an episode of coffee-ground emesis and hence we are consulted for further evaluation. The patient denies any recent NSAID use. No prior history of peptic ulcer disease. He was scheduled to be seen at [facility] this morning, for aortic valve replacement, but because of these ongoing symptoms, he was admitted to [facility]. This morning, he is feeling somewhat better. He was started on IV Protonix 40 mg daily as well as Zofran. PAST MEDICAL HISTORY: Significant for hypertension, hyperlipidemia, BPH. He had EGD and colonoscopy sometime in August of this year when he presented with acute GI bleeding and subsequently was diagnosed with a small-bowel bleeding for which he was transferred to [facility] and according to the patient, underwent double balloon enteroscopy. PAST SURGICAL HISTORY: Tonsillectomy, appendectomy, cholecystectomy. MEDICATIONS: At home include Zocor, Proscar, Tenormin, Flomax, Nexium, Feosol, losartan hydrochlorothiazide ALLERGIES: No known drug allergies. SOCIAL HISTORY: Chronic smoker. No alcohol use. FAMILY HISTORY: Mother had some kind of cancer and father had DVT. REVIEW OF SYSTEMS: CARDIOPULMONARY: He denies any chest pain, shortness of breath. no dysuria or hematuria. MUSCULOSKELETAL unremarkable. SKIN unremarkable. ENDOCRINE unremarkable. PSYCHIATRIC unremarkable. NEUROLOGY unremarkable. ENT/vision unremarkable. CONSTITUTIONAL: No recent weight loss. No fever, chills, night sweats. PHYSICAL EXAMINATION: Blood pressure is 161/56, pulse rate 79, temperature 98.2. HEENT examination unremarkable. Conjunctivae pink. Sclerae anicteric. Oral cavity no lesions. NECK: No JVD or lymph node enlargement. CHEST: Clear to auscultation. HEART: Regular rate and rhythm. ABDOMEN: Soft. Bowel sounds are positive. No organomegaly. Mild tenderness in the epigastric area. Rest of the abdomen is benign. Bowel sounds are positive. EXTREMITIES: No pedal edema. SKIN no rashes. NEUROLOGIC: Alert and oriented x3. No focal deficits. LABS: WBC 7.9, hemoglobin 8.4, platelets 459, and MCV is 118. AST, ALT, T-bilirubin and alkaline phosphatase are within normal limits. Past lactic acid was 2.3 and it is 1.3 today, amylase and lipase are normal. He did have a CT abdomen and pelvis done in the emergency room yesterday that revealed nonobstructing small left renal calculus. Extensive colonic diverticulosis without any evidence of diverticulitis. IMPRESSION: 1. The patient presents to hospital with acute onset of severe epigastric pain associated with nausea, vomiting, and a few episodes of coffee-ground emesis rule out upper gastrointestinal pathology/peptic ulcer disease. The patient clinically doing better today. Hemoglobin is 8.4 g/dL. 2. Macrocytic anemia. 3. History of hypertension. 4. History of hypercholesteremia. RECOMMENDATIONS: 1. Continue with IV Protonix 40 mg daily. 2. Zofran as needed. 3. We will schedule an upper endoscopy today. Discussed with the patient, the risks, benefits and complications of procedure and he is agreeable to it. Thank you for this consultation. MMODL / IJN: [id number] /
[2019-05-23] MEDS ORDERED: PANTOPRAZOLE 40 MG TABLET PO STA (20:24)
[2019-05-23] MEDS: ATORVASTATIN 10 MG TAB PO SCH (21:26)
[2019-05-24] MEDS: PANTOPRAZOLE 40 MG/10 ML VIAL IV SCH (08:06)
[2019-05-24] MEDS: ATENOLOL 50 MG TAB PO SCH ×2 (08:06→21:03)
[2019-05-24] MEDS: LOSARTAN-HCTZ 50-12.5 MG 1 EACH TAB PO SCH (08:07)
[2019-05-24] MEDS: FINASTERIDE 5 MG TAB PO SCH (08:07)
[2019-05-24] MEDS ORDERED: RX INFO: IV CONTRAST WAS GIVEN 1 EACH MISC MISCELLANE PRN (09:53)
[2019-05-24] MEDS ORDERED: FUROSEMIDE 10 MG/ML 2 ML VIAL IV ONE (11:40)
--- NOTE | 2019-05-24 12:11 | CT ---
EXAMINATION TYPE: CT chest w con DATE OF EXAM: 05/24/2019 COMPARISON: None HISTORY: Low oxygen sat. Chest congestion CT DLP: 347.3 mGycm, Automated exposure control for dose reduction was used. CONTRAST: Performed injected with 100 ml mL of Isovue 300. TECHNIQUE: Axial images were obtained at 5 mm thick sections. Reconstructed images are reviewed on [employer] computer in the coronal plane. FINDINGS: Portion of the thyroid visualized is normal. Minimal bilateral pleural effusions are present. Pretracheal lymph node measures 1.1 cm. The ascending aorta diameter at the level of the main pulmon parish artery is 3.3 cm. The main pulmonary artery diameter at the bifurcation is 2.8 cm. Study is not optimized for pulmonary embolism and small pulmonary emboli will not be able to be visualized. Limited CT sections are obtained through the upper abdomen. Abdomen is essentially unremarkable. IMPRESSIONS: 1. No suspicious acute changes to account for chest congestion. 2. Minimal bilateral pleural effusions. 3. There is a prominent lymph node in the pretracheal space measuring 1.1 cm.
[2019-05-24] MEDS ORDERED: FUROSEMIDE 10 MG/ML 4 ML VIAL IV STA (12:21)
[2019-05-24] MEDS: 0.9% NACL WITH KCL 20 MEQ/L 1,000 ML IV SCH ×2 (13:03→21:13)
--- NOTE | 2019-05-24 13:29 | XR ---
EXAMINATION TYPE: XR chest 2V DATE OF EXAM: 05/24/2019 COMPARISON: Prior chest x-ray 01/30/[address] scan 05/24/2019 HISTORY: Pulmonary edema TECHNIQUE: Frontal and lateral views of the chest are obtained. FINDINGS: There is a prominent interstitium. No evident pneumothorax or pleural effusion. There are prominent lung volumes. Surgical clips present right upper quadrant. Heart size is stable. Aorta is d ense. No evident pneumothorax. IMPRESSION: Correlate for early interstitial edema, there is underlying cardiomegaly, emphysema.
[2019-05-24 21:03] VITALS: BP 158/60; PULSE 71; RESP 18; TEMP 99.1
[2019-05-24] MEDS: ATORVASTATIN 10 MG TAB PO SCH (21:03)
--- NOTE | 2019-05-25 00:16 | P.DS ---
Providers Date of admission: 05/23/19 04:39 Expected date of discharge: 05/25/19 Attending physician: Clint Cifuentes Primary care physician: [facility] Course: Chief Complaint: epigastric pain History of presenting complaint: This is a pleasant 74-year-old patient, left-sided carotid stenosis low platelets, myelodysplastic syndrome and a bone marrow transplant, aortic stenosis patient was due for a TAVR procedure this morning at [facility]. Patient had a bleeding peptic ulcer about a year ago. Patient yesterday morning started of with epigastric pain that became rather severe. She had been vomiting it was clear became more dark clear today. He does take iron supplement the stools always dark. The pain was localized to the epigastric.with no radiation.. Patient did feel weak and tired admitted for the same. EGD showed mild distal esophagitis. Patient also has some shortness of breath. Pulmonary embolus was ruled out. [place] to have pulmonary edema possibly from IV fluids. Given IV Lasix today. made good urine.. lungs cleared up. Pulse oxing well on room air. Patient had a scheduledTAVR at [facility] today. His is rescheduling the same. Had a lengthy talk the patient today. Home on 20 mg of Lasix. To see his computer project manager next week. Discussion and discharge planning more than 35 minutes Consultation: Dr. Dayan Wu from GI Physical examination: VITAL SIGNS:99.1, 71, 18, 158/60, 95% room air GENERAL: sitting up, comfortables. EYES: Pupils equal. Conjunctiva palel. HEENT: External appearance of nose and ears normal, oral cavity grossly normal. NECK: JVD not raised; masses not palpable. HEART: First and second heart sounds are normal; no edema. LUNGS: Respiratory rate normal; decreased breath sounds.clear ABDOMEN: Soft, nontender, liver spleen not palpable, no masses palpable. PSYCH: Alert and oriented x3; mood and affect normal. INVESTIGATIONS, reviewed in the clinical context: White count 7.9 hemoglobin 8.4 hemoglobin was above About a month ago platelets 459 potassium 3.4 creatinine 0.98 EKG tracing personally reviewed by me-LVH with repolarization changes Computed tomography scan abdomen-left renal calculus nonobstructive, chronic diverticulosis Assessment: -acute on chronic esophagitis. -Macrocytic anemia, cause unknown -Left renal calculi, asymptomatic -Colonic diverticulosis, asymptomatic -Hyperlipidemia -Essential hypertension -BPH -Chronic rheumatoid arthritis -Chronic left carotid stenosis -Chronic nicotine dependence patient cigarette smoker -Moderate to severe aortic stenosis, with preserved LV function EF 55-60% patient was due for aTAVR procedure the . now rescheduled for June. -Acute pulmonary edema likely from IV fluids. Responded well to IV Lasix disposition: Home Patient Condition at Discharge: Stable Plan - Discharge Summary New Discharge Prescriptions: New Omeprazole [PriLOSEC] 20 mg PO AC-BID #60 cap Furosemide [Lasix] 20 mg PO DAILY #30 tab Continue Simvastatin [Zocor] 20 mg PO HS Finasteride [Proscar] 5 mg PO DAILY Atenolol [Tenormin] 50 mg PO BID Losartan/Hydrochlorothiazide [Losartan-Hctz 50-12.5 mg Tab] 1 tab PO DAILY Discharge Medication List Atenolol [Tenormin] 50 mg PO BID 03/26/16 [History] Finasteride [Proscar] 5 mg PO DAILY 03/26/16 [History] Simvastatin [Zocor] 20 mg PO HS 03/26/16 [History] Losartan/Hydrochlorothiazide [Losartan-Hctz 50-12.5 mg Tab] 1 tab PO DAILY 05/23/19 [History] Omeprazole [PriLOSEC] 20 mg PO AC-BID #60 cap 05/23/19 [Rx] Furosemide [Lasix] 20 mg PO DAILY #30 tab 05/24/19 [Rx] Follow up Appointment(s)/Referral(s): computer project managerdr [Other] - 1 Week (Please call your computer project manager and schedule appointment.) Cortney Wu MD [STAFF PHYSICIAN] - 2 Weeks (Please call office and schedule appointment. ) Kendall Chatman DO [Primary Care Provider] - 3 Days (Please call office and schedule appointment.) Patient Instructions/Handouts: Acute Nausea and Vomiting (DC), Esophagitis (DC) Discharge Disposition: HOME SELF-CARE
== END 2019-05-24 21:39 | disposition home or self-care (01) ==
LOC: SUPCPDRO 02:03 → EC 02:03 → 1SOBS 04:39
PROVIDERS: ADMIT Hospitalist; ATTEND Hospitalist
DX: K20.9 Esophagitis, unspecified (principal); E78.00 Pure hypercholesterolemia, unspecified; E78.5 Hyperlipidemia, unspecified; E86.0 Dehydration; F17.210 Nicotine dependence, cigarettes, uncomplicated; I10 Essential (primary) hypertension; I35.0 Nonrheumatic aortic (valve) stenosis; I65.22 Occlusion and stenosis of left carotid artery; J81.0 Acute pulmonary edema; K31.7 Polyp of stomach and duodenum; K57.30 Diverticulosis of large intestine without perforation or abscess without bleeding; M06.9 Rheumatoid arthritis, unspecified; N20.0 Calculus of kidney; N40.0 Benign prostatic hyperplasia without lower urinary tract symptoms; Z87.11 Personal history of peptic ulcer disease; Z79.899 Other long term (current) drug therapy; Z90.49 Acquired absence of other specified parts of digestive tract; D53.9 Nutritional anemia, unspecified; D46.9 Myelodysplastic syndrome, unspecified; Z94.81 Bone marrow transplant status; Z84.89 Family history of other specified conditions
CPT/HCPCS: 96375 ×2; 96376; 96374; 99285; 36415; 93005; 88305; 80053; 82150; 83605; 83690; 84132; 85025; 85610; 85730; 81001; 71046; 71260; 74176; 43239; G0378 ×2; S0138 ×2; J2250; J2270; J1940; J2405; J2001; J3010; J1170; J2704; C9113 ×2; Q9967

== ENCOUNTER → 2019-06-27 | Outpatient (CLI) | payer MEDICARE ==
[2019-06-27 15:53] LABS: Anisocytosis Moderate; HCT 22.3 % (39.0-53.0); HGB 7.1 gm/dL (13.0-17.5); Hypochromasia Moderate; MCH 39.5 pg (25.0-35.0); MCHC 31.9 g/dL (31.0-37.0); Macrocytosis Marked; Mean Platelet Volume 13.4; Platelet Count 756 k/uL (150-450); Poikilocytosis Slight; RDW 20.4 % (11.5-15.5); WBC 7.4 k/uL (3.8-10.6)
[2019-06-27 15:54] LABS: MCV 123.8 fL (80.0-100.0)
[2019-06-27 15:58] LABS: INR 1.2 (<1.2)
[2019-06-27 16:18] LABS: Appearance,Urine Clear (Clear); Bilirubin,Urine Negative (Negative); Blood,Urine Negative (Negative); Color,Urine Yellow; Glucose,Urine (UA) Negative (Negative); Ketones,Urine Negative (Negative); Leukocyte Esterase,Urine Negative (Negative); Mucus,Urine Rare /hpf; Nitrite,Urine Negative (Negative); Protein,Urine 1+ (Negative); RBC,Urine 1 /hpf (0-5); Specific Gravity,Urine 1.011 (1.001-1.035); Urobilinogen,Urine <2.0 mg/dL (<2.0); WBC,Urine 2 /hpf (0-5)
[2019-06-28 01:12] LABS: African American GFR (CKD) 69.6 (60.0-200.0); Albumin 4.4 g/dL (3.80-4.90); Albumin/Globulin Ratio 2.1 (1.60-3.17); Anion Gap 9.6 mmol/L (4.00-12.00); BUN/Creat Ratio 9.17 Ratio (12.00-20.00); Calcium 8.4 mg/dL (8.7-10.3); Carbon Dioxide 24.4 mmol/L (21.6-31.8); Globulin 2.1 g/dL (1.6-3.3); Non-African American GFR(CKD) 60.1 (60.0-200.0); Potassium 4.9 mmol/L (3.5-5.5); Total Bilirubin 0.4 mg/dL (0.2-1.2); Total Protein 6.5 g/dL (6.2-8.2)
== END | disposition home or self-care (01) ==
LOC: LABWHC1 14:42
PROVIDERS: ATTEND Thoracic Surgery (Cardiothoracic Vascular Surgery)
DX: Z01.812 Encounter for preprocedural laboratory examination (principal); I35.0 Nonrheumatic aortic (valve) stenosis; Z51.81 Encounter for therapeutic drug level monitoring
CPT/HCPCS: 36415; 80053; 81001; 85027; 85610